=== PATIENT | female | born 1950 | race Caucasian/White ===

== ENCOUNTER 2023-06-17 08:00 | Outpatient (AMB) | payer MEDICARE, SELFPAY ==
--- NOTE | 2023-06-17 08:05 | A.OFFVIS_ITS ---
Intake Vital Signs 06/17/23 08:17 Height 5 ft 3 in Weight 186 lb 3 oz BMI 33.0 BP 110/80 Blood Pressure Location Lt brachial Position Sitting Pulse 68 Pulse Source Pulse Oximeter Pulse Oximetry (%) 97 Oxygen Delivery Method Room Air Intake Visit Reasons: E-DIGITAL ART DIRECTOR: Sleep Apnea /Headache-Confirmed Intake Note: NPV for headaches and sleep issues Anesthesiology Medical Doctor Required: No Allergies Bactrim Allergy (Severe, Uncoded 06/17/23 08:07) Rash HPI HPI Comments History of Present Illness Details 72 y/o female patient with anxiety and G ERD presents for new in-person visit for sleep consultation and migraine headache. Pt reports that she can't sleep well, having difficulty falling asleep and staying sleep. She is on mirtazapine 30 mg and it helps her to fall asleep. Pt feels she can't breath well when she sleep and also with any activities. Pt has not evaluated by flower arranger, yet. She wakes up frequently with gasping and having daytime tiredness and sleepiness. Pt also reports headache, feels buzzing on her frontal and occipital, it can last couple of hours to day. Resting in the dark room is the most helpful. Now she also headache almost once a week, more manageable. Pt takes propranolol 60 mg daily now. Pt reports that she had really bad headache before starting mirtazapine, it helps her sleep better and headache has improved. She tried magnesium, vitamin B2, Nurtec, Ajovy and physical therapy, but not really helpful to prevent headache. Sleep questionnaire: Have you ever been diagnosed with a sleep disorder? Insomnia. Have you ever had a sleep study in the past? No. Have you ever been treated for a sleep disorder? Yes, with mirtazapine. Do you take medications for a sleep disorder? Mirtazapine. Do you snore? Yes. Do you wake up gasping at night? Yes, sometimes. Do you have episodes of apneas? Don't know. If yes, are they witnessed? No. Do you have episodes of nocturnal chest pain or dyspnea? No. Do you have difficulty initiating sleep? Yes. Do you have difficulty maintaining sleep? Yes. Do you wake up tired? Yes. Do you have headaches upon awakening? Yes, maybe once a week, buzzing. Do you wake up with dry mouth or throat? Yes. Do you have GERD? Yes. Do you have nocturia? Yes. Do you have nocturnal leg cramps? Yes, sometimes. Do you have symptoms of restless legs? No. Do you act out your dreams? No. Sleep hygiene questionnaire: What is your usual sleep routine? Usual bedtime is at 9:30 pm; Usual wake up time is at 3 am. Do you take naps? No. Is your sleep environment cool, dark, and quiet? Yes. Do you exercise? No. Do you take caffeine or other stimulants? One cup of coffee in the morning sometimes. Do you use electronics in bed? No. What is your work schedule? N/A. Hypersomnolence questionnaire: Do you have daytime tiredness or fatigue? Yes. Do you easily fall asleep when inactive? No. Have you ever had episodes of sudden weakness? No. Have you ever had episodes of sudden weakness associated with strong emotions? No. PFSH Medical History (Updated 06/20/23 @ 08:31 by Kathy Shaikh CNP) Depression Anxiety HLD (hyperlipidemia) HTN (hypertension) Gallbladder calculus Surgical History (Updated 06/17/23 @ 08:15 by Sheryl White CMA) S/P spinal surgery Family History (Updated 06/17/23 @ 08:16 by Sheryl White CMA) Mother History of brain cancer Father AA (aortic aneurysm) Social History (Updated 06/17/23 @ 08:17 by Sheryl White CMA) Alcohol intake: never Patient Tobacco Use Status: Never used Tobacco Review of Systems Const All systems reviewed & are unremarkable except as noted in HPI and below ENT Reports Normal hearing present Neuro Reports Normal hearing present Physical Exam Vital Signs: Last Vital Signs Pulse 68 06/17/23 08:17 BP 110/80 06/17/23 08:17 Pulse Ox 97 06/17/23 08:17 Oxygen Delivery Method Room Air 06/17/23 08:17 BMI result Body Mass Index 33.0 Const General: cooperative Nutritional Appearance: obese Orientation/consciousness: patient oriented x3 Neck Neck: Yes full ROM and Yes supple Resp Effort & Inspection: audible wheezes Neuro General: patient oriented x3 and moves all extremities Cranial nerves: Yes Facial sensation intact/muscles of mastication intact, Yes Bilaterally intact EOM present, Yes Normal facial strength present, Yes Midline tongue present, Yes Symmetric palate elevation present, Yes Normal hearing present, Yes Ability to bilaterally rotate head present and Yes Ability to bilaterally elevate shoulders present Gait exam (Neuro): Antalgic gait present Motor exam (neuro): 5/5 motor strength present throughout, Pronator motor function not present and no tremor noted Psych Appearance: grossly normal Mental Status: mental status grossly normal Speech and movement: Normal speech and movement present Affect: normal affect Attitude: cooperative Assessment & Plan Assessment & Plan (1) Shortness of breath on exertion: Code(s): R06.02 - Shortness of breath (2) Daytime sleepiness: Code(s): R40.0 - Somnolence (3) Snoring: Code(s): R06.83 - Snoring (4) Insomnia: Code(s): G47.00 - Insomnia, unspecified (5) Headache: Code(s): R51.9 - Headache, unspecified Plan Pt is advised to undergo in lab sleep study to assess for sleep apnea. Will f/u with pt after study to discuss results and appropriate treatment options. Sleep hygiene education provided. Will consider refer patient to flower arranger after sleep study. Pt to call with any worsening concerns or questions. Orders: Orders RT PSG in-lab sleep study 06/17/23 E78.5 - Hyperlipidemia, unspecified, I10 - Essential (primary) hypertension, R06.02 - Shortness of breath, R06.83 - Snoring, R40.0 - Somnolence Coding Level of Care Code New Pt Level 4 (92425) Diagnoses Shortness of breath on exertion R06.02 Daytime sleepiness R40.0 Snoring R06.83 Insomnia G47.00 Headache R51.9
[2023-06-17 08:17] VITALS: BP 110/80; PULSE 68; O2SAT 97; BMI 33.0
== END 2023-06-17 08:50 | disposition home or self-care (01) ==
PROVIDERS: Visit Provider Nurse Practitioner Family
DX: R06.02 Shortness of breath (principal); R40.0 Somnolence; R06.83 Snoring; G47.00 Insomnia, unspecified; R51.9 Headache, unspecified
CPT/HCPCS: 99204

== ENCOUNTER → 2023-06-17 08:00 | Outpatient (BNVA) | payer MEDICARE, SELFPAY | PROVIDERS: Visit Provider Nurse Practitioner Family ==

== ENCOUNTER → 2023-07-05 20:30 | Outpatient (BNV) | payer MEDICARE, SELFPAY | PROVIDERS: Visit Provider Psychiatry & Neurology Neurology | DX: R06.83 Snoring (principal); R40.0 Somnolence; R09.02 Hypoxemia | CPT/HCPCS: 95810 ==

== ENCOUNTER → 2023-07-05 20:30 | Outpatient (REF) | payer MEDICARE, SELFPAY | LOC: HO.SL 20:30 | PROVIDERS: Visit Provider Nurse Practitioner Family | DX: R06.83 Snoring (principal); R40.0 Somnolence; R06.02 Shortness of breath | CPT/HCPCS: 95810 ==

== ENCOUNTER 2023-08-16 12:16 | Outpatient (REF) | payer MEDICARE, SELFPAY ==
[2023-08-16 12:40] LABS: ABG Refer to POC result
[2023-08-16 12:42] LABS: ABG Base Excess 4.7 mmol/L; ABG HCO3 27 mmol/L (22-26); ABG pCO2 36 mmHg (32-45); ABG pH 7.49 (7.35-7.45); ABG pO2 80 mmHg (83-108)
== END 2023-08-16 12:17 | disposition home or self-care (01) ==
LOC: HO.LAB 12:16
PROVIDERS: Visit Provider Nurse Practitioner Family
DX: R09.02 Hypoxemia (principal)
CPT/HCPCS: 82803

== ENCOUNTER 2023-10-13 09:34 | Outpatient (AMB) | payer MEDICARE, SELFPAY ==
--- NOTE | 2023-10-13 09:55 | MHC.OFFVIS ---
Intake Vital Signs 10/13/23 09:57 Height 5 ft 3 in Weight 184 lb 6.287 oz BMI 32.7 BP 126/84 Blood Pressure Location Rt brachial Position Sitting Pulse 70 Pulse Source Doppler Pulse Oximetry (%) 99 Oxygen Delivery Method Room Air Intake Visit Reasons: Hypoxemia Allergies Bactrim Allergy (Severe, Uncoded 06/17/23 08:07) Rash HPI Hypoxemia HPI Details 73-year-old lady, nonsmoker, with no prior history pulmonary concerns referred for evaluation of intermittent dyspnea on exertion, particularly with stairs and inclines, and nocturnal hypoxemia noted on sleep study did did not demonstrate underlying obstructive sleep apnea. Patient denies family history of lung disease. She was employed with no exposure to industrial dusts. She does complain of seasonal environmental allergies. She does have cats as pets. [facility] Medical History (Updated 10/13/23 @ 10:20 by Dank Kaiser MD) Depression Anxiety HLD (hyperlipidemia) HTN (hypertension) Gallbladder calculus Surgical History (Updated 06/17/23 @ 08:15 by Sheryl White CMA) S/P spinal surgery Family History (Updated 06/17/23 @ 08:16 by Sheryl White CMA) Mother History of brain cancer Father AA (aortic aneurysm) Social History Alcohol intake: never Patient Tobacco Use Status: Never used Tobacco Review of Systems Const Denies daytime sleepiness, Denies excessive sweating, Denies fatigue, Denies fever(s), Denies lethargy, Denies malaise, Denies night sweats, Denies snoring and Denies weight loss Eyes Denies blurry vision and Denies itchy eyes ENT Denies nasal congestion, Denies post nasal drip, Denies sinus pain, Denies sinus pressure and Denies other ( Thrush) Card Denies chest pain, Denies pedal edema, Denies dyspnea, Reports dyspnea on exertion, Reports orthopnea and Denies paroxysmal nocturnal dyspnea Resp Denies cough, Denies hemoptysis, Denies excessive phlegm production, Denies dyspnea, Reports dyspnea on exertion, Denies snoring and Denies wheezing GI Denies abdominal pain and Denies heartburn Musc Denies myalgias, Denies arthralgias and Denies joint swelling Skin/Breast Denies rash Neuro Denies memory loss and Denies seizure-like activity Psych Denies abnormal sleep pattern, Denies anxiety and Denies memory loss Endo Denies excessive sweating, Denies fatigue and Denies heat intolerance Chao/Lymph Denies easy bruising Aller/Immun Denies itchy eyes, Denies seasonal rhinorrhea and Denies wheezing Physical Exam Vital Signs: Last Vital Signs Pulse 70 10/13/23 09:57 BP 126/84 10/13/23 09:57 Pulse Ox 99 10/13/23 09:57 Oxygen Delivery Method Room Air 10/13/23 09:57 BMI result Body Mass Index 32.7 Const General: no acute distress and alert Nutritional Appearance: not obese Orientation/consciousness: Other orientation findings ( oriented) HEENT Head: Yes atraumatic Eyes General: appearance normal, both eyes and all related structures Sclerae: sclerae normal EOM: EOMs intact bilaterally Neck Neck: Yes supple Lymphatic: no lymphadenopathy noted Resp Effort & Inspection: normal respiratory effort and no use of accessory muscles Auscultation: clear to auscultation bilaterally Cardio Rate: regular rate Rhythm: regular rhythm Heart sounds: no gallops, no murmurs and no rubs Skin General skin exam: other ( warm) Extrem General: No clubbing, No cyanosis and Yes edema (Trace bilateral) Assessment & Plan Assessment & Plan (1) Dyspnea on exertion: Code(s): R06.09 - Other forms of dyspnea Plan: Unclear etiology, may have both cardiac and pulmonary components. Will obtain pulmonary function test and 2D echocardiogram for further evaluation. (2) Nocturnal hypoxemia: Code(s): G47.34 - Idiopathic sleep related nonobstructive alveolar hypoventilation Plan: Will obtain overnight oximetry for further evaluation. Orders: Orders PFT pulmonary function test Today R06.09 - Other forms of dyspnea CA echo transthoracic complete Today R06.09 - Other forms of dyspnea Overnight Pulse Oximetry Today G47.34 - Idiopathic sleep related nonobstructive alveolar hypoventilation Coding Level of Care Code New Pt Level 4 (27697) Diagnoses Dyspnea on exertion R06.09 Nocturnal hypoxemia G47.34
[2023-10-13 09:57] VITALS: BP 126/84; PULSE 70; O2SAT 99; BMI 32.7
== END 2023-10-13 10:19 | disposition home or self-care (01) ==
PROVIDERS: PCP Physician Assistant Medical; Referring Provider Nurse Practitioner Family; Visit Provider Internal Medicine Pulmonary Disease
DX: R06.09 Other forms of dyspnea (principal); G47.34 Idiopathic sleep related nonobstructive alveolar hypoventilation
CPT/HCPCS: 99204

== ENCOUNTER → 2023-10-13 09:34 | Outpatient (BNVA) | payer MEDICARE, SELFPAY | PROVIDERS: Referring Provider Nurse Practitioner Family; Visit Provider Internal Medicine Pulmonary Disease | DX: G47.34 Idiopathic sleep related nonobstructive alveolar hypoventilation (principal); R06.09 Other forms of dyspnea | CPT/HCPCS: 99202 ==

== ENCOUNTER 2023-10-20 08:57 | Outpatient (AMB) | payer MEDICARE, SELFPAY ==
--- NOTE | 2023-10-20 08:19 | A.OFFVIS_ITS ---
Intake Vital Signs 10/20/23 09:16 Height 5 ft 3 in Weight 185 lb BMI 32.8 BP 125/82 Blood Pressure Location Rt brachial Position Sitting Pulse 67 Pulse Source Pulse Oximeter Pulse Oximetry (%) 98 Oxygen Delivery Method Room Air Intake Visit Reasons: 4m follow up Sleep Apnea /Headache-LVM Intake Note: Patient presents for 4 month F/U. headaches dont go away Allergies Bactrim Allergy (Mild, Uncoded 10/20/23 09:23) Rash HPI HPI Comments History of Present Illness Details 73 y/o female patient presents for follo w up of sleep study. The PSG sleep study result was no evidence of sleep apnea. The AHI was less than 2 and O2 alcon was 79%. Oxygen was less than 88% for over 20 min, and supplemental oxygen was used during the sleep study. Pt reports she was refered to industrial green systems designer to assess hypoxemia and has appointment on 10/27/23. Pt reports started inhaler for wheezing and shortness of breath, but not really helpful. She can't walk more than 10 steps due to shortness of breath and need to rest. She has been wheezing for a long time. Pt states that she is a never smoker, no hx of asthma. Pt also has appointment with forms examiner. Pt reports she wakes up with pounding headache, it can last couple of hours to all day. She tried injection and nurtec but they did not help to prevent the headache. She uses mirtazapine for sleep. [facility] Medical History Depression Anxiety HLD (hyperlipidemia) HTN (hypertension) Gallbladder calculus Surgical History S/P spinal surgery Family History Mother History of brain cancer Father AA (aortic aneurysm) Social History Alcohol intake: never Patient Tobacco Use Status: Never used Tobacco Review of Systems Const All systems reviewed & are unremarkable except as noted in HPI and below ENT Reports Normal hearing present Neuro Reports Normal hearing present Physical Exam Vital Signs: Last Vital Signs Pulse 67 10/20/23 09:16 BP 125/82 10/20/23 09:16 Pulse Ox 98 10/20/23 09:16 Oxygen Delivery Method Room Air 10/20/23 09:16 BMI result Body Mass Index 32.8 Const General: no acute distress and alert Nutritional Appearance: not obese Orientation/consciousness: patient oriented x3 and Other orientation findings ( oriented) HEENT Head: Yes atraumatic Eyes General: appearance normal, both eyes and all related structures Sclerae: sclerae normal EOM: EOMs intact bilaterally Neck Neck: Yes supple Lymphatic: no lymphadenopathy noted Resp Effort & Inspection: audible wheezes Cardio Rate: regular rate Rhythm: regular rhythm Heart sounds: no gallops, no murmurs and no rubs Skin General skin exam: other ( warm) Neuro General: patient oriented x3 and moves all extremities Cranial nerves: Yes Facial sensation intact/muscles of mastication intact, Yes Bilaterally intact EOM present, Yes Normal facial strength present, Yes Midline tongue present, Yes Symmetric palate elevation present, Yes Normal hearing present, Yes Ability to bilaterally rotate head present and Yes Ability to bilaterally elevate shoulders present Gait exam (Neuro): Antalgic gait present Motor exam (neuro): 5/5 motor strength present throughout, Pronator motor function not present and no tremor noted Extrem General: No clubbing, No cyanosis and Yes edema (Trace bilateral) Psych Appearance: grossly normal Mental Status: mental status grossly normal Speech and movement: Normal speech and movement present Affect: normal affect Attitude: cooperative Assessment & Plan Assessment & Plan (1) Dyspnea on exertion: Code(s): R06.09 - Other forms of dyspnea (2) Nocturnal hypoxemia: Code(s): G47.34 - Idiopathic sleep related nonobstructive alveolar hypoventilation Plan Advised patient to continue to follow up with forms examiner and industrial green systems designer. Coding Level of Care Code Est Pt Level 3 (93814) Diagnoses Dyspnea on exertion R06.09 Nocturnal hypoxemia G47.34
[2023-10-20 09:16] VITALS: BP 125/82; PULSE 67; O2SAT 98; BMI 32.8
== END 2023-10-20 09:41 | disposition home or self-care (01) ==
PROVIDERS: Visit Provider Nurse Practitioner Family
DX: R06.09 Other forms of dyspnea (principal); G47.34 Idiopathic sleep related nonobstructive alveolar hypoventilation
CPT/HCPCS: 99213

== ENCOUNTER → 2023-10-20 08:57 | Outpatient (BNVA) | payer MEDICARE, SELFPAY | PROVIDERS: Visit Provider Nurse Practitioner Family | DX: R06.09 Other forms of dyspnea (principal); G47.34 Idiopathic sleep related nonobstructive alveolar hypoventilation | CPT/HCPCS: 99212 ==

== ENCOUNTER → 2023-10-31 09:34 | Outpatient (REF) | payer MEDICARE, SELFPAY ==
--- NOTE | 2023-10-31 09:37 | CA_ITS ---
Transthoracic Echocardiogram Patient (Last, First, Middle): Irina Erazo, Gender: Female Date of : 1950 Age: 73 Procedure Date: 10/31/2023 Procedure Type: Transthoracic Echocardiogram Location: OP Height: 157.48 cm Weight: 80.74 kg BSA: 1.82 m2 Heart Rate: bpm BP: 128 / 82 mmHg Forestry Technical Officer: Referring MD: Dank Kaiser MD Senior Project Manager Engineering: Ryan Aguilar MD Symptoms: R06.09 - Other forms of dyspnea Study Quality: Technically Difficult ECG Rhythm: Sinus Conclusions: - 1. Normal LV ejection fraction 55-60% with mild LVH with grade 1 diastolic dysfunction 2. Cardiac valves not well visualized with cardiac valvular Dopplers within normal limits 3. Normal RV systolic pressure Findings Left Ventricle Normal left ventricular size and systolic function. There is mildly increased left ventricular wall thickness. The visually estimated ejection fraction is between 55-60%. Regional wall motion abnormalities can not be excluded due to suboptimal endocardial definition. Spectral Doppler is indicative of an impaired relaxation filling pattern. E/E prime ratio is <8, consistent with normal filling pressures. Evidence suggests grade I (mild) diastolic dysfunction. Right Ventricle The right ventricle was not well visualized. Atria The left atrium is normal in size. There is lipomatous hypertrophy of the interatrial septum. Interatrial shunt cannot be excluded. The right atrium was not well visualized. Aortic Valve The aortic valve was not well visualized. There is no aortic valve stenosis. There is no aortic valve regurgitation. Mitral Valve There is mild anterior and posterior mitral leaflet thickening. There is trace mitral valve regurgitation. There is no mitral valve stenosis. Pulmonic Valve The pulmonic valve was not well visualized. Tricuspid Valve The tricuspid valve was not well visualized. There is trace tricuspid valve regurgitation. The right ventricular systolic pressure is normal. The right ventricular systolic pressure is 25 mmHg. Normal right atrial pressure. There is no evidence of pulmonary hypertension. Great Vessels The aorta was not well visualized. The pulmonary artery was not well visualized. Venous The inferior vena cava is normal in size and collapses greater than 50% with inspiration. Pericardium/Pleural The pericardium was not well visualized. Prior Study Comparison No prior study available for comparison. delay in reporting due to technical issues Measurements 2D Linear Measurements IVSd: 1.31 0.6-0.9/0.6-1.0 cm LVIDd: 3.87 3.9-5.3/4.2-5.9 cm LVIDd Index: 2.13 2.4-3.2/2.2-3.1 cm/m2 LVIDs: 2.58 2.0-3.6 cm LVPWd: 1.35 0.7-1.1 cm Ao Root: 3.00 2.1-3.5 cm LA Diam: 3.40 2.7-3.8/3.0-4.0 cm LAIDs Index: 1.87 1.5-2.3 cm/m2 LV Mass: 229.30 67-162/88-224 g LV Mass Index: 125.99 43-95/49-115 g/m2 LVOT Diam: 2.20 3.0+(-)1.3 cm 2D Systolic Function EF 4C: 61.80 >55% EF 2C: 56.80 >55% EF BiP: 59.50 >55% Mitral Valve MV Pk E: 0.46 MV PK A: 0.82 MV Decel Time: 297.00 E/A: 0.60 E'Lateral: 5.77 E'Medial: 4.24 E/E' Med: 10.80 E/E' Lat: 7.90 PHT: 87.00 MVA PHT: 2.53 Decel Wilkes: 1.54 Aortic Valve AoV Pk Ko: 1.61 AoV Mn Ko: 1.02 AoV VTI: 0.29 AoV Pk Grad: 10.00 Aov Mn Grad: 5.00 MONTSE Cont.VTI: 3.07 LVOT LVOT Pk Ko: 1.05 LVOT Mn Ko: 0.64 LVOT VTI: 0.23 LVOT Pk Grad: 4.00 LVOT Mn Grad: 2.00 LVOT Diam: 2.20 LVOT Area: 3.80 Diastolic Function MV Pk E: 0.46 MV Pk A: 0.82 E/A: 0.60 E'Medial: 4.24 E/E' Med: 10.80 E' Laterial: 5.77 E/E' Lat: 7.90 Right Ventricle TAPSE (mm): 18.00 TVS' Ko: 12.00 Tricuspid Valve TR Pk Ko: 2.33 TR Pk Grad: 22.00 RA Press: 3.00 RVSP: 25.00 Great Vessels Aorta Ao Root-2D: 3.00 2.0-3.7 cm Ao Asc: 3.20 2.1-3.4 cm Pulmonary Valve PV Pk Ko: 1.04 Peak PV Grad: 4.00 Updated in Other Vendor System with Status of Final Ryan Aguilar MD electronically signed on 11/03/2023 12:57:45 PM with status of Final
== END ==
LOC: HO.CARD 09:34
PROVIDERS: PCP Physician Assistant Medical; Visit Provider Internal Medicine Pulmonary Disease
DX: R06.09 Other forms of dyspnea (principal)
CPT/HCPCS: 93306

== ENCOUNTER → 2023-10-31 09:37 | Outpatient (BNV) | payer MEDICARE, SELFPAY | PROVIDERS: PCP Physician Assistant Medical; Visit Provider Internal Medicine Cardiovascular Disease | DX: I34.89 Other nonrheumatic mitral valve disorders (principal) | CPT/HCPCS: 93306 ==

== ENCOUNTER 2023-11-25 10:45 | Outpatient (REF) | payer MEDICARE, SELFPAY ==
[2023-11-25 08:34] VITALS: PULSE 65; RESP 14; O2SAT 98
--- NOTE | 2023-11-25 15:20 | PFT_ITS ---
Flows: FEV1: 73 % of predicted at 1.43 L FVC: 80 % of predicted at 2.02 L FEV1/FVC: 70 % Bronchodilator response: Absent Impression: Spirometry with no evidence of obstructive ventilatory defect, but suggestion of underlying restrictive ventilatory defect. MTDD
== END 2023-11-25 10:46 | disposition home or self-care (01) ==
LOC: HO.RESP 10:45
PROVIDERS: PCP Physician Assistant Medical; Visit Provider Internal Medicine Pulmonary Disease
DX: R06.09 Other forms of dyspnea (principal); G47.34 Idiopathic sleep related nonobstructive alveolar hypoventilation; Z91.09 Other allergy status, other than to drugs and biological substances
CPT/HCPCS: 94010; 94640; 94727; 94729; 99212

== ENCOUNTER 2023-11-25 11:43 | Outpatient (AMB) | payer MEDICARE, SELFPAY ==
[2023-11-25 11:45] VITALS: BP 138/82; PULSE 66; O2SAT 99; BMI 32.0
--- NOTE | 2023-11-25 11:45 | MHC.OFFVIS ---
Intake Vital Signs 11/25/23 11:45 Height 5 ft 3 in Weight 180 lb 12.465 oz BMI 32.0 BP 138/82 Blood Pressure Location Rt brachial Position Sitting Pulse 66 Pulse Source Doppler Pulse Oximetry (%) 99 Oxygen Delivery Method Room Air Intake Visit Reasons: Same day PFT Allergies Bactrim Allergy (Mild, Uncoded 10/20/23 09:23) Rash HPI Same day PFT HPI Details 73-year-old lady, nonsmoker, with no prior history pulmonary concerns referred for evaluation of intermittent dyspnea on exertion, particularly with stairs and inclines, and nocturnal hypoxemia noted on sleep study did did not demonstrate underlying obstructive sleep apnea. Patient denies family history of lung disease. She was employed with no exposure to industrial dusts. She does complain of seasonal environmental allergies. She does have cats as pets. After the last office visit patient had spirometry she was not able to tolerate full pulmonary function test demonstrates some bronchodilator response and suspicion for underlying restrictive ventilatory defect. She was not able to get BrezTri. She does derive symptomatic benefit from using DuoNebs during spirometry. [facility] Medical History Depression Anxiety HLD (hyperlipidemia) HTN (hypertension) Gallbladder calculus Surgical History S/P spinal surgery Family History Mother History of brain cancer Father AA (aortic aneurysm) Social History Alcohol intake: never Patient Tobacco Use Status: Never used Tobacco Review of Systems Const Denies daytime sleepiness, Denies excessive sweating, Reports fatigue, Denies fever(s), Denies lethargy, Denies malaise, Denies night sweats, Denies snoring and Denies weight loss Eyes Denies blurry vision and Denies itchy eyes ENT Denies nasal congestion, Denies post nasal drip, Denies sinus pain, Denies sinus pressure and Denies other ( Thrush) Card Denies chest pain, Denies pedal edema, Denies dyspnea, Reports dyspnea on exertion, Denies orthopnea and Denies paroxysmal nocturnal dyspnea Resp Denies cough, Denies hemoptysis, Denies excessive phlegm production, Denies dyspnea, Reports dyspnea on exertion, Denies snoring and Denies wheezing GI Denies abdominal pain and Denies heartburn Musc Denies myalgias, Denies arthralgias and Denies joint swelling Skin/Breast Denies rash Neuro Denies memory loss and Denies seizure-like activity Psych Denies abnormal sleep pattern, Denies anxiety and Denies memory loss Endo Denies excessive sweating, Reports fatigue and Denies heat intolerance Chao/Lymph Denies easy bruising Aller/Immun Denies itchy eyes, Denies seasonal rhinorrhea and Denies wheezing Physical Exam Vital Signs: Last Vital Signs Pulse 66 11/25/23 11:45 BP 138/82 11/25/23 11:45 Pulse Ox 99 11/25/23 11:45 Oxygen Delivery Method Room Air 11/25/23 11:45 BMI result Body Mass Index 32.0 Const General: no acute distress and alert Nutritional Appearance: not obese Orientation/consciousness: Other orientation findings ( oriented) HEENT Head: Yes atraumatic Eyes General: appearance normal, both eyes and all related structures Sclerae: sclerae normal EOM: EOMs intact bilaterally Neck Neck: Yes supple Lymphatic: no lymphadenopathy noted Resp Effort & Inspection: normal respiratory effort and no use of accessory muscles Auscultation: clear to auscultation bilaterally Cardio Rate: regular rate Rhythm: regular rhythm Heart sounds: no gallops, no murmurs and no rubs Skin General skin exam: other ( warm) Extrem General: No clubbing, No cyanosis and No edema Assessment & Plan Assessment & Plan (1) Dyspnea on exertion: Code(s): R06.09 - Other forms of dyspnea Plan: Results of spirometry reviewed, no fixed obstruction, some bronchodilator response, suggestive of underlying restrictive ventilatory defect. Patient does derive symptomatic benefit from duo nebs. Will start on Trelegy. Continue albuterol MDI. (2) Nocturnal hypoxemia: Code(s): G47.34 - Idiopathic sleep related nonobstructive alveolar hypoventilation Plan: Nocturnal oximetry study is pending. (3) Environmental allergies: Code(s): Z91.09 - Other allergy status, other than to drugs and biological substances Plan: Will obtain RAST panel, CBC, and IgE level for further evaluation. Orders: Orders Resp Allergy Profile Region I Today Z91.09 - Other allergy status, other than to drugs and biological substances Complete Blood Count Auto Diff Today Z91.09 - Other allergy status, other than to drugs and biological substances Medications: New Trelegy Ellipta 200-62.5-25 mcg ([id number]) 1 inh inhalation DAILY 30 days 1 ea 6RF NS Z91.09 - Other allergy status, other than to drugs and biological substances Coding Level of Care Code Est Pt Level 4 (70645) Diagnoses Dyspnea on exertion R06.09 Nocturnal hypoxemia G47.34 Environmental allergies Z91.09
== END 2023-11-25 12:02 | disposition home or self-care (01) ==
PROVIDERS: PCP Physician Assistant Medical; Visit Provider Internal Medicine Pulmonary Disease
DX: R06.09 Other forms of dyspnea (principal)
CPT/HCPCS: 94060; 94727; 94729; 99214

== ENCOUNTER 2023-12-15 09:51 | Outpatient (REF) | payer MEDICARE, SELFPAY ==
[2023-12-15 10:32] LABS: MANUAL DIFF FLAG NO
[2023-12-15 10:40] LABS: Basophils Absolute Auto 0.1 X10*3/uL (0.0-0.2); Basophils Percent Auto 0.7 % (0-2); Eosinophils Absolute Auto 0.2 X10*3/uL (0.0-0.4); Eosinophils Percent Auto 2.7 % (0-4); Hematocrit 42.4 % (37.0-47.0); Hemoglobin 14.5 g/dl (12.0-16.0); Imm Gran Abs Auto 0.03 X10*3/uL (0.00-0.03); Imm Gran Pct Auto 0.4 % (0.0-0.4); Lymphocytes Absolute Auto 2.8 X10*3/uL (1.2-4.9); Lymphocytes Percent Auto 35.2 % (20-40); Mean Corpuscular HGB Conc 34.2 g/dl (31.0-35.0); Mean Corpuscular Volume 90.8 fL (80.0-98.0); Mean Platelet Volume 9.4 fL (9.4-12.3); Monocytes Absolute Auto 0.5 X10*3/uL (0.1-1.2); Monocytes Percent Auto 6.6 % (2-11); Neutrophils Absolute Auto 4.4 x10*3/uL (2.0-8.3); Neutrophils Percent Auto 54.4 % (45-73); Platelet Count 258 X10*3/uL (160-400); Red Blood Count 4.67 X10*6/uL (4.20-5.50); Red Cell Distribution Width 12.2 % (11.0-16.0); White Blood Count 8.1 X10*3/uL (4.8-10.8)
== END 2023-12-15 09:52 | disposition home or self-care (01) ==
LOC: HO.LAB 09:51
PROVIDERS: PCP Physician Assistant Medical; Visit Provider Internal Medicine Pulmonary Disease
DX: J45.909 Unspecified asthma, uncomplicated (principal); G47.34 Idiopathic sleep related nonobstructive alveolar hypoventilation; Z91.09 Other allergy status, other than to drugs and biological substances
CPT/HCPCS: 36415; 82785; 85025; 86003; 99212

== ENCOUNTER 2023-12-15 09:51 | Outpatient (AMB) | payer MEDICARE, SELFPAY ==
[2023-12-15 09:52] VITALS: BP 138/82; PULSE 72; O2SAT 97; BMI 31.9
--- NOTE | 2023-12-15 09:52 | MHC.OFFVIS ---
Intake Vital Signs 12/15/23 09:52 Height 5 ft 3 in Weight 180 lb BMI 31.9 BP 138/82 Blood Pressure Location Rt brachial Position Sitting Pulse 72 Pulse Source Doppler Pulse Oximetry (%) 97 Oxygen Delivery Method Room Air Intake Visit Reasons: Dyspnea Allergies Bactrim Allergy (Mild, Uncoded 10/20/23 09:23) Rash HPI Dyspnea HPI Details 73-year-old lady, nonsmoker, with no prior history pulmonary concerns referred for evaluation of intermittent dyspnea on exertion, particularly with stairs and inclines, and nocturnal hypoxemia noted on sleep study did did not demonstrate underlying obstructive sleep apnea. Patient denies family history of lung disease. She was employed with no exposure to industrial dusts. She does complain of seasonal environmental allergies. She does have cats as pets. After the last office visit patient was started on Trelegy with significant improvement in her symptoms. She was not able to complete her immunologic testing yet. She denies any exacerbations. [facility] Medical History Depression Anxiety HLD (hyperlipidemia) HTN (hypertension) Gallbladder calculus Surgical History S/P spinal surgery Family History Mother History of brain cancer Father AA (aortic aneurysm) Social History Alcohol intake: never Patient Tobacco Use Status: Never used Tobacco Review of Systems Const Denies daytime sleepiness, Denies excessive sweating, Denies fatigue, Denies fever(s), Denies lethargy, Denies malaise, Denies night sweats, Denies snoring and Denies weight loss Eyes Denies blurry vision and Denies itchy eyes ENT Denies nasal congestion, Denies post nasal drip, Denies sinus pain, Denies sinus pressure and Denies other ( Thrush) Card Denies chest pain, Denies pedal edema, Denies dyspnea, Denies orthopnea and Denies paroxysmal nocturnal dyspnea Resp Denies cough, Denies hemoptysis, Denies excessive phlegm production, Denies dyspnea, Denies snoring and Denies wheezing GI Denies abdominal pain and Denies heartburn Musc Denies myalgias, Denies arthralgias and Denies joint swelling Skin/Breast Denies rash Neuro Denies memory loss and Denies seizure-like activity Psych Denies abnormal sleep pattern, Denies anxiety and Denies memory loss Endo Denies excessive sweating, Denies fatigue and Denies heat intolerance Chao/Lymph Denies easy bruising Aller/Immun Denies itchy eyes, Denies seasonal rhinorrhea and Denies wheezing Physical Exam Vital Signs: Last Vital Signs Pulse 72 12/15/23 09:52 BP 138/82 12/15/23 09:52 Pulse Ox 97 12/15/23 09:52 Oxygen Delivery Method Room Air 12/15/23 09:52 BMI result Body Mass Index 31.9 Const General: no acute distress and alert Nutritional Appearance: not obese Orientation/consciousness: Other orientation findings ( oriented) HEENT Head: Yes atraumatic Eyes General: appearance normal, both eyes and all related structures Sclerae: sclerae normal EOM: EOMs intact bilaterally Neck Neck: Yes supple Lymphatic: no lymphadenopathy noted Resp Effort & Inspection: normal respiratory effort and no use of accessory muscles Auscultation: clear to auscultation bilaterally Cardio Rate: regular rate Rhythm: regular rhythm Heart sounds: no gallops, no murmurs and no rubs Skin General skin exam: other ( warm) Extrem General: No clubbing, No cyanosis and No edema Assessment & Plan Assessment & Plan (1) Reactive airway disease: Code(s): J45.909 - Unspecified asthma, uncomplicated Plan: Significant improvement on Trelegy. Continue Trelegy and albuterol MDI. (2) Environmental allergies: Code(s): Z91.09 - Other allergy status, other than to drugs and biological substances Plan: Immunologic workup is pending. (3) Nocturnal hypoxemia: Code(s): G47.34 - Idiopathic sleep related nonobstructive alveolar hypoventilation Plan: Overnight oximetry is pending. Coding Level of Care Code Est Pt Level 4 (13045) Diagnoses Reactive airway disease J45.909 Environmental allergies Z91.09 Nocturnal hypoxemia G47.34
== END 2023-12-15 10:13 | disposition home or self-care (01) ==
PROVIDERS: PCP Internal Medicine; Visit Provider Internal Medicine Pulmonary Disease
DX: J45.909 Unspecified asthma, uncomplicated (principal); Z91.09 Other allergy status, other than to drugs and biological substances; G47.34 Idiopathic sleep related nonobstructive alveolar hypoventilation
CPT/HCPCS: 99214

== ENCOUNTER 2024-06-19 09:56 | Outpatient (AMB) | payer MEDICARE, SELFPAY ==
[2024-06-19 10:12] VITALS: BP 140/74; PULSE 89; O2SAT 100; BMI 30.5
--- NOTE | 2024-06-19 10:12 | A.OFFVIS_ITS ---
Vital Signs 06/19/24 10:12 Height 5 ft 3 in Weight 171 lb 15.369 oz BMI 30.5 BP 140/74 H Blood Pressure Location Rt brachial Position Sitting Pulse 89 Pulse Source Doppler Pulse Oximetry (%) 100 Oxygen Delivery Method Room Air Intake Visit Reasons: Dyspnea Allergies Bactrim Allergy (Mild, Uncoded 10/20/23 09:23) Rash HPI HPI Dyspnea: Details: 73-year-old lady, nonsmoker, followed for asthma and allergies. She has been using trilogy with good control of his symptoms, however it is very expensive for her when she hits [employer]. She denies recent exacerbations. Patient has not completed her RAST testing or overnight oximetry. [facility] Medical History Depression Anxiety HLD (hyperlipidemia) HTN (hypertension) Gallbladder calculus Surgical History S/P spinal surgery Family History Mother History of brain cancer Father AA (aortic aneurysm) Social History Alcohol intake: never Patient Tobacco Use Status: Never used Tobacco Review of Systems Const Denies daytime sleepiness, Denies excessive sweating, Denies fatigue, Denies fever(s), Denies lethargy, Denies malaise, Denies night sweats, Denies snoring and Denies weight loss Eyes Denies blurry vision and Denies itchy eyes ENT Denies nasal congestion, Denies post nasal drip, Denies sinus pain, Denies sinus pressure and Denies other ( Thrush) Card Denies chest pain, Denies pedal edema, Denies dyspnea, Denies orthopnea and Denies paroxysmal nocturnal dyspnea Resp Denies cough, Denies hemoptysis, Denies excessive phlegm production, Denies dyspnea, Denies snoring and Denies wheezing GI Denies abdominal pain and Denies heartburn Musc Denies myalgias, Denies arthralgias and Denies joint swelling Skin/Breast Denies rash Neuro Denies memory loss and Denies seizure-like activity Psych Denies abnormal sleep pattern, Denies anxiety and Denies memory loss Endo Denies excessive sweating, Denies fatigue and Denies heat intolerance Chao/Lymph Denies easy bruising Aller/Immun Denies itchy eyes, Denies seasonal rhinorrhea and Denies wheezing Physical Exam Vital Signs: Last Vital Signs Pulse 89 06/19/24 10:12 BP 140/74 H 06/19/24 10:12 Pulse Ox 100 06/19/24 10:12 Oxygen Delivery Method Room Air 06/19/24 10:12 BMI result Body Mass Index 30.5 Const General: no acute distress and alert Nutritional Appearance: not obese Orientation/consciousness: Other orientation findings ( oriented) HEENT Head: Yes atraumatic Eyes General: appearance normal, both eyes and all related structures Sclerae: sclerae normal EOM: EOMs intact bilaterally Neck Neck: Yes supple Lymphatic: no lymphadenopathy noted Resp Effort & Inspection: normal respiratory effort and no use of accessory muscles Auscultation: clear to auscultation bilaterally Cardio Rate: regular rate Rhythm: regular rhythm Heart sounds: no gallops, no murmurs and no rubs Skin General skin exam: other ( warm) Extrem General: No clubbing, No cyanosis and No edema Assessment & Plan Assessment & Plan (1) Reactive airway disease: Code(s): J45.909 - Unspecified asthma, uncomplicated Category: Medical Plan: Reasonable control on trilogy, however can not afford while in [facility], add AirDuo. (2) Environmental allergies: Code(s): Z91.09 - Other allergy status, other than to drugs and biological substances Category: Medical Plan: RAST and IgE level are pending for further workup. (3) Nocturnal hypoxemia: Code(s): G47.34 - Idiopathic sleep related nonobstructive alveolar hypoventilation Category: Medical Plan: Overnight oximetry ordered, but is not completed yet. Orders: Orders Resp Allergy Profile Region I Today Z91.09 - Other allergy status, other than to drugs and biological substances Medications: New fluticasone propion-salmeterol 113-14 mcg/actuation (AirDuo [employer]piClick) 1 inh inhalation BID 30 days 1 ea 3RF Z91.09 - Other allergy status, other than to drugs and biological substances Coding Level of Care Code Est Pt Level 4 (24309) Diagnoses Reactive airway disease J45.909 Environmental allergies Z91.09 Nocturnal hypoxemia G47.34
== END 2024-06-19 10:28 | disposition home or self-care (01) ==
PROVIDERS: PCP Internal Medicine; Visit Provider Internal Medicine Pulmonary Disease
DX: J45.909 Unspecified asthma, uncomplicated (principal); Z91.09 Other allergy status, other than to drugs and biological substances; G47.34 Idiopathic sleep related nonobstructive alveolar hypoventilation
CPT/HCPCS: 99214

== ENCOUNTER → 2024-06-19 09:56 | Outpatient (BNVA) | payer MEDICARE, SELFPAY | PROVIDERS: PCP Internal Medicine; Visit Provider Internal Medicine Pulmonary Disease | DX: J45.909 Unspecified asthma, uncomplicated (principal); G47.34 Idiopathic sleep related nonobstructive alveolar hypoventilation; Z91.09 Other allergy status, other than to drugs and biological substances | CPT/HCPCS: 99212 ==

== ENCOUNTER 2024-12-19 10:19 | Outpatient (AMB) | payer MEDICARE, SELFPAY ==
[2024-12-19 10:23] VITALS: BP 111/67; PULSE 85; O2SAT 99; BMI 29.9
--- NOTE | 2024-12-19 10:23 | MHC.OFFVIS ---
Vital Signs 12/19/24 10:23 Height 5 ft 3 in Weight 168 lb 10.458 oz BMI 29.9 BP 111/67 Blood Pressure Location Rt brachial Position Sitting Pulse 85 Pulse Source Doppler Pulse Oximetry (%) 99 Oxygen Delivery Method Room Air Intake Visit Reasons: Dyspnea Allergies Bactrim Allergy (Mild, Uncoded 10/20/23 09:23) Rash HPI HPI Dyspnea: Details: 74-year-old lady, nonsmoker, followed for asthma and allergies. She has been using Trelegy with reasonable, but not complete control of her symptoms, however it is very expensive for her when she hits [email or web address], at that time she is using AirDuo. She denies recent exacerbations. Patient has not completed her RAST testing or overnight oximetry. [facility] Medical History Depression Anxiety HLD (hyperlipidemia) HTN (hypertension) Gallbladder calculus Surgical History S/P spinal surgery Family History Mother History of brain cancer Father AA (aortic aneurysm) Social History Alcohol intake: never Patient Tobacco Use Status: Never used Tobacco Review of Systems Const Denies daytime sleepiness, Denies excessive sweating, Denies fatigue, Denies fever(s), Denies lethargy, Denies malaise, Denies night sweats, Denies snoring and Denies weight loss Eyes Denies blurry vision and Denies itchy eyes ENT Denies nasal congestion, Denies post nasal drip, Denies sinus pain, Denies sinus pressure and Denies other ( Thrush) Card Denies chest pain, Denies pedal edema, Denies dyspnea, Denies orthopnea and Denies paroxysmal nocturnal dyspnea Resp Denies cough, Denies hemoptysis, Denies excessive phlegm production, Denies dyspnea, Denies snoring and Denies wheezing GI Denies abdominal pain and Denies heartburn Musc Denies myalgias, Denies arthralgias and Denies joint swelling Skin/Breast Denies rash Neuro Denies memory loss and Denies seizure-like activity Psych Denies abnormal sleep pattern, Denies anxiety and Denies memory loss Endo Denies excessive sweating, Denies fatigue and Denies heat intolerance Chao/Lymph Denies easy bruising Aller/Immun Denies itchy eyes, Denies seasonal rhinorrhea and Denies wheezing Physical Exam Vital Signs: Last Vital Signs Pulse 85 12/19/24 10:23 BP 111/67 12/19/24 10:23 Pulse Ox 99 12/19/24 10:23 Oxygen Delivery Method Room Air 12/19/24 10:23 BMI result Body Mass Index 29.9 Const General: no acute distress and alert Nutritional Appearance: not obese Orientation/consciousness: Other orientation findings ( oriented) HEENT Head: Yes atraumatic Eyes General: appearance normal, both eyes and all related structures Sclerae: sclerae normal EOM: EOMs intact bilaterally Neck Neck: Yes supple Lymphatic: no lymphadenopathy noted Resp Effort & Inspection: normal respiratory effort and no use of accessory muscles Auscultation: clear to auscultation bilaterally Cardio Rate: regular rate Rhythm: regular rhythm Heart sounds: no gallops, no murmurs and no rubs Skin General skin exam: other ( warm) Extrem General: No clubbing, No cyanosis and No edema Assessment & Plan Assessment & Plan (1) Reactive airway disease: Code(s): J45.909 - Unspecified asthma, uncomplicated Category: Medical Plan: Improved, but suboptimal control on Trelegy, will consider immunologic therapy based on the laboratory evaluation. Continue Trelegy and albuterol MDI. (2) Hypoxemia: Code(s): R09.02 - Hypoxemia Category: Medical Plan: Overnight oximetry study is pending. (3) Environmental allergies: Code(s): Z91.09 - Other allergy status, other than to drugs and biological substances Category: Medical Plan: Likely underlying allergic component, immunologic workup is pending. Now also with allergic rhinitis, will start on nasal ipratropium. Medications: New ipratropium bromide administer into each nostril 2 sprays intranasal TID-QID PRN 15 mL 6RF nasal congestion Coding Level of Care Code Est Pt Level 4 (66899) Complex EM visit Add On G2211 Diagnoses Reactive airway disease J45.909 Hypoxemia R09.02 Environmental allergies Z91.09
--- OUTSIDE RECORDS SUMMARY | 2024-12-19 12:04 | XMS_ITS | Clinical Summary ---
Author Organization [facility] Address [address] [place] [address] Care Team Providers Care Panel Beater Name Role Phone Unavailable Primary Care Provider Unavailabl e Source Comments PLEASE NOTE, if this patient is a minor, it may be UNLAWFUL to discuss sensitive information that is contained in these records (such as FAMILY PLANNING, MENTAL HEALTH or SUBSTANCE ABUSE) with the minor patient's parent or other person without the patient's specific authorization.[facility] Immunizations Name Administration Dates Next Due Moderna COVID-19 Vaccine, re d cap blue label, 12+ Primary Series 11/20/2021,02/17/2021,01/20/2021 Social History Tobacco Use Types Packs/Day Years Used Date Smoking Tobacco: Never Assessed Social Connections Answer Date Recorded Connectedness 0 06/24/2024 Financial Resource Strain Answer Date R ecorded Financial Resource Strain 0 2021 Stress Answer Date Recorded Stress 0 11/20/2021 Physical Activity Answer Date Recorded Physical Activity 0 11/20/2021 Food Insecurity Answer Date Recorded Food 0 06/28/2024 Transportation Needs Answer Date Record ed Transportation 0 11/20/2021 Housing Stability Answer Date Recorded Housing 0 11/20/2021 Safety and Environment Answer Date Ke rded Safety 0 11/20/2021 Utilities Answer Date Recorded Utilities 0 11/20/2021 Employment Answer Date Recorded Stress 0 06/24/2024 Comments Unknown Sex and Gender Information Value Date Recorded Sex Assigned at Not on file Legal Sex Female 6:53 AM PDT Gender Identity Not on file Sexual Orientation Not on file Plan of Treatment Health Maintenance Due Date Last Done Comments Hepatitis C Screening 1950 Lipid Screening 1950 Tobacco Screening 1950 Hypertension Screening (#1) 1967 CT Colonography 1994 Colonoscopy 1994 Colorectal Cancer Screening 1994 FIT/gFOBT 1994 Fecal DNA 1994 Flexible Sigmoidoscopy 1994 Imm-Zoster, Recombinant (1 of 2) 1999 Imm-DTaP/Tdap/Td (1 - Tdap) 01/28/2001 01/27/2001 Bone Density Screening 2014 Falls Prevention 2014 Imm-Pneumococcal 65+ (2 of 2 - PPSV23) 08/04/2019 08/04/2018 [id number] ( season) 2024 11/20/2021, 02/17/2021, 01/20/2021 Imm-Influenza (#1) 2024 07/09/2021, 1 , 08/11/2019, Additional history exists Alcohol and Drug Screen 10/03/2024 Depression Annual Screen 10/03/2024 Insurance [employer] Member Subscriber Plan / Payer (Ef fective 2021-Present) Name:Irina Erazo Relation to Subscriber:Self Name:Irina Erazo Payer ID:[id number] Group ID:Not on file Type:Indemnity Address: [address] [place] [address]
--- OUTSIDE RECORDS SUMMARY | 2024-12-19 12:04 | XMS_ITS ---
Author Organization [facility] Address [address] [place] [address] Care Team Providers Care Medical Anthropology Director Name Role Phone DORIE MUÑOZ Unavailable [phone] AMBROCIO MARCIE Unavailable [phone] ALLERGIES Allergen (clinical drug ingredient) Drug/Non Drug Allergy documented on EMR Reaction Allergy Type Onset Date Status sulfamethoxazole / trimethoprim Bactrim Unknown Drug Allergy Active RESULTS Component Value Reference Range Notes TSH+T4F+T3Free Reviewed date:11/23/2024 08:13:13 AM Interpretation: Performing Lab:[facility], [address], [place], Phone - [phone], Director - Jose Notes/Report: TSH 0.444 0.450-4.500 uIU/mL Triiodothyronine (T3), Free 3.5 2.0-4.4 pg/mL T4,Free(Direct) 1.59 0.82-1.77 ng/dL REASON FOR VISIT pt is here for f/u on shaky and weak legs- pt states she stopped the buspirone because urgent care stated its a side affect of that med- pt is here today with nausea, cold body/chills, shaky legs andheadache every daysee task 11/20 MEDICATIONS Medication SIG (Take, Route, Frequency, Duration) Notes Start Date End Date Status Losartan Potassium-HCTZ 100-12.5 MG Take 1 tablet by mouth once daily for 90 Active predniSONE 10 MG 4 tab x 3 days 3 tab s x 3 days2 tabs x 3 days1 tab x 3 days Orally Once a day for 12 days 11/22/2024 Active busPIRone HCl 5 MG 1 tablet Orally Twic e a day for 30 days 10/25/2024 Not-Taking Atorvastatin Calcium 40 MG Take 1 tablet by mouth once daily for 90 Active Celecoxib 200 MG Take 1 capsule by mo uth once daily for 90 Active LORazepam 0.5 MG 1 tab Orally Once a day for 30 days 11/22/2024 Active Trelegy Ellipta 200-62.5-25 MCG/ACT 1 puff Inhalation Once a day Active Venlafaxine HCl ER 37.5 MG 1 capsule with food Orally Once a day for 90 days Active Omeprazole Magnesium 20 MG 1 tablet 1/2 to 1 hour before morning meal Orally Once a day for 90 days PRN Active Vitamin D 50 MCG (1999 UT) 1 tablet Orally Once a day Active Calcium 500 MG 1 tablet with meals Orally once daily Active SOCIAL HISTORY Tobacco Use: Social History Observation Description Date Details (start date - stop date) Never Smoker NA - NA Sex Assigned At : Social History Observation Description Sex Assigned At Unknown Tobacco Use/Smoking Question Answer Notes Are you a nonsmoker Section Notes: Tob: None ETOH: none Drug Use: None Retired. VITAL SIGNS Heart Rate 90 /min 11/22/2024 Blood pressure systolic 138 mm Hg 11/22/19 25 Blood pressure diastolic 78 mm Hg 025 Weight 169.8 lbs 11/22/2024 BMI 32.08 kg/m2 11/22/2024 Height 61 in 11/22/2024 Oximetry 96 % 11/22/2024 Encounters Encounter Location Date Provider Diagnosis [facility] [address] [place] [address] 11/22/2024 MARCIE ALBRECHT Shortness of breath R06.02 ; Acute upper respiratory infection, unspecified J06.9 ; Fibromyalgia M79.7 ; Anxiety F41.9 ; Headache, unspecified R51.9 and Dizzy R42 ASSESSMENTS Encounter Date Diagnosis Assessment Notes Treatment Notes Treatment Clinical Notes Section Notes 11/22/2024 Shortness of breath (ICD-10 - R06.02) Irina is a pleasant 74-year-old female with past medical history of GERD, essential hypertension, fibromyalgia, hyperlipidemia, anxiety, insomnia, overweight, migraines and exertional dyspnea who presents to the office today for headaches and intermittent dizziness along with nausea. #Upper respiratory infection: Viral swab negative. # L ear effusion. Abx did not help. Will do short course of prednisone. May require ENT/myringotomy #Nausea: Continued. Check CBC, CMP, Amylase/lipase, TSH #Anxiety: Continue venlafaxine HCl ER 37.5 mg capsules, continue lorazepam 0.5 mg as needed for anxiety. #Hyperlipidemia: Continue atorvastatin calcium 40 mg tablets. #Fibromyalgia: Patient does not admit to pain today #Insomnia: Patient does have lorazepam 0.5 mg tablets utilize as needed. #Intermittent dizziness: EKG in office today demonstrates sinus rhythm, low voltage with rightward P axis and rotation, possible pulmonary disease. Given patient's history of asthma this is reassuring. She does not have any chest pain All questions have been answered to patient's satisfaction. Patient verbalized understanding of diagnosis and treatments explained. Advised to call sooner prior to next visit it any questions/concerns arise. Case discussed with Liliane KITCHEN who reviewed the assessment and plan. Chart, medications, labs, vital signs reviewed. Dictation was accomplished with the use of [employer] Post voice recognition software, which is prone to medical misidentifications and grammatical errors. This are unintentional and the practitioner does try to identify and correct these, but some could still be present. Please do not hesitate to contact practitioner for clarification. 11/22/2024 Acute upper respiratory infection, unspecified (ICD-10 - J06.9) Irina is a pleasant 74-year-old female with past medical history of GERD, essential hypertension, fibromyalgia, hyperlipidemia, anxiety, insomnia, overweight, migraines and exertional dyspnea who presents to the office today for headaches and intermittent dizziness along with nausea. #Upper respiratory infection: Viral swab negative. # L ear effusion. Abx did not help. Will do short course of prednisone. May require ENT/myringotomy #Nausea: Continued. Check CBC, CMP, Amylase/lipase, TSH #Anxiety: Continue venlafaxine HCl ER 37.5 mg capsules, continue lorazepam 0.5 mg as needed for anxiety. #Hyperlipidemia: Continue atorvastatin calcium 40 mg tablets. #Fibromyalgia: Patient does not admit to pain today #Insomnia: Patient does have lorazepam 0.5 mg tablets utilize as needed. #Intermittent dizziness: EKG in office today demonstrates sinus rhythm, low voltage with rightward P axis and rotation, possible pulmonary disease. Given patient's history of asthma this is reassuring. She does not have any chest pain All questions have been answered to patient's satisfaction. Patient verbalized understanding of diagnosis and treatments explained. Advised to call sooner prior to next visit it any questions/concerns arise. Case discussed with Liliane KITCHEN who reviewed the assessment and plan. Chart, medications, labs, vital signs reviewed. Dictation was accomplished with the use of [employer] voice recognition software, which is prone to medical misidentifications and grammatical errors. This are unintentional and the practitioner does try to identify and correct these, but some could still be present. Please do not hesitate to contact practitioner for clarification. 11/22/2024 Fibromyalgia (ICD-10 - M79.7) Irina is a pleasant 74-year-old female with past medical history of GERD, essential hypertension, fibromyalgia, hyperlipidemia, anxiety, insomnia, overweight, migraines and exertional dyspnea who presents to the office today for headaches and intermittent dizziness along with nausea. #Upper respiratory infection: Viral swab negative. # L ear effusion. Abx did not help. Will do short course of prednisone. May require ENT/myringotomy #Nausea: Continued. Check CBC, CMP, Amylase/lipase, TSH #Anxiety: Continue venlafaxine HCl ER 37.5 mg capsules, continue lorazepam 0.5 mg as needed for anxiety. #Hyperlipidemia: Continue atorvastatin calcium 40 mg tablets. #Fibromyalgia: Patient does not admit to pain today #Insomnia: Patient does have lorazepam 0.5 mg tablets utilize as needed. #Intermittent dizziness: EKG in office today demonstrates sinus rhythm, low voltage with rightward P axis and rotation, possible pulmonary disease. Given patient's history of asthma this is reassuring. She does not have any chest pain All questions have been answered to patient's satisfaction. Patient verbalized understanding of diagnosis and treatments explained. Advised to call sooner prior to next visit it any questions/concerns arise. Case discussed with Liliane KITCHEN who reviewed the assessment and plan. Chart, medications, labs, vital signs reviewed. Dictation was accomplished with the use of [employer] voice recognition software, which is prone to medical misidentifications and grammatical errors. This are unintentional and the practitioner does try to identify and correct these, but some could still be present. Please do not hesitate to contact practitioner for clarification. 11/22/2024 Anxiety (ICD-10 - F41.9) Irina is a pleasant 74-year-old female with past medical history of GERD, essential hypertension, fibromyalgia, hyperlipidemia, anxiety, insomnia, overweight, migraines and exertional dyspnea who presents to the office today for headaches and intermittent dizziness along with nausea. #Upper respiratory infection: Viral swab negative. # L ear effusion. Abx did not help. Will do short course of prednisone. May require ENT/myringotomy #Nausea: Continued. Check CBC, CMP, Amylase/lipase, TSH #Anxiety: Continue venlafaxine HCl ER 37.5 mg capsules, continue lorazepam 0.5 mg as needed for anxiety. #Hyperlipidemia: Continue atorvastatin calcium 40 mg tablets. #Fibromyalgia: Patient does not admit to pain today #Insomnia: Patient does have lorazepam 0.5 mg tablets utilize as needed. #Intermittent dizziness: EKG in office today demonstrates sinus rhythm, low voltage with rightward P axis and rotation, possible pulmonary disease. Given patient's history of asthma this is reassuring. She does not have any chest pain All questions have been answered to patient's satisfaction. Patient verbalized understanding of diagnosis and treatments explained. Advised to call sooner prior to next visit it any questions/concerns arise. Case discussed with Liliane KITCHEN who reviewed the assessment and plan. Chart, medications, labs, vital signs reviewed. Dictation was accomplished with the use of [employer] voice recognition software, which is prone to medical misidentifications and grammatical errors. This are unintentional and the practitioner does try to identify and correct these, but some could still be present. Please do not hesitate to contact practitioner for clarification. 11/22/2024 Headache, unspecified (ICD-10 - R51.9) Irina is a pleasant 74-year-old female with past medical history of GERD, essential hypertension, fibromyalgia, hyperlipidemia, anxiety, insomnia, overweight, migraines and exertional dyspnea who presents to the office today for headaches and intermittent dizziness along with nausea. #Upper respiratory infection: Viral swab negative. # L ear effusion. Abx did not help. Will do short course of prednisone. May require ENT/myringotomy #Nausea: Continued. Check CBC, CMP, Amylase/lipase, TSH #Anxiety: Continue venlafaxine HCl ER 37.5 mg capsules, continue lorazepam 0.5 mg as needed for anxiety. #Hyperlipidemia: Continue atorvastatin calcium 40 mg tablets. #Fibromyalgia: Patient does not admit to pain today #Insomnia: Patient does have lorazepam 0.5 mg tablets utilize as needed. #Intermittent dizziness: EKG in office today demonstrates sinus rhythm, low voltage with rightward P axis and rotation, possible pulmonary disease. Given patient's history of asthma this is reassuring. She does not have any chest pain All questions have been answered to patient's satisfaction. Patient verbalized understanding of diagnosis and treatments explained. Advised to call sooner prior to next visit it any questions/concerns arise. Case discussed with Liliane KITCHEN who reviewed the assessment and plan. Chart, medications, labs, vital signs reviewed. Dictation was accomplished with the use of [employer] voice recognition software, which is prone to medical misidentifications and grammatical errors. This are unintentional and the practitioner does try to identify and correct these, but some could still be present. Please do not hesitate to contact practitioner for clarification. 11/22/2024 Dizzy (ICD-10 - R42) Irina is a pleasant 74-year-old female with past medical history of GERD, essential hypertension, fibromyalgia, hyperlipidemia, anxiety, insomnia, overweight, migraines and exertional dyspnea who presents to the office today for headaches and intermittent dizziness along with nausea. #Upper respiratory infection: Viral swab negative. # L ear effusion. Abx did not help. Will do short course of prednisone. May require ENT/myringotomy #Nausea: Continued. Check CBC, CMP, Amylase/lipase, TSH #Anxiety: Continue venlafaxine HCl ER 37.5 mg capsules, continue lorazepam 0.5 mg as needed for anxiety. #Hyperlipidemia: Continue atorvastatin calcium 40 mg tablets. #Fibromyalgia: Patient does not admit to pain today #Insomnia: Patient does have lorazepam 0.5 mg tablets utilize as needed. #Intermittent dizziness: EKG in office today demonstrates sinus rhythm, low voltage with rightward P axis and rotation, possible pulmonary disease. Given patient's history of asthma this is reassuring. She does not have any chest pain All questions have been answered to patient's satisfaction. Patient verbalized understanding of diagnosis and treatments explained. Advised to call sooner prior to next visit it any questions/concerns arise. Case discussed with Liliane KITCHEN who reviewed the assessment and plan. Chart, medications, labs, vital signs reviewed. Dictation was accomplished with the use of [employer] voice recognition software, which is prone to medical misidentifications and grammatical errors. This are unintentional and the practitioner does try to identify and correct these, but some could still be present. Please do not hesitate to contact practitioner for clarification. PLAN OF TREATMENT Medication Medication Name Sig Start Date Stop Date Notes predniSONE 10 MG 4 tab x 3 days 3 tab s x 3 days2 tabs x 3 days1 tab x 3 days Orally Once a day for 12 days 11/22/2024 LORazepam 0.5 MG 1 tab Orally Once a day for 30 days 11/22/2024 Venlafaxine HCl ER 37.5 MG 1 capsule wit h food Orally Once a day for 90 days Omeprazole Magnesium 20 MG 1 tablet 1/2 to 1 hour before morning meal Orally Once a day for 90 days PRN Pending Test Test Name Order Date MRI : Brain without Contrast 11/22/2024 ANTITHYROGLOBULIN AB 11/22/2024 LIPID PANEL, STANDARD 11/22/2024 COMPREHENSIVE METABOLIC PANEL 11/22/2024 CBC (INCLUDES DIFF/PLT) 11/22/2024 LIPASE 11/22/2024 AMYLASE 11/22/2024 VITAMIN B12 11/22/2024 Next Appt Details Provider Name:MARCIE ALBRECHT, 12/25/2024 09:45:00 AM, [address], [place], [address], Provider Name:MARCIE ALBRECHT, 02/12/2025 08:45:00 AM, [address], [place], [address], Progress Notes * IRINA BOONEDOB:1950 (74 yo F)Acc No.[id number]:11/22/2024 Progress Notes Patient:??IRINA BOONE Provider:??MARCIE ALBRECHT PA-C :1950?Age:74 Y?Sex:Fe male Date:11/22/2024 Address:[address] [place] [address], [facility] [phone] Subjective: * Chief Complaints: * ?1. Pt is here for f/u on shaky and weak legs- pt states she stopped the buspirone because urgent care stated its a side affect of that med- pt is here today with nausea, cold body/chills, shaky legs and headache every daysee task 11/20. * HPI: ?Constitutional:? Irina is a pleasant 74-year-old female with a past medical history of GERD, essential hypertension, fibromyalgia, hyperlipidemia, anxiety, insomnia, overweight, migraines, exertional dyspnea who presents to the office today for headaches, intermittent dizziness, and nausea. The patient was last week after being started on buspirone 5 mg tablets, she states that she began experiencing uncomfortable symptoms after trialing this medication and therefore has discontinued. She also stopped Venlafaxine, and reports that she has been crying more. She denies SI/HI. Reports tired of feeling in pain all the time. She has had persistentupper respiratory symptoms: Patient states that she has been experiencing upper respiratory symptoms, she has been around multiple sick contacts, experiencing headaches, sinus pressure and right-sided ear pain. Temperature noted to be in office 98.7. ?Lastly, she states she is terrfied she has a brain tumor. Her mother from a brain tumor. Patient has been having consistent headaches every day, and was requiring migraine medications, which has since improved. Over the past 8 weeks, the pain has been worsening. She also exhibits L sided ear pain. She was given Azithromycin last visit, with no improvement,. * ROS:?Constitutional: Patient denies any excessive fatigue with exercise, no weight loss, no fever and no night sweats ???Eyes: No eye discharge, no itching, no redness. ???Ear nose throat: + Right-sided ear pain, + headaches, + sinus pressure, no sore throat, postnasal drip, runny nose, Sneezing ???Cardiovascular: No chest pain, no shortness of breath, no dyspnea on exertion, no PND, no orthopnea, no irregular pulse ???Respiratory: No chronic cough, no hemoptysis, no sputum, no wheezing ???GI, no diarrhea, no constipation no blood in the stools, no pain associated with eating, no indigestion ???Genitourinary: No painful urination no hesitancy no blood in the urine ???Musculoskeletal, no limitations to walking and running, no joint deformity, no joint stiffness, no chronic back pain, no noise with joint movement ???Integumentary, no new skin rash. No new changes in skin moles ???Neurological: No history of seizures, memory loss, No language dysfunction, No inability to concentrate, no localized weakness, no sensation loss, no confusion, + headaches ???Psychiatric: No depression, no suicidal thoughts, + anxiety ???Endocrine: No polyuria no polyphagia or polydipsia, no heat intolerance no cold intolerance ???Hematological: No easy bruising or Lymph node swelling. * Medical History:??GERD witho ut esophagitis, Essential (primary) hypertension, Fibromyalgia, Hyperlipidemia, mild, Anxiety, Insomnia due to medical condition, Overweight, Migraines, Exertional dyspnea. * Surgical History:??cervical surgery , Status post cholecystectomy September 2022 at [place] . * Hospitalization/Major Diagno stic Procedure:??Denies Past Hospitalization. * Family History:??Father: dec eased.??Mother: .??2 brother(s) , 4 sister(s) . 2 son(s) . .?? mom cancer brain dad jasmin. * Social History:?Tobacco Use:??Tobacco Use/Smoking??Are you a??nonsmoker.?Tob: None ???ETOH: none ???Drug Use: None ???Retired. * Medications:??Taking Vitamin D 50 MCG (1999 UT) Tablet 1 tablet Orally Once a day , Taking Calcium 500 MG Tablet 1 tablet with meals Orally once daily , Taking Trelegy Ellipta 200-62.5-25 MCG/ACT Aerosol Powder Breath Activated 1 puff Inhalation Once a day , Taking Omeprazole Magnesium 20 MG Tablet Delayed Release 1 tablet 30 minutes before morning meal Orally NEEDED , Notes to Pharmacist: PRN, Taking Atorvastatin Calcium 40 MG Tablet Take 1 tablet by mouth once daily , Taking Celecoxib 200 MG Capsule Take 1 capsule by mouth once daily , Taking Losartan Potassium-HCTZ 100- 12.5 MG Tablet Take 1 tablet by mouth once daily , Taking Venlafaxine HCl ER 37.5 MG Capsule Extended Release 24 Hour TAKE 1 CAPSULE BY MOUTH ONCE DAILY WITH FOOD , Taking LORazepam 0.5 MG Tablet 1 tab Orally Once a day As needed anxiety, Not- Taking busPIRone HCl 5 MG Tablet 1 tablet Orally Twice a day , Discontinued Azithromycin 250 MG Tablet 2 tabs on day 1, then 1 tab daily Orally daily , Discontinued Gabapentin 100 MG Capsule 1 capsule at bedtime Orally Once a day , Medication List reviewed and reconciled with the patient * Allergies:??Bactrim. Objective: * Vitals:??HR:90/min, BP:138/7 8mm Hg, Wt:169.8lbs, BMI:32.08Index, Ht: 61 in, Oxygen sat %:96%. * Examination: ?General Examination: ?GENERAL APPEARANCE:??in no acute distress, well developed, well nourished.??HEAD:??normocephalic, atraumatic.??EYES:??pupils equal, round, reactive to light and accommodation.??EARS:??fluid in bilateral tympanic membranes, R>L.??ORAL CAVITY:??mucosa moist.??THROAT:??clear.??NECK/THYROID:??neck supple, full range of motion, no cervical lymphadenopathy.??SKIN:??no suspicious lesions, warm and dry.??HEART:??no murmurs, regular rate and rhythm, S1, S2 normal.??LUNGS:??coarse to auscultation bilaterally.??ABDOMEN:??normal, bowel sounds present, soft, mixed areas of tympany and dullness. Mild epigastric tenderness.??EXTREMITIES:??no clubbing, cyanosis, or edema.??NEUROLOGIC:??nonfocal, motor strength normal upper and lower extremities, sensory exam intact.? Assessment: * Assessment: 1.??Shortness of breath - R0 6.02 (Primary)??2.??Acute upper respiratory infection, unspecified - J06.9 (Primary)??3.??Fibromyalgia - M79.7??4.??Anxiety - F41.9??5.??Headache, unspecified - R51.9??6.??Dizzy - R42?? Irina is a pleasant 74-yea r-old female with past medical history of GERD, essential hypertension, fibromyalgia, hyperlipidemia, anxiety, insomnia, overweight, migraines and exertional dyspnea who presents to the office today for headaches and intermittent dizziness along with nausea. #Upper respiratory infection: Viral swab negative. # L ear effusion. Abx did not help. Will do short course of prednisone. May require ENT/myringotomy #Nausea: Continued. Check CBC, CMP, Amylase/lipase, TSH #Anxiety: Continue venlafaxine HCl ER 37.5 mg capsules, continue lorazepam 0.5 mg as needed for anxiety. #Hyperlipidemia: Continue atorvastatin calcium 40 mg tablets. #Fibromyalgia: Patient does not admit to pain today #Insomnia: Patient does have lorazepam 0.5 mg tablets utilize as needed. #Intermittent dizziness: EKG in office today demonstrates sinus rhythm, low voltage with rightward P axis and rotation, possible pulmonary disease. Given patient's history of asthma this is reassuring. She does not have any chest pain All questions have been answered to patient's satisfaction. Patient verbalized understanding of diagnosis and treatments explained. Advised to call sooner prior to next visit it any questions/concerns arise. Case discussed with Liliane KITCHEN who reviewed the assessment and plan. Chart, medications, labs, vital signs reviewed. Dictation was accomplished with the use of Tiny [employer] voice recognition software, which is prone to medical misidentifications and grammatical errors. This are unintentional and the practitioner does try to identify and correct these, but some could still be present. Please do not hesitate to contact practitioner for clarification. Plan: * Treatment: 2.??Others?LAB: ANTITHYROGLOBULIN AB ?LAB: LIPID PANEL, STANDARD ?LAB: COMPREHENSIVE METABOLIC PANEL ?LAB: CBC (INCLUDES DIFF/PLT) ?LAB: LIPASE ?LAB: AMYLASE ?LAB: VITAMIN B12 ?LAB: TSH+T4F+T3Free ?LAB: ANTITHYROGLOBULIN AB ?LAB: LIPID PANEL, STANDARD ?LAB: COMPREHENSIVE METABOLIC PANEL ?LAB: CBC (INCLUDES DIFF/PLT) ?LAB: LIPASE ?LAB: AMYLASE ?LAB: VITAMIN B12 ?LAB: TSH+T4F+T3Free ?LAB: ANTITHYROGLOBULIN AB ?LAB: LIPID PANEL, STANDARD ?LAB: COMPREHENSIVE METABOLIC PANEL ?LAB: CBC (INCLUDES DIFF/PLT) ?LAB: LIPASE ?LAB: AMYLASE ?LAB: VITAMIN B12 ?LAB: TSH+T4F+T3Free ?LAB: ANTITHYROGLOBULIN AB ?LAB: LIPID PANEL, STANDARD ?LAB: COMPREHENSIVE METABOLIC PANEL ?LAB: CBC (INCLUDES DIFF/PLT) ?LAB: LIPASE ?LAB: AMYLASE ?LAB: VITAMIN B12 ?LAB: TSH+T4F+T3Free ?Imaging: MRI : Brain without Contrast ?Imaging: MRI : Brain without Contrast * Procedure Codes:??0241U NFCT DS VIR RESP RNA 4 TRGT, Modifiers: QW * Images: Billing Information: * Visit Code:?? 43688 Office Visit, Est Pt., Level 4. Modifiers: 25, SA * Procedure Codes:?? 0241U NFCT DS VIR RESP RNA 4 TRGT. Modifiers: QW Care Plan Details* * Sign off status: Completed true * Provider:??MARCIE ALBRECHT PA-C Date:?? History and Physical Notes * HPI (History of Present Illness) Category Sub-Category Detail Notes Category Not es Constitutional Irina is a pleasant 74-year-old female with a past medical history of GERD, essential hypertension, fibromyalgia, hyperlipidemia, anxiety, insomnia, overweight, migraines, exertional dyspnea who presents to the office today for headaches, intermittent dizziness, and nausea. The patient was last week after being started on buspirone 5 mg tablets, she states that she began experiencing uncomfortable symptoms after trialing this medication and therefore has discontinued. She also stopped Venlafaxine, and reports that she has been crying more. She denies SI/HI. Reports tired of feeling in pain all the time. She has had persistentupper respiratory symptoms: Patient states that she has been experiencing upper respiratory symptoms, she has been around multiple sick contacts, experiencing headaches, sinus pressure and right-sided ear pain. Temperature noted to be in office 98.7. Lastly, she states she is terrfied she has a brain tumor. Her mother from a brain tumor. Patient has been having consistent headaches every day, and was requiring migraine medications, which has since improved. Over the past 8 weeks, the pain has been worsening. She also exhibits L sided ear pain. She was given Azithromycin last visit, with no improvement, Examination Category Sub-Category Detail Notes Category Not es General Examination GENERAL APPEARANCE: in no ac junior distress, well developed, well nourished HEAD: normocephalic, atrau matic EYES: pupils equal, round, reactive to light and accommodation EARS: fluid in bilateral t ympanic membranes, R>L THROAT: clear NECK/THYROID: neck supple, full ra nge of motion, no cervical lymphadenopathy HEART: no murmurs, regular rate and rhythm, S1, S2 normal LUNGS: coarse to auscultati on bilaterally ABDOMEN: normal, bowel sounds present, soft, mixed areas of tympany and dullness. Mild epigastric tenderness NEUROLOGIC: nonfocal, motor stre ngth normal upper and lower extremities, sensory exam intact SKIN: no suspicious lesion s, warm and dry EXTREMITIES: no clubbing, cyanosi s, or edema ORAL CAVITY: mucosa moist
--- OUTSIDE RECORDS SUMMARY | 2024-12-19 12:05 | XMS_ITS | Encounter Summary ---
Author Organization [facility] Address [address] [place] [address] Care Team Providers Care Interior Design Teacher Name Role Phone Nicci Stafford MD Primary Care Provider [phone] Encounter Details Date Type Department Care Team (Late st Contact Info) Description 07/25/2024 9:13 AM EDT Hospital Encounter TH HISTORIC ENCOUNTERS EASTERN CONVERSION ONLY Marita Good MD [address] [place] [phone] Social History Tobacco Use Types Packs/Day Years [...] days20 out of 30 days of headaches. 04/11 , 24 Hhrs and after botox 8 DAYS per month in average. 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
--- OUTSIDE RECORDS SUMMARY | 2024-12-19 12:05 | XMS_ITS ---
Author Organization [facility] Address [address] [facility] [place] [address] Care Team Providers Care Door Paneler Name Role Phone DORIE MUÑOZ [phone] REASON FOR VISIT covid swab Encounters Encounter Location Date Provider Diagnosis [address] [address] 11/22/2024 DORIE MUÑOZ PLAN OF TREATMENT Next Appt Details Provider Name:MARCIE ALBRECHT, 12/25/2024 09:45:00 AM, [address], [place], [address], Provider Name:MARCIE ALBRECHT, 02/12/2025 08:45:00 AM, [address], [place], [address], Progress Notes * SKYLA BOONEDOB:1950 (74 yo F)Acc No.[id number]:11/22/2024 Patient:??SKYLA BOONE :1950?Age:74 Y?Sex:Fe male Address:[place] [address] * true * Date:??
--- OUTSIDE RECORDS SUMMARY | 2024-12-19 12:05 | XMS_ITS ---
Author Name [facility] Organization Unknown History of Medication Use Medication Directions Dispensed Refills Start Date End Date Stat us sucralfate (CARAFATE) 1 g tablet TAKE 1 TABLET BY MOUTH TWICE DAILY ON AN EMPTY STOMACH active galcanezumab-gnlm (Emgality) 120 MG/ML injection Inject 2 mL (240 mg total) under the skin every 30 (thirty) days. 01/05/2024 active losartan (COZAAR) tablet 25 mg Take 1 tablet (25 mg total) by mouth daily. 03/28/2020 active Ubrogepant (Ubrelvy) 50 MG TABS Take 50 mg by mouth 2 (two) times a day as needed (headache). 01/05/2024 active Problems Problem Status Onset Date Problem Type Date of Resolution Source Chronic migraine with aura without status migrainosus, not intractable active EncounterDiagnosisAct CTT HNEMG
--- OUTSIDE RECORDS SUMMARY | 2024-12-19 12:05 | XMS_ITS | Encounter Summary ---
Author Organization [facility] Address [address] [place] [address] Care Team Providers Care Greenskeeper Head Name Role Phone Nicci Stafford MD Primary Care Provider [phone] Encounter Details Date Type Department Care Team (Late st Contact Info) Description 12/06/2024 10:00 AM EST Office Visit [facility] [address] [place] [address] Henrietta Pickard, JERMAN [address] [place] [address] [place] [address] Chronic migraine without aura without status migrainosus, not intractable (Primary Dx) Social History Tobacco Use Types Packs/Day Years [...] Sign Reading Time Taken Comments Blood Pressure 130/80 12/06/2024 9:58 AM EST Pulse 105 12/06/2024 9:58 AM EST Temperature 35.9 ??C (96.7 ??F) 12/06/2024 9:58 AM ES T Respiratory Rate - - Oxygen Saturation 98% 12/06/2024 9:58 AM EST Inhaled Oxygen Concentration - - Weight - - Height - - Body Mass Index - - documented in this encounter Progress Notes * JERMAN Jarvis - 12/06/2024 10:00 AM EST HPI: Irina Erazo is a 73 y.o. year old female referred to our center by Nicci Stafford MD for evaluation for headaches Interval history Patient returns for follow-up visit for headache/migraine. She had Botox on 10/24. Approx 2 weeks later she developed URI and PCP treated with abx and oral prednisone . PCP ordered MRI which was normal per patient. Had increased in headaches with URI but otherwise feels Botox has been effective in reducing headaches frequency. 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 Last visit history: Headaches are getting a little better but I still have bad days 1-2 times per week. Insurance denied [facility] Exam: Vitals: 12/06/24 0958 BP: 130/80 Pulse: 105 Temp: 35.9 ??C (96.7 ??F) SpO2: 98% MS: AOx3 CN: perrla,V1-3 intact to LT, face symmetric, bilateral SCM/trapezius 5/5, tongue/uvula/palate midline Motor: 5/5 in all extremities Sensation: Intact to light touch, temperature, and vibration in all extremities Reflexes: 2+ in bilateral biceps and patellae, toes downgoing bilaterally Cerebellar: FNF intact bilaterally, FFM intact bilaterally, CANDY intact bilaterally, difficulty tandem gait normal, positive romberg Imaging: MRI brain : No concerning finding mild angiopathic changes Try [facility] Has Botox appt OCCUPATIONAL HEALTH TECHNICIAN for cognitive eval Get MRI from [facility] A/P: Irina Erazo is a 74 y.o. year old female with migraine treated with Botox for prophylaxis.She has seen a greater than 50% benefit in headache frequency with migraine treatment. - continue Botox injection for headaches -[facility] sample was effective for acute migraine Patient was instructed to keep a headache calendar Counseled on avoidance of migraine triggers, particularly sleep deprivation, missed meals, dehydration, certain foods and avoiding excessive caffeine/NSAIDs. Follow up in 4 months or sooner PRN The patient and I discussed the clinical picture during today's appointment. Additional time was spent prior to the actual appointment reviewing records, lab values and imaging results and preparingdocumentation for today's visit. There was also time spent following the in person visit documenting, arranging for further diagnostic testing and follow-up appointments. The entire time spent in this process was greater than 30 minutes. The majority of the actual [id number] visit was spent counseling the patient with respect to the current neurological picture. Henrietta Pickard PA-C documented in this encounter Plan of Treatment Upcoming Encounters Date Type Department Care Team (Late st Contact Info) Description 02/06/2025 9:00 AM EDT Procedure visit [facility] [address] [place] [address] Marita Good MD [address] [place] [address] documented as of this encounter Visit Diagnoses Diagnosis Chronic migraine without aura without status migrainosus, not intractable- Primary documented in this encounter Discontinued Medications Medication Sig Discontinue Reason Start Date End Da te fluticasone-umeclidinium -vilanterol (Trelegy Ellipta) 200-62.5-25 mcg inhaler 1 puff daily. Therapy completed 12/19/2023 12/08/2024 LORazepam (ATIVAN) 2 mg tablet Take 1 tablet (2 mg total) by mouth every 6 (six) hours if needed for anxiety. Max Daily Amount: 8 mg Therapy completed 12/08/2024 losartan (COZAAR) 25 mg tablet Take 1 tablet (25 mg total) by mouth 1 (one) time each day. Therapy completed 03/28/2020 12/08/2024 documented as of this encounter Care Teams Greenskeeper Head Relationship Specialty Start Date End Date Nicci Stafford MD [address] [place] [address] PCP - General Internal Medicine 10/24/24 documented as of this encounter
--- OUTSIDE RECORDS SUMMARY | 2024-12-19 12:05 | XMS_ITS | Clinical Summary ---
Author Organization [facility] Address [address] [place] [address] Care Team Providers Care Motor Hotel Manager Name Role Phone Nicci Stafford MD Primary Care Provider [phone] Allergies Active Allergy Reactions Criticality Noted Date Comments Sulfamethoxazole-Trimethoprim Other (See Comments) 02/10/2023 Medications Medication Sig Dispensed Refills Start Date End Date Status albuterol 108 (90 Base) MCG/ACT inhaler 1 puff as needed 0 Active atorvastatin (LIPITOR) tablet 20 mg Take 1 tablet (20 mg total) by mouth daily. 0 Active celecoxib (CeleBREX) 200 MG capsule TAKE 1 CAPSULE 0 Active losartan (COZAAR) tablet 25 mg Take 1 tablet (25 mg total) by mouth daily. 0 03/28/2020 Active losartan-hydrochlorot hiazide (HYZAAR) 100-12.5 MG per tablet 1 tablet 0 Active mirtazapine (REMERON) 30 MG tablet 1 tablet at bedtime 0 12/21/2022 Active sucralfate (CARAFATE) 1 g tablet TAKE 1 TABLET BY MOUTH TWICE DAILY ON AN EMPTY STOMACH 0 Active Trelegy Ellipta 200-62.5-25 MCG/ACT inhaler 1 puff daily. 0 12/19/2023 Active Ubrogepant (Ubrelvy) 50 MG TABS Take 50 mg by mouth 2 (two) times a day as needed (headache). 10 tablet 5 06/11/2024 Active Family History Relation Name Status Comments Father Mother Social History Tobacco Use Types Packs/Day Years Used Date Smoking Tobacco: Never Smokeless Tobacco: Never Tobacco Cessation:Counseling Given: Not Answered Alcohol Use Standard Drinks/Week Comments Never 0 (1 standard drink = 0.6 oz pur e alcohol) Sex and Gender Information Value Date Recorded Sex Assigned at Female 12/21/2022 3:34 PM EDT Gender Identity Not on file Sexual Orientation Not on file Job Start Date Occupation Industry Not on file Not on file Not on file Last Filed Vital Signs Vital Sign Reading Time Taken Comments Blood Pressure 148/86 06/11/2024 2:47 PM EDT Pulse 107 06/11/2024 2:47 PM EDT Temperature 36.1 ??C (96.9 ??F) 06/11/2024 2:47 PM ED T Respiratory Rate 16 03/22/2023 11:04 AM EDT Oxygen Saturation 97% 06/11/2024 2:47 PM EDT Inhaled Oxygen Concentration - - Weight 78.1 kg (172 lb 3.2 oz) 06/11/2024 2:47 P M EDT Height 157.5 cm (5' 2 ) 06/11/2024 2:47 PM EDT Body Mass Index 31.5 06/11/2024 2:47 PM EDT Plan of Treatment Health Maintenance Due Date Last Done Comments Hepatitis C Screening 1950 Depression Screening 1961 BMI Counseling 1967 Preventative Health Evaluation 1967 Colon Cancer Screening (Colonoscopy) 1994 Shingrix-Zoster Vaccine (1 o f 2) 1999 DTap / Tdap / Td (1 - Tdap) 01/28/2001 01/27/2001 Fall Risk Assessment 2014 Osteoporosis Screening (DEXA Scan) 2014 Pneumococcal Vaccine (1 of 1 - PCV) 2014 COVID-19 Vaccine (4 - 2023-2 5 season) 2024 11/20/2021, 02/17/2021, 01/20/2021 Influenza Vaccine (#1) 2024 RSV Adult > 60+ Yrs or (1 - 1-dose 75+ series) 2024 Hepatitis B Vaccines Aged Out No long er eligible based on patient's age to complete this topic RSV Ped < 20 months Aged Out No longe r eligible based on patient's age to complete this topic Care Teams Motor Hotel Manager Relationship Specialty Start Date End Date Nicci Stafford MD [address] [place] [address] PCP - General Internal Medicine 12/21/22
--- OUTSIDE RECORDS SUMMARY | 2024-12-19 12:05 | XMS_ITS ---
Author Organization [facility] Address [address] [facility] [place] [place] [address] Care Team Providers Care Cash Teller Name Role Phone DORIE MUÑOZ Unavailable [phone] MARCIE ALBRECHT [phone] REASON FOR VISIT med concerns Encounters Encounter Location Date Provider Diagnosis [address] [address] 11/20/2024 MARCIE ALBRECHT PLAN OF TREATMENT Next Appt Details Provider Name:MARCIE ALBRECHT, 12/25/2024 09:45:00 AM, [address], [place], [address], Provider Name:MARCIE ALBRECHT, 02/12/2025 08:45:00 AM, [address], [place], [address], Progress Notes * SKYLA BOONEDOB:1950 (74 yo F)Acc No.[id number]:11/20/2024 Patient:??SKYLA BOONE :1950?Age:74 Y?Sex:Fe male Address:[place] [address] * true * Date:??
--- OUTSIDE RECORDS SUMMARY | 2024-12-19 12:05 | XMS_ITS | Clinical Summary ---
Author Organization [facility] Address [address] [place] [address] Phone Care Team Providers Care Guard Sergeant Name Role Phone Andi Stafford MD Primary Care Provider [phone] Allergies Active Allergy Reactions Criticality Noted Date Comments Baclofen 09/10/2024 Sulfamethoxazole-Trimethop rim 02/10/2023 Other Reaction(s): Other (See Comments) Medications atorvastatin (LIPITOR) 20 mg tablet Take 1 tablet (20 mg total) by mouth 1 (one) time each day. Active celecoxib (CeleBREX) 200 mg capsule TAKE 1 CAPSULE Acti ve losartan-hydroC HLOROthiazide (HYZAAR) 100-12.5 mg per tablet 1 tablet Active sucralfate (CARAFATE) 1 gram tablet TAKE 1 TABLET BY MOUTH TWICE DAILY ON AN EMPTY STOMACH Active ascorbic acid (VITAMIN C) 250 MG chewable tablet Chew 1 tablet (250 mg total). Active rimegepant (NURTEC) 75 mg dispersible tabletIndicatio ns:Chronic migraine without aura without status migrainosus, not intractable 1 po qd PRN migraine 10 tablet 5 4 Active cholecalciferol (VITAMIN D-3) 50 mcg (2,000 unit) tablet 1 tablet (2,000 Units total) 1 (one) time each day at the same time. Active calcium carbonate (OS-ARSLAN) 1,250 mg (500 mg elemental calcium) tablet 1 (one) time each day at the same time. Active gabapentin (NEURONTIN) 100 mg capsule 1 (one) time each day at the same time. 4 Active omeprazole OTC (PriLOSEC OTC) 20 mg EC tablet 1 tablet 30 minutes before morning meal Orally NEEDED for 90 days Active venlafaxine XR (EFFEXOR-XR) 37.5 mg 24 hr capsule TAKE 1 CAPSULE BY MOUTH ONCE DAILY WITH FOOD for 90 Active ipratropium-alb uteroL (DUONEB) 0.5-2.5 mg/3 mL nebulizer solution 3 mL as needed Inhalation NEEDED for 30 days 3 Active losartan (COZAAR) 25 mg tablet Take 1 tablet (25 mg total) by mouth 1 (one) time each day. 0 12/09/19 25 Discontin ued(Thera py completed ) fluticasone-ume clidinium-vilan terol (Trelegy Ellipta) 200-62.5-25 mcg inhaler 1 puff daily. 4 12/09/19 25 Discontin ued(Thera py completed ) LORazepam (ATIVAN) 2 mg tablet Take 1 tablet (2 mg total) by mouth every 6 (six) hours if needed for anxiety. Max Daily Amount: 8 mg 12/09/19 25 Discontin ued(Thera py completed ) Active Problems Problem Noted Date Diagnosed Date 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 thy 10/10/2024 Assessment & Plan (10/10/2024 10:54 AM EST): Mely describes a couple of months of significant right sided low back pain and radiation down the right leg in an L5 distribution. She takes Celebrex and has been going to physical therapy. She has had some improvement. She is neurologically intact. Her MRI of the lumbar spine from [facility] obtained on August 24, 2024 reveals multilevel degenerative changes, evidence of kyphoplasty at L1, and most significantly stenosis on the right greater than left side at L4-5 with likely compression of the descending right L5 nerve root in the lateral recess. At this point, she is improving with physical therapy and would not consider surgery and I would agree with her. We talked about other reasonable conservative modalities including acupuncture, chiropractic treatment, and a steroid injection. We agreed on leaving surgery for the last resort. She will follow-up with us in the future on an as-needed basis. 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 Esophageal reflux 10/09/2024 Encounters Date Type Department Care Team Description 12/06/2024 10:00 AM EST Office Visit [facility] [address] [facility] [address] [place] [phone] Hnerietta Pickard PA Chronic migraine without aura without status migrainosus, not intractable (Primary Dx) 10/24/2024 9:30 AM EST Procedure visit [facility] [address] [facility] [address] [place] [address] Marita Good MD Cognitive impairment (Primary Dx); Chronic migraine without aura without status migrainosus, not intractable 10/10/2024 10:30 AM EST Consult [facility] [place] [facility] [place] [address] [facility] [address] [place] [phone] Dante Allison PA 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thy (Primary Dx); Lumbar foraminal stenosis 09/28/2024 9:45 AM EST Evaluation [facility] [address] [place] [phone] 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 Phan, 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 ATTENDANT Cognitive communication disorder (Primary Dx); Cognitive impairment 09/28/2024 Plan of Care Documentation [facility] [address] [place] [phone] from Last 3 Months Immunizations Name Administration Dates Next Due Influenza Quadravalent, 0.5m l (Fluzone High-dose) 65yo and older 07/09/2021,07/07/2020 Influenza trivalent, 0.5mL ( Fluzone High-dose) 65yo and older 09/13/2024,08/11/2019,08/04/2018,2016,07/29/2015 Moderna SARS-CoV-2 COVID-19, mRNA, LNP-S, preservative free 11/20/2021,02/17/2021,01/20/2021 Pneumococcal conjugate 13 va lent (Prevnar 13, PCV13) 2mo and older 08/04/2018 Td, Unspecified 01/27/2001 Zoster Live 09/02/2022 Surgical History Surgery Date Site/Laterality Comments GALLBLADDER SURGERY PROCEDURE:GALLBLADDER SURGERY Medical History Medical History Date Comments Depression DX:Depression Anxiety DX:Anxiety Migraine DX:Migraine Sciatic nerve disease Family History Relation Name Status Comments Father [...] on file Sexual Orientation Not on file Obstetrics History Last Filed Vital Signs Vital Sign Reading Time Taken Comments Blood Pressure 130/80 12/06/2024 9:58 AM EST Pulse 105 12/06/2024 9:58 AM EST Temperature 35.9 ??C (96.7 ??F) 12/06/2024 9:58 AM ES T Respiratory Rate - - Oxygen Saturation 98% 12/06/2024 9:58 AM EST Inhaled Oxygen Concentration - - Weight 76.2 kg (168 lb) 10/10/2024 10:13 AM EST Height 160 cm (5' 3 ) 10/10/2024 10:13 AM EST Body Mass Index 29.76 10/10/2024 10:13 AM EST Plan of Treatment Upcoming Encounters Date Type Department Care Team (Late st Contact Info) Description 02/06/2025 9:00 AM EDT Procedure visit [facility] [address] [facility] [address] [place] [address] Marita Good MD [address] [facility] [address] [place] [address] Health Maintenance Due Date Last Done Comments DTaP,Tdap,and Td Vaccines (2 - Td or Tdap) 01/27/2011 01/27/2001 Pneumococcal Vaccine: 50+ Years (2 of 2 - PPSV23) 08/04/2019 08/04/2018 Cholesterol Screening (Lipid Panel) 09/01/2022 Colorectal Cancer Screening: Colonoscopy 09/01/2022 Depression Screening 09/01/2022 Falls Risk Assessment 09/01/2022 Hepatitis C Screening 09/01/2022 Medicare Annual Wellness Visit 09/01/2022 Social Influencers of Health Screening 09/01/2022 Zoster Vaccines (2 of 3) 10/28/2022 09/02/2022 COVID-19 Vaccine ( season) 2024 11/20/2021, 02/17/2021, 01/20/2021 RSV Immunization Patients 60+ Years Old (1 - 1-dose 75+ series) 2024 Hypertension/CHF/CAD Annual BMP Blood Test 09/28/2024 Osteoporosis Screening (Bone Density Screening) 11/23/2031 11/23/2021, 07/30/2019 Breast Cancer Screening Discontinued 11/26/19 23, 11/23/2021, 11/20/2020, Additional history exists Influenza Vaccine Completed 09/13/2024, , 07/07/2020, Additional history exists HIB Vaccines Aged Out No longer eligi ble based on patient's age to complete this topic HPV Vaccines Aged Out No longer eligi ble based on patient's age to complete this topic Hepatitis A Vaccines Aged Out No long er eligible based on patient's age to complete this topic Hepatitis B Vaccines Aged Out No long er eligible based on patient's age to complete this topic IPV Vaccines Aged Out No longer eligi ble based on patient's age to complete this topic MMR Vaccines Aged Out No longer eligi ble based on patient's age to complete this topic Meningococcal ACWY Vaccine Aged Out N o longer eligible based on patient's age to complete this topic Meningococcal B Vacine Aged Out No lo nger eligible based on patient's age to complete this topic RSV Immunization Patients Under 20 months Aged Out No longer eligible based on patient's age to complete this topic Varicella Vaccines Aged Out No longer eligible based on patient's age to complete this topic Procedures Procedure Name Priority Date/Time Associated Diagnosis Comments [facility] SCREENING DIGITAL Routine 11/26/2022 8:02 AM EST Encounter for screening mammogram for malignant neoplasm of breast [facility] DEXA AXIAL SKELETON Routine 11/23/2021 9:28 AM EST Encounter for screening for osteoporosis from Last 3 Months or Most Recently Relevant to Health Maintenance Results * [facility] SCREENING DIGITAL (11/26/2022 8:02 AM EST) Anatomical Region Laterality Modality Mammography 11/25/2022 2:17 PM EST Narrative 11/26/2022 8:02 AM EST [facility] Diagnostic Imaging Department [address] [place], [place] [id number] Patient: ??IRINA ERAZO ?/Age/Sex: 1950 - 72 - F Unit#: ??[id number] ? Location/Status: ??SPDIMAM/REG CLI ? Mnemonic/Ordering Site: [facility] Ordering Physician: ??ANDI STAFFORD MD Taina Screening Digital - 11/25/221517 HISTORY: The patient is a 72-year-old female presenting for routine screening mammography. ??The patient has a family history of breast cancer involving a sister at age 68, as well as a niece, age not specified. FINDINGS: ??CC and MLO views of both breasts were obtained using full field digital mammography in the HereOrThereographe 2000-D unit. Computer aided detection with the iCAD Second Look 7.2-H was employed. In addition, breast tomosynthesis in MLO projection was performed. The breasts are again seen to be composed of a combination of fatty and fibroglandular elements (scattered areas of fibroglandular density, category B density, as calculated by MoveInSynca software), as also demonstrated on prior studies most recently 11/23/2021 and most remotely 06/26/2016. ??A few scattered benign calcifications are again seen in the right breast. ??There is no suspicious cluster of microcalcifications, mass, or area of architectural distortion. There is no skin thickening or nipple retraction. IMPRESSION: No mammographic evidence of malignancy. A negative mammogram in the presence of a clinically suspicious palpable abnormality does not preclude the possibility of malignancy or alter the indications for biopsy. BIRADS Code Class 2: ??Benign Finding PQRI CPT II 3342F Code 47210, 07748 PQRI 225 CPT II 7025F Dictating Physician: ??RUPALI HARMON MD Electronically Signed by: ??RUPALI HARMON MD Dic Date/Time: ??11/26/22 0758 Sign date/Time: ??11/26/22 0802 Procedure Note Rupali Harmon MD - 11/04/2023 [facility] Diagnostic Imaging Department [address] [place] [address] Patient: IRINA ERAZO /Age/Sex: 1950 - 72 - F Unit#: [id number] Location/Status: [facility]/REG CLI Mnemonic[facility]Ordering Site[facility] Ordering Physician: ANDI STAFFORD MD Taina Screening Digital - 11/25/22 - 1518 HISTORY: The patient is a 72-year-old female presenting for routinescreening mammography. The patient has a family history of breast cancer involvinga sister at age 68, as well as a niece, age not specified. FINDINGS: CC and MLO views of both breasts were obtained using fullfield digital mammography in the HereOrThereographe 2000-D unit. Computer aideddetection with the iCAD Second Look 7.2-H was employed. In addition, breasttomosynthesis in MLO projection was performed. The breasts are again seen to be composed of a combination of fatty and fibroglandular elements (scattered areas of fibroglandular density,category B density, as calculated by Shunra Softwarepara software), as also demonstratedon prior studies most recently 11/23/2021 and most remotely 06/26/2016. Afew scattered benign calcifications are again seen in the right breast. Thereis no suspicious cluster of microcalcifications, mass, or area ofarchitectural distortion. There is no skin thickening or nipple retraction. IMPRESSION: No mammographic evidence of malignancy. A negative mammogram in the presence of a clinically suspicious palpable abnormality does not preclude the possibility of malignancy or alter the indications for biopsy. BIRADS Code Class 2: Benign Finding PQRI CPT II 3342F Code 18381, 51538 PQRI 225 CPT II 7025F Dictating Physician: RUPALI HARMON MD Electronically Signed by: RUPALI HARMON MD Dic Date/Time: 11/26/22 0758 Sign date/Time: 11/26/22 0802 Andi Stafford MD IMG BI PROCEDURES Final Result * [facility] DEXA AXIAL SKELETON (11/23/2021 9:28 AM EST) Anatomical Region Laterality Modality Mammography 11/23/2021 8:58 AM EST Narrative 11/23/2021 9:28 AM EST [facility] Diagnostic Imaging Department [address] [place] [address] Patient: ??OBED ERAZOIMPIA Rhonda ?/Age/Sex: 1950 - 71 - F Unit#: ??[id number] ? Location/Status: ??SPDIMAM/REG CLI ? Mnemonic/Ordering Site: ??[facility] Ordering Physician: ??ACE DUENAS MD Taina Dexa Axial Skeleton - 11/23/21924 HISTORY: ??The patient is a 71-year-old postmenopausal female with clinical concern for metabolic bone disease. FINDINGS: ??Dual energy x-ray absorptiometry of the lumbar spine and femurs is performed. The mean bone mineral density at L2-4 is 1.037 gm/cm2 which is 86% of that of young normals and 99% of that of age matched controls. This yields a T- score of -1.4 and a Z-score of -0.1 which is diagnostic of osteopenia. The mean bone mineral density of the femurs bilaterally is 0.934 gm/cm2 which is 93% of that of young normals and 111% of that of age matched controls. ??This yields a T-score of -0.6 and a Z-score of 0.7 and there is therefore no evidence of osteoporosis or osteopenia here. ??However, the T-score of the right femoral neck is -1.6 and that of the left femoral neck is -1.5 which is diagnostic of osteopenia. IMPRESSION: 1. Osteopenia. ??There has been an increase of 4.9% in bone mineral density in the lumbar spine since the prior examination of 07/30/2019. ??There has been an increase of 1.6% in bone mineral density in the right femur and an increase of 0.2% in bone mineral density in the left femur. 2. FRAX analysis yields a 10-year probability of major osteoporotic fracture of 31.4% and a 10-year probability of hip fracture of 6.9%. Code 97144 Dictating Physician: ??RUPALI HARMON MD Electronically Signed by: ??RUPALI HARMON MD Dic Date/Time: ??11/23/21926 Sign date/Time: ??11/23/21927 Procedure Note Rupali Harmon MD - 09/22/2022 [facility] Diagnostic Imaging Department [address] [place] [address] Patient: MELYIRINA /Age/Sex: 1950 - 71 - F Unit#: [id number] Location/Status: [facility] Mnemonic/Ordering Site: [facility] Ordering Physician: ACE DUENAS MD [facility] Dexa Axial Skeleton - 11/23/21924 HISTORY: The patient is a 71-year-old postmenopausal female withclinical concern for metabolic bone disease. FINDINGS: Dual energy x-ray absorptiometry of the lumbar spine and femursis performed. The mean bone mineral density at L2-4 is 1.037 gm/cm2 which is86% of that of young normals and 99% of that of age matched controls. This yieldsa T- score of -1.4 and a Z-score of -0.1 which is diagnostic of osteopenia. The mean bone mineral density of the femurs bilaterally is 0.934 gm/gq5xdmpv is 93% of that of young normals and 111% of that of age matched controls.This yields a T-score of -0.6 and a Z-score of 0.7 and there is therefore noevidence of osteoporosis or osteopenia here. However, the T-score of the rightfemoral neck is -1.6 and that of the left femoral neck is -1.5 which is diagnosticof osteopenia. IMPRESSION: 1. Osteopenia. There has been an increase of 4.9% in bone mineral densityin the lumbar spine since the prior examination of 07/30/2019. There hasbeen an increase of 1.6% in bone mineral density in the right femur and anincrease of 0.2% in bone mineral density in the left femur. 2. FRAX analysis yields a 10-year probability of major osteoporoticfracture of 31.4% and a 10-year probability of hip fracture of 6.9%. Code 27269 Dictating Physician: RUPALI HARMON MD Electronically Signed by: RUPALI HARMON MD Dic Date/Time: 11/23/21926 Sign date/Time: 11/23/21927 Ace Duenas MD IMG BI PROCEDURES Final Result from Last 3 Months or Most Recently Relevant to Health Maintenance Insurance [employer] - [place] MEDICARE ADVANTAGE Care Teams Guard Sergeant Relationship Specialty Start Date End Date Andi Stafford MD [address] [place] [id number] PCP - General Internal Medicine 10/24/24
== END 2024-12-19 10:50 | disposition home or self-care (01) ==
LOC: HO.HPS 10:20
PROVIDERS: PCP Internal Medicine; Visit Provider Internal Medicine Pulmonary Disease
DX: J45.909 Unspecified asthma, uncomplicated (principal); R09.02 Hypoxemia; Z91.09 Other allergy status, other than to drugs and biological substances
CPT/HCPCS: 99214; G2211

== ENCOUNTER → 2024-12-19 10:19 | Outpatient (BNVA) | payer MEDICARE, SELFPAY | PROVIDERS: PCP Internal Medicine; Visit Provider Internal Medicine Pulmonary Disease | DX: J45.909 Unspecified asthma, uncomplicated (principal); R09.02 Hypoxemia; Z91.09 Other allergy status, other than to drugs and biological substances | CPT/HCPCS: 99212 ==

== ENCOUNTER 2025-02-12 14:51 | Outpatient (REF) | payer MEDICARE, SELFPAY ==
--- OUTSIDE RECORDS SUMMARY | 2025-02-12 15:55 | XMS_ITS | Clinical Summary ---
Author Organization [facility] Address [address] [place] [address] Care Team Providers Care Wash Rack Operator Name Role Phone Unavailable Primary Care Provider Unavailabl e Source Comments PLEASE NOTE, if this patient is a minor, it may be UNLAWFUL to discuss sensitive information that is contained in these records (such as FAMILY PLANNING, MENTAL HEALTH or SUBSTANCE ABUSE) with the minor patient's parent or other person without the patient's specific authorization.[facility] Immunizations Immunization Administration Dates Next Due Moderna COVID-19 Vaccine, [...] (2 of 2 - PPSV23) 08/04/2019 08/04/2018 [id number]-[id number]-23 ( season) 2024 11/20/2021, 02/17/2021, 01/20/2021 Imm-Influenza (#1) 2024 07/09/2021, 1 , 08/11/2019, Additional history exists Alcohol and Drug Screen 10/03/2024 Depression Annual Screen 10/03/2024 Insurance [employer] Member Subscriber Plan / Payer (Ef fective 2021-Present) Name:Irina Erazo Relation to Subscriber:Self Name:Irina Erazo Payer ID:[id number] Group ID:Not on file Type:Indemnity Address: [address] [place] [address]
--- OUTSIDE RECORDS SUMMARY | 2025-02-12 15:55 | XMS_ITS | Clinical Summary ---
Author Organization [address] [facility] Address [address] [place] [address] Phone Care Team Providers Care Pathology Secretary/Transcriptionist Name Role Phone Andi Stafford MD Primary Care Provider [phone] Allergies Active Allergy Reactions Criticality Noted Date Comments Baclofen 09/10/2024 Sulfamethoxazole-Trimethop rim 02/10/2023 Other Reaction(s): Other (See Comments) Medications atorvastatin (LIPITOR) 20 mg tablet Take 1 tablet (20 mg total) by mouth 1 (one) time each day. Active celecoxib (CeleBREX) 200 mg capsule TAKE 1 CAPSULE Acti ve losartan-hydroCH LOROthiazide (HYZAAR) 100-12.5 mg per tablet 1 tablet Active sucralfate (CARAFATE) 1 gram tablet TAKE 1 TABLET BY MOUTH TWICE DAILY ON AN EMPTY STOMACH Active ascorbic acid (VITAMIN C) 250 MG chewable tablet Chew 1 tablet (250 mg total). Active rimegepant (NURTEC) 75 mg dispersible tabletIndication s:Chronic migraine without aura without status migrainosus, not [...] ONCE DAILY WITH FOOD for 90 Active ipratropium-albu teroL (DUONEB) 0.5-2.5 mg/3 mL nebulizer solution 3 mL as needed Inhalation NEEDED for 30 days 3 Active Hospital, Clinic, or Other Facility Administered Medication Ordered Dose Route Frequency Start Date End Date Status onabotulinumtoxinA (BOTOX) 200 unit injection 200 UnitsIndications:Chronic migraine without aura without status migrainosus, not intractable 200 Units IM Once 02/06/2025 02/06/2025 Ended Active Problems Problem Noted Date Diagnosed Date 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 thy 10/10/2024 Assessment & Plan (10/10/2024 10:54 AM EST): Castro describes a couple of months of significant [...] Encounters Date Type Department Care Team Description 02/06/2025 9:00 AM EDT Procedure visit [address] [place] [address] Marita Good MD Chronic migraine without aura without status migrainosus, not intractable (Primary Dx) 12/06/2024 10:00 AM EST Office Visit [facility] [address] [place] [address] Henrietta Pickard PA Chronic migraine without aura without status migrainosus, not intractable (Primary Dx) from Last 3 Months Immunizations Name Administration [...] Care Team (Late st Contact Info) Description 05/01/2025 8:40 AM EDT Procedure visit [facility] [address] [place] [address] Marita Good MD [address] [place] [address] Health Maintenance Due Date Last [...] season) 2024 11/20/2021, 02/17/2021, 01/20/2021 RSV Immunization Adult Patients (1 - 1-dose 75+ series) 2024 Hypertension/CHF/CAD [...] age to complete this topic Meningococcal B Vaccine Aged Out No l onger eligible based on patient's age to complete this topic RSV Immunization Patients Under 20 months Aged Out No longer eligible based on patient's age to complete this topic Varicella Vaccines Aged Out No longer eligible based on patient's age to complete this topic Procedures Procedure Name Priority Date/Time Associated Diagnosis Comments [facility] SCREENING DIGITAL Routine 11/26/2022 8:02 AM EST Encounter for screening mammogram for malignant neoplasm of breast [facility] DEXA AXIAL SKELETON Routine 11/23/2021 9:28 AM EST Encounter for screening for osteoporosis from Last 3 Months or Most Recently Relevant to Health Maintenance Results * [facility] SCREENING DIGITAL (11/26/2022 8:02 AM EST) Anatomical Region Laterality Modality Mammography 11/25/2022 2:17 PM EST Narrative 11/26/2022 8:[address] [facility] Diagnostic Imaging Department [address] [place] [address] [id number] Patient: ??IRINA ERAZO ?/Age/Sex: 1950 - 72 - F Unit#: ??[id number] ? Location/Status: ??SPDIMAM/REG CLI ? Mnemonic/Ordering Site: ??DIGSC/SPF Ordering Physician: ??ANDI STAFFORD MD [facility] Screening Digital - 11/25/22 - 8 HISTORY: The patient is a 72-year-old female presenting for routine screening mammography. ??The patient has a family history of breast cancer involving a sister at age 68, as well as a niece, age not specified. FINDINGS: ??CC and MLO views of both breasts were obtained using full field digital mammography in the O-filmographe 2000-D unit. Computer aided detection with the [employer] Second Look 7.2-H was employed. In addition, breast tomosynthesis in MLO projection was performed. The breasts are again seen to be composed of a combination of fatty and fibroglandular elements (scattered areas of fibroglandular density, category B density, as calculated by FastConnectpara software), as also demonstrated on prior studies [...] ??Benign Finding PQRI CPT II 3342F Code 33453, 64668 PQRI 225 CPT II 7025F Dictating Physician: ??RUPALI HARMON MD Electronically Signed by: ??RUPALI HARMON MD Dic Date/Time: ??11/26/22 0758 Sign date/Time: ??11/26/22 0802 Procedure Note Rupali Harmon MD - 11/04/2023 [facility] Diagnostic Imaging Department [address] [place] [id number] Patient: IRINA ERAZO Rhonda /Age/Sex: 1950 - 72 - F Unit#: [id number] Location/Status: SPDIMA/REG CLI Mnemonic/Ordering Site: [facility] Ordering Physician: ANDI STAFFORD MD [facility] Screening Digital - 11/25/22 - 4977 HISTORY: The patient is a 72-year-old female presenting for routinescreening mammography. The patient has a family history of breast cancer involvinga sister at age 68, as well as a niece, age not specified. FINDINGS: CC and MLO views of both breasts were obtained using fullfield digital mammography in the O-filmographe 2000-D unit. Computer aideddetection with the i[employer] Second Look 7.2-H was employed. In addition, breasttomosynthesis in MLO projection was performed. The breasts are again seen to be composed of a combination of fatty and fibroglandular elements (scattered areas of fibroglandular density,category B density, as calculated by FastConnectpara software), as also demonstratedon prior studies most [...] Benign Finding PQRI CPT II 3342F Code 08429, 97465 PQRI 225 CPT II 7025F Dictating Physician: RUPALI HARMON MD Electronically Signed by: RUPALI HARMON MD Dic Date/Time: 11/26/22 0758 Sign date/Time: 11/26/22 0802 Andi Stafford MD IMG BI PROCEDURES Final Result * [facility] DEXA AXIAL SKELETON (11/23/2021 9:28 AM EST) Anatomical Region Laterality Modality Mammography 11/23/2021 8:58 AM EST Narrative 11/23/2021 9:[address] [facility] Diagnostic Imaging Department [address] [place], [place] [id number] Patient: ??IRINA ERAZO ?/Age/Sex: 1950 - 71 - F Unit#: ??[id number] ? Location/Status: ??SPDIMAM/REG CLI ? Mnemonic/Ordering Site: [...] probability of hip fracture of 6.9%. Code 56067 Dictating Physician: ??RUPALI HARMON MD Electronically Signed by: ??RUPALI HARMON MD Dic Date/Time: ??11/23/21926 Sign date/Time: ??11/23/21927 Procedure Note Rupali Harmon MD - 09/22/2022 [facility] Diagnostic Imaging Department [address] [place] [address] Patient: IRINA ERAZO./Age/Sex: 1950 - 71 - F Unit#: [id number] Location/Status: SPDIMAM/REG CLI [facility] Ordering Physician: ACE DUENAS MD [facility] Dexa Axial Skeleton - 11/23/21924 HISTORY: The [...] density of the femurs bilaterally is 0.934 gm/kr0ukpei is 93% of that of young normals [...] probability of hip fracture of 6.9%. Code 27236 Dictating Physician: RUPALI HARMON MD Electronically Signed by: RUPALI HARMON MD [facility] Date/Time: 11/23/21926 Sign date/Time: 11/23/21927 Ace Duenas MD IMG BI PROCEDURES Final Result from Last 3 Months or Most Recently Relevant to Health Maintenance Insurance [employer] - [place] MEDICARE ADVANTAGE Care Teams Pathology Secretary/Transcriptionist Relationship Specialty Start Date End Date Andi Stafford MD [address] [place] [phone] PCP - General Internal Medicine 10/24/24
--- OUTSIDE RECORDS SUMMARY | 2025-02-12 15:55 | XMS_ITS ---
Author Organization [facility] Address [address] [place] [address] Care Team Providers Care Parking Enforcement Manager Name Role Phone DORIE WRIGHT Unavailable [phone] REASON FOR VISIT covid swab Encounters Encounter Location Date Provider Diagnosis [address] [address] 11/22/2024 DORIE WRIGHT PLAN OF TREATMENT Next Appt Details Provider Name:MARCIE ALBRECHT, 03/12/2025 08:45:00 AM, [address], [place], [address], Progress Notes * SKYLA BOONEDOB:1950 (74 yo F)Acc No.[id number]:11/22/2024 Patient:??SKYLA BOONE :1950?Age:74 Y?Sex:Fe male Address:[place] [address] * true * Date:??
--- OUTSIDE RECORDS SUMMARY | 2025-02-12 15:55 | XMS_ITS ---
Author Organization [facility] Address [address] [place] [address] Care Team Providers Care Rouge Sifter Name Role Phone DORIE WRIGHT Unavailable [phone] AMBROCIO MARCIE Unavailable [phone] ALLERGIES Allergen (clinical drug ingredient) Drug/Non Drug Allergy documented on EMR Reaction Allergy Type Onset Date Status sulfamethoxazole / trimethoprim Bactrim Unknown Drug Allergy Active REASON FOR VISIT pt is here for f/u-no labs or imaging done.... pt states the medication she gave for depression is causing her to be drowsy wondering if you could decrease a little MEDICATIONS Medication SIG (Take, Route, Frequency, Duration) Notes Start Date End Date Status Albuterol Sulfate (2.5 MG/3ML) 0.083% 3 mL as needed Inhalation every 6 hrs for 30 days 12/25/2024 Active Losartan Potassium-HCTZ 100-12.5 MG Take 1 tablet by mouth once daily for 90 Active Atorvastatin Calcium 40 MG Take 1 tablet by mouth once daily for 90 Active Omeprazole Magnesium 20 MG 1 tablet 1/2 to 1 hour before morning meal Orally Once a day for 90 days PRN Active Venlafaxine HCl ER 37.5 MG 1 capsule wit h food Orally Once a day for 90 days Active Calcium 500 MG 1 tablet with meals Orally once daily Active Vitamin D 50 MCG (1999) 1 tablet Oral ly Once a day Active Trelegy Ellipta 200-62.5-25 MCG/ACT 1 puff Inhalation Once a day Active LORazepam 0.5 MG 1 tab Orally Once a day for 30 days 12/25/2024 Active Celecoxib 200 MG Take 1 capsule by anyi ross once daily for 90 Active SOCIAL HISTORY Tobacco Use: Social History Observation Description Date Details (start date - stop date) Never Smoker NA - NA Sex Assigned At : Social History Observation Description Sex Assigned At Unknown Tobacco Use/Smoking Question Answer Notes Are you a nonsmoker Section Notes: Tob: None ETOH: none Drug Use: None Retired. VITAL SIGNS Blood pressure systolic 136 mm Hg 12/26/19 25 Blood pressure diastolic 80 mm Hg 025 Heart Rate 93 /min 12/25/2024 Height 61 in 12/25/2024 Weight 165.0 lbs 12/25/2024 BMI 31.17 kg/m2 12/25/2024 Oximetry 96 % 12/25/2024 Encounters Encounter Location Date Provider Diagnosis [facility] [address] [place] [address] 12/25/2024 MARCIE ALBRECHT Primary hypertension I10 ; Insomnia due to medical condition G47.01 ; Asthma J45.909 and Fibromyalgia M79.7 ASSESSMENTS Encounter Date Diagnosis Assessment Notes Treatment Notes Treatment Clinical Notes Section Notes 12/25/2024 Primary hypertension (ICD-10 - I10) #Chronic Exertional Dyspnea : Sees senior education specialist and was prescribed Trelegy Ellipta for her dyspnea. She reports some relief of her congestion symptoms from the nasal solution prescribed by the senior education specialist. Continued use of Trelegy Ellipta should be monitored for effectiveness, and further follow-up with pulmonology is recommended if symptoms persist or worsen. #Migraines :Persistent migraines, described as tension-type headaches with a band-like pressure around her head extending to the back. The Botox injections have provided significant relief, suggesting the benefit of continued treatment. No new triggers reported, but ongoing monitoring of headache frequency and intensity is noted. Has tried oral CRGP and injetable #Insomnia :Taking lorazepam daily for sleep, which has been effective. Refills have been made. #Anxiety:Improved mood with reduced symptoms of anxiety and depression, likely due to venlafaxine therapy. She does not report significant anxiety-related symptoms at this time, but continued monitoring is recommended, particularly in light of her ongoing insomnia and medication use. #Fibromyalgia No specific fibromyalgia symptoms have been reported during this visit. The patient's symptoms of fatigue, which may overlap with fibromyalgia, are likely related to venlafaxine. Further evaluation may be needed if fibromyalgia symptoms emerge or persist. # Chronic serous OM: Ongoing issue. Tried Flonase, and prednisone w/o relief. Continued fluid behind the TM. Refer to ENT. May need myringotomy tubes Case discussed with collaborating physician Merlin Stafford who reviewed the assessment and plan. Chart, medications, labs, vital signs reviewed. Dictation was accomplished with the use of Spime voice recognition software, prone to medical misidentifications and grammatical errors. This is unintentional and the practitioner does try to identify and correct these, but some could still be present. Please do not hesitate to contact practitioner for clarification. All questions answered to patients satisfaction. Patient verbalized understanding of diagnosis and treatments explained. To call sooner prior to next visit it any questions/concerns arise. 12/25/2024 Insomnia due to medical condition (ICD-10 - G47.01) #Chronic Exertional Dyspnea : Sees senior education specialist and was prescribed Trelegy Ellipta for her dyspnea. She reports some relief of her congestion symptoms from the nasal solution prescribed by the senior education specialist. Continued use of Trelegy Ellipta should be monitored for effectiveness, and further follow-up with pulmonology is recommended if symptoms persist or worsen. #Migraines :Persistent migraines, described as tension-type headaches with a band-like pressure around her head extending to the back. The Botox injections have provided significant relief, suggesting the benefit of continued treatment. No new triggers reported, but ongoing monitoring of headache frequency and intensity is noted. Has tried oral CRGP and injetable #Insomnia :Taking lorazepam daily for sleep, which has been effective. Refills have been made. #Anxiety:Improved mood with reduced symptoms of anxiety and depression, likely due to venlafaxine therapy. She does not report significant anxiety-related symptoms at this time, but continued monitoring is recommended, particularly in light of her ongoing insomnia and medication use. #Fibromyalgia No specific fibromyalgia symptoms have been reported during this visit. The patient's symptoms of fatigue, which may overlap with fibromyalgia, are likely related to venlafaxine. Further evaluation may be needed if fibromyalgia symptoms emerge or persist. # Chronic serous OM: Ongoing issue. Tried Flonase, and prednisone w/o relief. Continued fluid behind the TM. Refer to ENT. May need myringotomy tubes Case discussed with collaborating physician Merlin Stafford who reviewed the assessment and plan. Chart, medications, labs, vital signs reviewed. Dictation was accomplished with the use of Spime voice recognition software, prone to medical misidentifications and grammatical errors. This is unintentional and the practitioner does try to identify and correct these, but some could still be present. Please do not hesitate to contact practitioner for clarification. All questions answered to patients satisfaction. Patient verbalized understanding of diagnosis and treatments explained. To call sooner prior to next visit it any questions/concerns arise. 12/25/2024 Asthma (ICD-10 - J45.909) #Chronic Exertional Dyspnea : Sees senior education specialist and was prescribed Trelegy Ellipta for her dyspnea. She reports some relief of her congestion symptoms from the nasal solution prescribed by the senior education specialist. Continued use of Trelegy Ellipta should be monitored for effectiveness, and further follow-up with pulmonology is recommended if symptoms persist or worsen. #Migraines :Persistent migraines, described as tension-type headaches with a band-like pressure around her head extending to the back. The Botox injections have provided significant relief, suggesting the benefit of continued treatment. No new triggers reported, but ongoing monitoring of headache frequency and intensity is noted. Has tried oral CRGP and injetable #Insomnia :Taking lorazepam daily for sleep, which has been effective. Refills have been made. #Anxiety:Improved mood with reduced symptoms of anxiety and depression, likely due to venlafaxine therapy. She does not report significant anxiety-related symptoms at this time, but continued monitoring is recommended, particularly in light of her ongoing insomnia and medication use. #Fibromyalgia No specific fibromyalgia symptoms have been reported during this visit. The patient's symptoms of fatigue, which may overlap with fibromyalgia, are likely related to venlafaxine. Further evaluation may be needed if fibromyalgia symptoms emerge or persist. # Chronic serous OM: Ongoing issue. Tried Flonase, and prednisone w/o relief. Continued fluid behind the TM. Refer to ENT. May need myringotomy tubes Case discussed with collaborating physician Merlin Stafford who reviewed the assessment and plan. Chart, medications, labs, vital signs reviewed. Dictation was accomplished with the use of Spime voice recognition software, prone to medical misidentifications and grammatical errors. This is unintentional and the practitioner does try to identify and correct these, but some could still be present. Please do not hesitate to contact practitioner for clarification. All questions answered to patients satisfaction. Patient verbalized understanding of diagnosis and treatments explained. To call sooner prior to next visit it any questions/concerns arise. 12/25/2024 Fibromyalgia (ICD-10 - M79.7) #Chronic Exertional Dyspnea : Sees senior education specialist and was prescribed Trelegy Ellipta for her dyspnea. She reports some relief of her congestion symptoms from the nasal solution prescribed by the senior education specialist. Continued use of Trelegy Ellipta should be monitored for effectiveness, and further follow-up with pulmonology is recommended if symptoms persist or worsen. #Migraines :Persistent migraines, described as tension-type headaches with a band-like pressure around her head extending to the back. The Botox injections have provided significant relief, suggesting the benefit of continued treatment. No new triggers reported, but ongoing monitoring of headache frequency and intensity is noted. Has tried oral CRGP and injetable #Insomnia :Taking lorazepam daily for sleep, which has been effective. Refills have been made. #Anxiety:Improved mood with reduced symptoms of anxiety and depression, likely due to venlafaxine therapy. She does not report significant anxiety-related symptoms at this time, but continued monitoring is recommended, particularly in light of her ongoing insomnia and medication use. #Fibromyalgia No specific fibromyalgia symptoms have been reported during this visit. The patient's symptoms of fatigue, which may overlap with fibromyalgia, are likely related to venlafaxine. Further evaluation may be needed if fibromyalgia symptoms emerge or persist. # Chronic serous OM: Ongoing issue. Tried Flonase, and prednisone w/o relief. Continued fluid behind the TM. Refer to ENT. May need myringotomy tubes Case discussed with collaborating physician Merlin Stafford who reviewed the assessment and plan. Chart, medications, labs, vital signs reviewed. Dictation was accomplished with the use of Spime voice recognition software, prone to medical misidentifications and grammatical errors. This is unintentional and the practitioner does try to identify and correct these, but some could still be present. Please do not hesitate to contact practitioner for clarification. All questions answered to patients satisfaction. Patient verbalized understanding of diagnosis and treatments explained. To call sooner prior to next visit it any questions/concerns arise. PLAN OF TREATMENT Medication Medication Name Sig Start Date Stop Date Notes Albuterol Sulfate (2.5 MG/3ML) 0.083% 3 mL as needed Inhalation every 6 hrs for 30 days 12/25/2024 LORazepam 0.5 MG 1 tab Orally Once a day for 30 days 12/25/2024 Next Appt Details Provider Name:MARCIE ALBRECHT, 03/12/2025 08:45:00 AM, [address], [place], [address], Progress Notes * IRINA BOONEDOB:1950 (74 yo F)Acc No.[id number]:12/25/2024 Progress Notes Patient:??IRINA BOONE Provider:??MARCIE ALBRECHT PA-C :1950?Age:74 Y?Sex:Fe male Date:12/25/2024 Address:[address] [place], [place] [id number] Subjective: * Chief Complaints: * ?1. Pt is here for f/u- no labs or imaging done.... pt states the medication she gave for depression is causing her to be drowsy wondering if you could decrease a little. * HPI: ?Constitutional:? Irina is a 74 year old female with PMH of GERD, essential (primary) hypertension, fibromyalgia, anxiety, insomnia, migraines, overweight, hyperlipidemia, and exertional dyspnea presents for a follow up visit. The patient received Botox injections on February 06, which have been significantly helping alleviate her persistent migraines. She describes the headaches as tension-type, starting as a band around her head and extending to the back. The patient has also been taking venlafaxine, which has caused fatigue and feelings of tiredness, especially after taking it in the morning. However, she notes that her mood has improved overall, with fewer symptoms of anxiety and depression. For sleep, she takes lorazepam daily and is in need of a refill. Additionally, the patient recently visited a senior education specialist and was prescribed a nasal solution, which has slightly helped with her congestion symptoms. She reports persistent upper respiratory symptoms, including headaches, sinus pressure, and right-sided ear pain. She denies exposure to sick contacts recently. * ROS:?Constitutional: +Fatigue Patient denies any excessive fatigue with exercise, [...] , Status post cholecystectomy September 2022 at [facility] . * Hospitalization/Major Diagno stic Procedure:??Denies Past Hospitalization. * Family History:??Father: dec eased.??Mother: .??2 brother(s) , 4 sister(s) . 2 son(s) . .?? mom cancer brain dad anuersym. * Social History:?Tobacco Use:??Tobacco Use/Smoking??Are you a??nonsmoker.?Tob: None ???ETOH: none ???Drug Use: None ???Retired. * Medications:??Taking Vitamin D 50 MCG (2000 UT) Tablet 1 tablet Orally Once a day , Taking Calcium 500 MG Tablet 1 tablet with meals Orally once daily , Taking Trelegy Ellipta 200-62.5-25 MCG/ACT Aerosol Powder Breath Activated 1 puff Inhalation Once a day , Taking Omeprazole Magnesium 20 MG Tablet Delayed Release 1 tablet 1/2 to 1 hour before morning meal Orally Once a day , Notes to Pharmacist: PRN, Taking Venlafaxine HCl ER 37.5 MG Capsule Extended Release 24 Hour 1 capsule with food Orally Once a day , Taking LORazepam 0.5 MG Tablet 1 tab Orally Once a day As needed anxiety, Taking Atorvastatin Calcium 40 MG Tablet Take 1 tablet by mouth once daily , Taking Losartan Potassium-HCTZ 100-12.5 MG Tablet Take 1 tablet by mouth once daily , Taking Celecoxib 200 MG Capsule Take 1 capsule by mouth once daily , Discontinued predniSONE 10 MG Tablet 4 tab x 3 days 3 tabs x 3 days2 tabs x 3 days1 tab x 3 days Orally Once a day , Discontinued busPIRone HCl 5 MG Tablet 1 tablet Orally Twice a day , Medication List reviewed and reconciled with the patient * Allergies:??Bactrim. Objective: * Vitals:??HR:93/min, BP:136/8 0mm Hg, Wt:165.0lbs, BMI:31.17Index, Ht: 61 in, Oxygen sat %:96%. * [...] extremities, sensory exam intact.? Assessment: * Assessment: 1.??Primary hypertension - I 10 (Primary)??2.??Insomnia due to medical condition - G47.01??3.??Asthma - J45.909??4.??Fibromyalgia - M79.7?? #Chronic Exertional Dyspnea : Sees senior education specialist and was prescribed Trelegy Ellipta for her dyspnea. She reports some relief of her congestion symptoms from the nasal solution prescribed by the senior education specialist. Continued use of Trelegy Ellipta should be monitored for effectiveness, and further follow-up with pulmonology is recommended if symptoms persist or worsen. #Migraines :Persistent migraines, described as tension-type headaches with a band-like pressure around her head extending to the back. The Botox injections have provided significant relief, suggesting the benefit of continued treatment. No new triggers reported, but ongoing monitoring of headache frequency and intensity is noted. Has tried oral CRGP and injetable #Insomnia :Taking lorazepam daily for sleep, which has been effective. Refills have been made. #Anxiety:Improved mood with reduced symptoms of anxiety and depression, likely due to venlafaxine therapy. She does not report significant anxiety-related symptoms at this time, but continued monitoring is recommended, particularly in light of her ongoing insomnia and medication use. #Fibromyalgia No specific fibromyalgia symptoms have been reported during this visit. The patient's symptoms of fatigue, which may overlap with fibromyalgia, are likely related to venlafaxine. Further evaluation may be needed if fibromyalgia symptoms emerge or persist. # Chronic serous OM: Ongoing issue. Tried Flonase, and prednisone w/o relief. Continued fluid behind the TM. Refer to ENT. May need myringotomy tubes Case discussed with collaborating physician Merlin Stafford who reviewed the assessment and plan. Chart, medications, labs, vital signs reviewed. Dictation was accomplished with the use of Spime voice recognition software, prone to medical misidentifications and grammatical errors. This is unintentional and the practitioner does try to identify and correct these, but some could still be present. Please do not hesitate to contact practitioner for clarification. All questions answered to patients satisfaction. Patient verbalized understanding of diagnosis and treatments explained. To call sooner prior to next visit it any questions/concerns arise. Plan: * Treatment: * Images: Billing Information: * Visit Code:?? 65756 Office Visit, Est Pt., Level 4. Modifiers: 25, SA * Procedure Codes:?? Care Plan Details* * Sign off status: Completed true * Provider:??MARCIE ALBRECHT PA-C Date:?? History and Physical Notes * HPI (History of Present Illness) Category Sub-Category Detail Notes Category Not es Constitutional Irina is a 74 year old female with PMH of GERD, essential (primary) hypertension, fibromyalgia, anxiety, insomnia, migraines, overweight, hyperlipidemia, and exertional dyspnea presents for a follow up visit. The patient received Botox injections on February 06, which have been significantly helping alleviate her persistent migraines. She describes the headaches as tension-type, starting as a band around her head and extending to the back. The patient has also been taking venlafaxine, which has caused fatigue and feelings of tiredness, especially after taking it in the morning. However, she notes that her mood has improved overall, with fewer symptoms of anxiety and depression. For sleep, she takes lorazepam daily and is in need of a refill. Additionally, the patient recently visited a senior education specialist and was prescribed a nasal solution, which has slightly helped with her congestion symptoms. She reports persistent upper respiratory symptoms, including headaches, sinus pressure, and right-sided ear pain. She denies exposure to sick contacts recently. Examination Category Sub-Category Detail Notes Category Not es General Examination GENERAL APPEARANCE: in no ac douglas distress, well developed, well nourished HEAD: normocephalic, [...]
--- OUTSIDE RECORDS SUMMARY | 2025-02-12 15:55 | XMS_ITS | Clinical Summary ---
Author Organization [facility] Address [address] [place] [address] Care Team Providers Care Budget Director Name Role Phone Nicci Stafford MD Primary Care Provider Allergies Active Allergy Reactions Criticality Noted Date [...] age to complete this topic Care Teams Budget Director Relationship Specialty Start Date End Date Nicci Stafford MD [address] [place] [address] PCP - General Internal Medicine 12/21/22
--- OUTSIDE RECORDS SUMMARY | 2025-02-12 15:55 | XMS_ITS | Continuity of Care Document ---
Author Organization [facility] Address [address] [place] [address] Phone Care Team Providers Care Cloth Dyer Name Role Phone Jose A KITCHEN FACS [...] 15 Mins Dec Duplex Scan-extrem Veins; Comp 23 Office/Oupt E&M New Pt 30 Mins 23 Advance Directives Directive Yes / No Effective Date File Name No Information Encounters Encounter Description Practice Location Reason(s) For Visit Diagnoses Date Provider Providers Copied on Encounter Office/Outpt E&M Established 10 Mins [facility], [address], [place], [id number], [place] tel:[phone] [facility] Chronic venous htn w oth comp of bilateral low extrm 3 Jose A KITCHEN FACS RVT ROD Amaral. [address], [address] [place] [address] [place], [address], [place]. tel:[phone] Referring Provider: Glory Huff, [address], [place], [address]. tel:[phone] [facility] [place], [address] [place] [address] [address], [place], [id number], [place] tel:[phone] [facility] [place] En[place] for f/u exam aft trtmt for cond oth than malig neoplmPain in left leg 3 Jose A KITCHEN FACS RVT ROD Amaral. [address] [place] [address], [place] [address], [place], [address], [place]. tel:[phone] Referring Provider: Glory Huff, [address], [place], [address]. tel:[phone] [facility] [place], [address] [place] [address] [address], [place], [id number], [place] tel:[phone] [facility] [place] Pain in left leg 3 Jose A KITCHEN FACS RVT ROD Amaral. [address] [place] [address], [place], [address], [place]. tel:[phone] Referring Provider: Glory Huff, [address], [place], [address]. tel:[phone] [facility], [address] [place] [address] [address], [place], [id number], [place] tel:[phone] [facility] [place] Chronic venous hypertension w inflammation of l low extrem 3 Jose A KITCHEN FACS RVT ROD Amaral. [facility], [address], [place], [address], [place]. tel:[phone] Referring Provider: Glory Huff, [address] , [place], [address]. tel:[phone] [facility], [address] [place] [address] [address] [place], [id number], [place] tel:[phone] [facility] [place] En[place] for f/u exam aft trtmt for cond oth than malig neoplmVenous insufficiency (chronic) (peripheral) 3 Jose A Amaral. [address], [place] [address], [place], [address], [place]. tel:[phone] Referring Provider: Glory Huff, [address], [place], [address]. tel:[phone] [facility] [place], [address] [place] [address] [address]Mary [place], [id number], [place] tel:[phone] [facility] [place] Venous insufficiency (chronic) (peripheral) 3 Jose A Amaral. [address], [place] [address], [place], [address], [place]. tel:[phone] Referring Provider: Glory Huff, [address], [place], [address]. tel:[phone] Offic/outpt E&m Estab 5 Min Trial - Telemedicine [facility] [place], [address] [place] [address] [address]Mary [place], [id number], [place] tel:[phone] [facility] [place] Venous insufficiency (chronic) (peripheral) 3 Jose A Amaral. [address], [place] [address], [place], [address], [place]. tel:[phone] Referring Provider: Glory Huff, [address] [place] [address], [place], [address]. tel:[phone] Office/Outpt E&M Established 15 Mins [facility] [place], [address] [place] [address] [address] [place], [id number], [place] tel:[phone] [facility] [place] Venous insufficiency (chronic) (peripheral) 3 Jose A Amaral. [address] [place] [address], [place] [address], [place], [address], [place]. tel:[phone] Referring Provider: Glory Huff, [address], [place], [address]. tel:[phone] [facility], [address] [place] [address] [address], [place], [id number], [place] tel:[phone] [facility] [place] Venous insufficiency (chronic) (peripheral) 3 Jose A Amaral. [address] [place] [address], [place] [address], [place], [address], [place]. tel:[phone] Referring Provider: Glory Huff, [address], [place], [address]. tel:[phone] [facility], [address] [place] [address] [address], [place], [id number], [place] tel:[phone] [facility] [place] Venous insufficiency (chronic) (peripheral) 3 Jose A Amaral. [address] [place] [address], [place] [address], [place], [address], [place]. tel:[phone] Referring Provider: Glory Huff, [address], [place], [address]. tel:[phone] Office/Oupt E&M New Pt 30 Mins [facility], [address] [place] [address] [address], [place], [id number], [place] tel:[phone] [facility] [place] Cramp and spasmVenous insufficiency (chronic) (peripheral)Es sential (primary) hypertensionPe ripheral vascular disease, unspecified 3 Jose A KITCHEN FACS, RVT, RPVI Akiko Amaral. [address], [address], [place], [address], [place]. tel:[phone] Referring Provider: Glory Huff, [address], [place], [address]. tel:[phone] Family History Family Member Type Diagnosis Age At Onset No Information Payers Payer name Insurance type Covered republican ID Murtaza conklin(s) [facility] Medicare Advantage [id number] Social History Type Description Quantity Date Captured [...] Information Instructions Date Instruction Additional Infor mation Diet education Related to Body mass index (BMI) 27.0-27.9, adult Giving Encouragement to exercise Related to Body mass index (BMI) 27.0-27.9, adult Lifestyle education Related to B jessie mass index (BMI) 27.0-27.9, adult Patient education booklet given Related to Venous insufficiency (chronic) (peripheral) Assessments Type Assessment Date assessment Chronic venous htn w oth comp of bilateral low extrm Patient Care Teams Name Effective Dates (start - stop) Status Members No Information
--- OUTSIDE RECORDS SUMMARY | 2025-02-12 15:55 | XMS_ITS ---
Author Organization [facility] Address [address] [place] [address] Care Team Providers Care Massotherapist Name Role Phone DORIE WRIGHT Unavailable [phone] AMBROCIOMARCIE Russell Unavailable [phone] ALLERGIES Allergen (clinical drug ingredient) Drug/Non Drug Allergy documented on EMR Reaction Allergy Type Onset Date Status sulfamethoxazole / trimethoprim Bactrim Unknown Drug Allergy Active RESULTS Component Value Reference Range Notes TSH+T4F+T3Free Reviewed date:11/23/2024 08:13:13 AM Interpretation: Performing Lab:[facility], [address], [place], Phone - [phone], Director - Jose Notes/Report: TSH 0.444 0.450-4.500 [...] None Retired. VITAL SIGNS Blood pressure systolic 138 mm Hg 11/22/19 25 Blood pressure diastolic 78 mm Hg 025 Heart Rate 90 /min 11/22/2024 Height 61 in 11/22/2024 Weight 169.8 lbs 11/22/2024 BMI 32.08 kg/m2 11/22/2024 Oximetry 96 % 11/22/2024 Encounters Encounter Location Date Provider Diagnosis [facility] [address] [place] [address] 11/22/2024 MARCIE ALBRECHT Shortness of breath R06.02 [...] Dictation was accomplished with the use of [employer] voice recognition software, which is prone to [...] Dictation was accomplished with the use of [employer] voice recognition software, which is prone to [...] Dictation was accomplished with the use of [employer] voice recognition software, which is prone to [...] Dictation was accomplished with the use of [employer] voice recognition software, which is prone to [...] Dictation was accomplished with the use of [employer] voice recognition software, which is prone to [...] Dictation was accomplished with the use of [employer] voice recognition software, which is prone to [...] 11/22/2024 Next Appt Details Provider Name:MARCIE ALBRECHT, 03/12/2025 08:45:00 AM, [address], [place], [address], Progress Notes * IRINA BOONEDOB:1950 (74 yo F)Acc No.[id number]:11/22/2024 Progress Notes Patient:??IRINA BOONE Provider:??MARCIE ALBRECHT PA-C :1950?Age:74 Y?Sex:Fe male Date:11/22/2024 Address[facility] [id number] Subjective: * Chief Complaints: * ?1. Pt [...] , Status post cholecystectomy September 2022 at [facility] . * Hospitalization/Major Diagno stic Procedure:??Denies Past [...] Dictation was accomplished with the use of [employer] voice recognition software, which is prone to [...] * Images: Billing Information: * Visit Code:?? 66135 Office Visit, Est Pt., Level 4. Modifiers: 25, SA * Procedure Codes:?? 0241U NFCT DS VIR RESP RNA 4 TRGT. Modifiers: QW Care Plan Details* * Sign off status: Completed true * Provider:??MARCIE ABLRECHT PA-C Date:?? History and Physical Notes * [...]
--- OUTSIDE RECORDS SUMMARY | 2025-02-12 15:55 | XMS_ITS | Patient Health Record ---
Author Organization [facility] Address [address] [place] [address] Care Team Providers Care Community Outreach Worker Name Role Phone DORIE WRIGHT Unavailable [phone] AMBROCIOMARCIE Russell Unavailable [phone] NBA MULLER Unavailable [phone] ALLERGIES Allergen (clinical drug ingredient) Drug/Non Drug Allergy documented on EMR Reaction Allergy Type Onset Date Status sulfamethoxazole / trimethoprim Bactrim Unknown Drug Allergy Active RESULTS Component Value Reference Range Notes EKG Reviewed date:10/31/2024 09:45:06 PM Interpretation: Performing Lab: Notes/Report: ECGDiastolicBP 0 ECGDiastolicBP 82 ECGHr 95 ECGHr 94 ECGPRInterval 148 ECGPRInterval 146 ECGPWaveAxis 55 ECGPWaveAxis 52 ECGQRSDuration 92 ECGQRSDuration 92 ECGQrsWaveAxis 10 ECGQrsWaveAxis 12 ECGQTcInterval 417 ECGQTcInterval 415 ECGQTInterval 356 ECGQTInterval 356 ECGSystolicBP 0 ECGSystolicBP 130 ECGTWaveAxis 52 ECGTWaveAxis 54 RR_DiastolicBP 0 RR_DiastolicBP 0 RR_MaxRRInterval 0 RR_MaxRRInterval 0 RR_MeanHR 0 RR_MeanHR 0 RR_MeanRRInterval 0 RR_MeanRRInterval 0 RR_MinRRInterval 0 RR_MinRRInterval 0 RR_NumBeats 0 RR_NumBeats 0 RR_NumNormalBeats 0 RR_NumNormalBeats 0 RR_SystolicBP 0 RR_SystolicBP 0 EKG Reviewed date:10/31/2024 09:45:06 PM Interpretation: Performing Lab: Notes/Report: ECGDiastolicBP 0 ECGDiastolicBP 82 ECGHr 95 ECGHr 94 ECGPRInterval 148 ECGPRInterval 146 ECGPWaveAxis 55 ECGPWaveAxis 52 ECGQRSDuration 92 ECGQRSDuration 92 ECGQrsWaveAxis 10 ECGQrsWaveAxis 12 ECGQTcInterval 417 ECGQTcInterval 415 ECGQTInterval 356 ECGQTInterval 356 ECGSystolicBP 0 ECGSystolicBP 130 ECGTWaveAxis 52 ECGTWaveAxis 54 RR_DiastolicBP 0 RR_DiastolicBP 0 RR_MaxRRInterval 0 RR_MaxRRInterval 0 RR_MeanHR 0 RR_MeanHR 0 RR_MeanRRInterval 0 RR_MeanRRInterval 0 RR_MinRRInterval 0 RR_MinRRInterval 0 RR_NumBeats 0 RR_NumBeats 0 RR_NumNormalBeats 0 RR_NumNormalBeats 0 RR_SystolicBP 0 RR_SystolicBP 0 URINALYSIS Reviewed date:05/31/2024 08:41:20 AM Interpretation: Performing Lab: Notes/Report: Note Original Ordering Provider: MARCIE ALBRECHT PA-C (EMERY) [employer], [place] [address] Business Planning Director - Natasha Rangel MD GLUCOSE, (UA) NEGATIVE NEGATIVE mg/dL BILIRUBIN, URINE NEGATIVE NEGATIVE KETONE, URINE NEGATIVE NEGATIVE mg/dL SPECIFIC GRAVITY, URINE 1.020 1.003-1.030 BLOOD, URINE NEGATIVE NEGATIVE PH, URINE 6.0 5.0-8.0 PROTEIN, URINE NEGATIVE <= TRACE mg/dl UROBILINOGEN, URINE 1.0 0.2-1.0 E.U./dL NITRITE, URINE NEGATIVE NEGATIVE LEUKOCYTE ESTERASE, URINE SMALL NEGATIVE Note Original Ordering Provider: MARCIE ALBRECHT PA-C (EMERY) [employer], [place] [address] Business Planning Director - Natasha Rangel MD GLYCOHEMOGLOBIN PROFILE Reviewed date:05/31/2024 08:41:20 AM Interpretation: Performing Lab: Notes/Report: GLYCATED HEMOGLOBIN A1C 6.3 <6.5 % ESTIMATED AVERAGE GLUCOSE [address]OLIC PANE L Reviewed date:05/31/2024 08:40:56 AM Interpretation: Performing Lab: Notes/Report: Note Original Orderi ng Provider: MARCIE DALEY) MICAH GLUCOSE 110 70-100 mg/dL Reference range applicable to fasting specimens only BUN 18 5-25 mg/dL CREAT 0.96 0.5-1.1 mg/dL GLOMERULAR FILTRATION RATE 62 >60 This eGFR result was calculated using the CKD-EPI 2020 Creatinine Equation SODIUM 142 135-145 mEq/L POTASSIUM 4.0 3.5-5.5 mmol/L CHLORIDE 106 96-110 mmol/L CO2 28 21-32 mmol/L ANION GAP 8 3-11 CALCIUM 9.4 8.5-10.5 mg/dL TOTAL PROTEIN 7.1 6.0-8.0 G/dL ALBUMIN 4.0 3.2-5.0 G/dL BILI,TOTAL 0.5 0.0-1.4 mg/dL SGOT 21 10-42 U/L SGPT 30 10-60 U/L ALK PHOS 100 42-121 U/L CBC WITH AUTO DIFF Reviewed date:05/31/2024 08:41:20 AM Interpretation: Performing Lab: Notes/Report: WBC 10.1 4.8-10.8 x10-3/uL RBC 4.4 3.8-4.8 x10-6/uL HEMOGLOBIN 13.3 11.5-16.0 g/dL HEMATOCRIT 41.1 35-47 % MCV 92.6 79-98 fL MCH 30.0 27-32 pg MCHC 32.4 32-37 g/dL RDW 12.3 11-15 % PLT COUNT 337 130-400 x10-3/uL MEAN PLATELET VOLUME 9.9 7-11 fL NRBC % AUTO 0.0 <1 % NEUT % 64.5 LYMPH % 26.2 MONO % 6.7 EOS % 1.7 BASO % 0.6 IMMATURE GRANULOCYTES % 0.3 NRBC # AUTO 0.00 <0.1 x10-3/uL ABSOLUTE NEUT 6.51 1.5-7.0 x10-3/uL LYMPH # 2.65 1-5.0 x10-3/uL MONO # 0.68 0.2-1.0 x10-3/uL EOS # 0.17 0-0.5 x10-3/uL BASO # 0.06 0-0.2 x10-3/uL IMMATURE GRANULOCYTES # 0.03 0-0.03 x10-3/uL LIPID PROFILE Reviewed date:05/31/2024 08:41:20 AM Interpretation: Performing Lab: Notes/Report: CHOLESTEROL 197 0-200 mg/dL TRIGLYCERIDES 211 0-150 mg/dL VITAMIN D, 25-HYDROXY Reviewed date:05/31/2024 08:41:20 AM Interpretation: Performing Lab: Notes/Report: VITAMIN D, 25-HYDROXY 36 30-80 ng/mL VITAMIN B12 Reviewed date:05/31/2024 08:41:20 AM Interpretation: Performing Lab: Notes/Report: VITAMIN B12 359 250-900 pg/mL FREE T4 Reviewed date:05/31/2024 08:41:20 AM Interpretation: Performing Lab: Notes/Report: FREE T4 0.99 0.70-1.80 ng/dL TSH Reviewed date:05/31/2024 08:41:20 AM Interpretation: Performing Lab: Notes/Report: TSH 0.51 0.40-4.00 uIU/ml CARDIO CRP- HIGH SENSITIVE Reviewed date:05/31/2024 08:41:20 AM Interpretation: Performing Lab: Notes/Report: CARDIO CRP- HIGH SENSITIVE 0.6 Cardio CRP Relative Risk Categories Low <1.0 mg/L Average 1.0 - 3.0 mg/L High >3.0 mg/L Levels >10.0 should be ignored and repeated when the patient is stable and infection or inflammation is ruled out. HRT (estrogens) consistently increase cardio CRP levels. Risk estimates for women on HRT may need to be calibrated downward. FREE T3 Reviewed date:05/31/2024 08:41:20 AM Interpretation: Performing Lab: Notes/Report: FREE T3 298 230-420 pg/dl MR Abdomen W WO Reviewed date:02/13/2024 01:25:04 PM Interpretation: Performing Lab: Notes/Report: Original Ordering Provider: [facility] CR Spine Lumbar 2 or 3 Views Reviewed date:05/30/2024 09:31:30 AM Interpretation: Performing Lab: Notes/Report: Original Ordering Provider: [facility] Amylase-[id number] Reviewed date:11/23/2024 08:13:13 AM Interpretation: Performing Lab:[facility], [address] [place] [address], Phone - [phone], Director - Jose Notes/Report: Amylase 57 31-110 U/L Lipase-[id number] Reviewed date:11/23/2024 08:13:13 AM Interpretation: Performing Lab:[facility], [address] [place] [address], Phone - [phone], Director - Jose Notes/Report: Lipase 24 14-85 U/L Vitamin [id number] Reviewed date:11/23/2024 08:13:13 AM Interpretation: Performing Lab:[facility], [address] [place] [address], Phone - [phone], Director - Jose Notes/Report: Vitamin B12 381 038-1411 pg/mL Lucero Jacquelyn CMP14 Default A hand-written panel/profile was received from your office. In accordance with the [facility] Ambiguous Test Code Policy dated April 2003, we have completed your order by using the closest currently or formerly recognized AMA panel. We have assigned Comprehensive Metabolic Panel (14), Test Code #877929 to this request. If this is not the testing you wished to receive on this specimen, please contact the [facility] Client Inquiry/Technical Services Department to clarify the test order. We appreciate your business. CBC With Differential/Platel et-[id number] Reviewed date:11/23/2024 08:13:13 AM Interpretation: Performing Lab:[facility], [address] [place] [address], Phone - [phone], Director - Jose Notes/Report: WBC 10.3 3.4-10.8 x10E3/uL RBC 4.60 3.77-5.28 x10E6/uL Hemoglobin 13.6 11.1-15.9 g/dL Hematocrit 41.9 34.0-46.6 % MCV 91 79-97 fL MCH 29.6 26.6-33.0 pg MCHC 32.5 31.5-35.7 g/dL RDW 12.5 11.7-15.4 % Platelets 333 150-450 x10E3/uL Neutrophils 68 Not Estab. % Lymphs 22 Not Estab. % Monocytes 7 Not Estab. % Eos 2 Not Estab. % Basos 1 Not Estab. % Immature Cells Neutrophils (Absolute) 7.0 1.4-7.0 x10E3/uL Lymphs (Absolute) 2.3 0.7-3.1 x10E3/uL Monocytes(Absolute) 0.7 0.1-0.9 x10E3/uL Eos (Absolute) 0.2 0.0-0.4 x10E3/uL Baso (Absolute) 0.1 0.0-0.2 x10E3/uL Immature Granulocytes 0 Not Estab. % Immature Grans (Abs) 0.0 0.0-0.1 x10E3/uL NRBC Hematology Comments: Thyroglobulin Antibody-[id number] 5 Reviewed date:11/23/2024 08:13:13 AM Interpretation: Performing Lab:[facility], [address] [place] [address], Phone - [phone], Director - Chuyy Notes/Report: Thyroglobulin Antibody <1.0 0.0-0.9 IU/mL Thyroglobulin Antibody measured by [employer] . It should be noted that the presence of thyroglobulin antibodies may not be pathogenic nor diagnostic, especially at very low levels. The assay dispatcher chief oil has found that four percent of individuals without evidence of thyroid disease or autoimmunity will have positive TgAb levels up to 4 IU/mL. Lipid Panel-[id number] Reviewed date:11/23/2024 08:13:13 AM Interpretation: Performing Lab:[facility] [address] [place] [address], Phone - [phone], Director - Chuyy Notes/Report: Cholesterol, Total 186 100-199 mg/dL Triglycerides 168 0-149 mg/dL HDL Cholesterol 45 >39 mg/dL VLDL Cholesterol Lenny 30 5-40 mg/dL LDL Chol Calc ([facility]) 111 0-99 mg/dL LDL Calc Comment: Comp. Metabolic Panel (14)-3 [id number] Reviewed date:11/23/2024 08:11:04 AM Interpretation: Performing Lab:[facility], [address] [place] [address], [facility], Phone - [phone], Director - Chuyy Notes/Report: Glucose 100 70-99 mg/dL BUN 17 8-27 mg/dL Creatinine 1.05 0.57-1.00 mg/dL eGFR 55 >59 mL/min/1.73 BUN/Creatinine Ratio 16 12-28 Sodium 140 134-144 mmol/L Potassium 4.0 3.5-5.2 mmol/L Chloride 100 96-106 mmol/L Carbon Dioxide, Total 27 20-29 mmol/L Calcium 9.6 8.7-10.3 mg/dL Protein, Total 7.4 6.0-8.5 g/dL Albumin 4.7 3.8-4.8 g/dL Globulin, Total 2.7 1.5-4.5 g/dL Bilirubin, Total 0.6 0.0-1.2 mg/dL Alkaline Phosphatase 98 44-121 IU/L AST (SGOT) 19 0-40 IU/L ALT (SGPT) 14 0-32 IU/L Lucreo Valladares LP Default Reviewed date:11/23/2024 08:13:13 AM Interpretation: Performing Lab:[facility], [address] [place] [address], [facility], Phone - [phone], Director - Jose Notes/Report: Lucero Valladares LP Default A hand-written panel/profile was received from your office. In accordance with the [facility] Amb[facility] Policy dated April 2003, we have completed your order by using the closest currently or formerly recognized AMA panel. We have assigned Lipid Panel, Test Code #[id number] to this request. If this is not the testing you wished to receive on this specimen, please contact the [facility] Client Inquiry/Technical Services Department to clarify the test order. We appreciate your business. TSH+T4F+T3Free Reviewed date:11/23/2024 08:13:13 AM Interpretation: Performing Lab:[facility], [address] [facility], [facility], Phone - [phone], Director - Jose Notes/Report: TSH 0.444 0.450-4.500 uIU/mL Triiodothyronine (T3), Free 3.5 2.0-4.4 pg/mL T4,Free(Direct) 1.59 0.82-1.77 ng/dL REASON FOR REFERRAL Reason [facility] Diagnosis 1 Spinal arthritis (M4 7.819) Referral Organization [facility] Referring Provider First Name MARCIE Referring Provider Last Name AMBROCIO Referring Provider Speciality Internal M edicine Referred Provider Specialty Physical The rapist General Notes IRVING ISRAEL 0 05/30/2024 09:35:27 AM >info sent to both office and to patient- pt can call and book- pt has number Referral Priority Routine Diagnosis 1 Back pain, unspecifi ed back location, unspecified back pain laterality, unspecified chronicity (M54.9) Diagnosis 2 Lumbar foraminal [place] nosis (M48.061) Referral Organization [facility] Referring Provider First Name [place] Referring Provider Last Name WRIGHT Referring Provider Speciality Internal M edicine Referred Provider Specialty Neurosurgery General Notes Karen Marks 2023 11:45:13 AM >faxed to sealy [phone] p [phone] with mri Clinical Notes Navjot Talbert 02:47:25 PM > The patient was seen on on 10/10/24 Referral Priority Routine Reason Evaluate & Treat Diagnosis 1 Serous otitis media, unspecified chronicity, unspecified laterality (H65.90) Referral Organization [facility] Referring Provider First Name DORIE Referring Provider Last Name WRIGHT Referring Provider Speciality Internal M edicine Referred Provider Specialty Ear, nose an d throat surgeon General Notes Anjali Singleton 12/02 02:26:26 PM >Filled out form for ENT and faxed over with recent notes., p.[phone], f.[phone] Clinical Notes NitishNavjot pierre 03:33:27 PM > The patient was seen on 01/08/25 Referral Priority Routine MEDICATIONS Medication SIG (Take, Route, Frequency, Duration) Notes Start Date End Date Status Calcium 500 MG 1 tablet with meals Orally once daily Active Vitamin D 50 MCG (1999) 1 tablet Oral ly Once a day Active Albuterol Sulfate (2.5 MG/3ML) 0.083% 3 mL as needed Inhalation every 6 hrs for 30 days 12/25/2024 Active Losartan Potassium-HCTZ 100-12.5 MG Take 1 tablet by mouth once daily for 90 Active Atorvastatin Calcium 40 MG Take 1 tablet by mouth once daily for 90 Active Celecoxib 200 MG Take 1 capsule by ut once daily for 90 Active Omeprazole Magnesium 20 MG 1 tablet 1/2 to 1 hour before morning meal Orally Once a day for 90 days PRN Active Trelegy Ellipta 200-62.5-25 MCG/ACT 1 puff Inhalation Once a day Active LORazepam 0.5 MG 1 tab Orally Once a day for 30 days 12/25/2024 Active Venlafaxine HCl ER 37.5 MG 1 capsule wit h food Orally Once a day for 90 days Active IMMUNIZATIONS Vaccine Route Administration Date Status Comme nts influenza IM Intramuscular 07/07/2022 Administered Influenza, high dose seasonal IM Intramuscular 07/07/2023 Administered SHINGRIX IM Intramuscular 09/02/2022 Administered SHINGRIX IM Intramuscular 05/16/2023 Administered SOCIAL HISTORY Tobacco Use: Social History Observation Description Date Details (start date - stop date) Never Smoker NA - NA Sex Assigned At : Social History Observation Description Sex Assigned At Unknown Tobacco Use/Smoking Question Answer Notes Are you a nonsmoker Section Notes: Tob: None ETOH: none Drug Use: None Retired. Tob: None ETOH: none Drug Use: None Retired. Tob: None ETOH: none Drug Use: None Retired. Tob: None ETOH: none Drug Use: None Retired. Tob: None ETOH: none Drug Use: None Retired. Tob: None ETOH: none Drug Use: None Retired. Tob: None ETOH: none Drug Use: None Retired. Tob: None ETOH: none Drug Use: None Retired. 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) Active confirmed Reactive airwa y disease (652849589680) Problem Calculus of gallbladder without cholecystitis without obstruction (K80.20) Active confirmed 36255787 Problem Fibromyalgia (M79.7) Active confirmed 398832702 Problem Snoring (R06.83) Active confirmed Snori ng (92350509) Problem Epigastric pain (R10.13) Active confirmed 41195369 Problem Elevated C-reactive protein (CRP) (R79.82) Active confirmed 652616213400060 Problem Encounter for general adult medical examination without abnormal findings (Z00.00) Active confirmed 030122119 Problem Encounter for screening for diabetes mellitus (Z13.1) Active confirmed 618687574 Problem Encounter for screening for cardiovascular disorders (Z13.6) Active confirmed Screening for cardiovascular system disease (900987011) Problem Prediabetes (R73.03) Active confirmed 778082268 Problem Neuropathy (G62.9) Active confirmed Neuropathy (809459670) Problem Hyperlipidemia, unspecified hyperlipidemia type (E78.5) Active confirmed 36394013 Problem Migraine without status migrainosus, not intractable, unspecified migraine type (G43.909) Active confirmed Migraine (09289983) Problem Anxiety (F41.9) Active confirmed Anxiet y (80047420) Problem Hypothyroidism, unspecified type (E03.9) Active confirmed 47729956 Problem Vitamin D deficiency (E55.9) Active confirmed Vitamin D deficiency (53043944) Problem Obesity (BMI 30-39.9) (E66.9) Active confirmed Obesity (169458350) Problem Headache, unspecified (R51.9) Active confirmed Headache (98974854) Problem Persistent headaches (R51.9) Active confirmed 13232005 Problem Memory change (R41.3) Active confirmed 606985724 Problem Anemia due to vitamin B12 deficiency, unspecified B12 deficiency type (D51.9) Active confirmed 09708929 Problem Primary hypertension (I10) Active confirmed 78801754 Problem Moderate episode 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) Active confirmed 211927506 Problem Claudication of both lower extremities (I73.9) Active confirmed Peripheral vascular disease (757130094) Problem Hepatic lesion (K76.9) Active confirmed 686122241 Problem Claudication (I73.9) Active confirmed Claudication (14155331) Problem Abnormal CT of the abdomen (R93.5) Active confirmed CT of abdomen abnormal (01947616368459095 ) Problem Asthma (J45.909) Active confirmed Asthm a (739664747) Problem Lipid screening (Z13.220) Active confirmed 555751122 Problem Lumbar back pain (M54.50) Active confirmed 439625317 Problem Globus sensation (R09.A2) Active confirmed 094100972 Problem 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) Active confirmed 932588997 Problem Cervical arthritis (M47.812) Active confirmed 965081672 Problem Lumbar foraminal stenosis (M48.061) Active confirmed 842541831 Problem Serous otitis media, unspecified chronicity, unspecified laterality (H65.90) Active confirmed Non-suppurative otitis media (191740998) VITAL SIGNS Heart Rate 93 /min 12/25/2024 Blood pressure diastolic 80 mm Hg 12/25/2024 Oximetry 96 % 12/25/2024 Height 61 in 12/25/2024 Blood pressure systolic 136 mm Hg 12/25/2024 Weight 165.0 lbs 12/25/2024 BMI 31.17 kg/m2 12/25/2024 Encounters Encounter Location Date Provider Diagnosis [facility] [address] [place] [address] 05/29/2024 MARCIE ALBRECHT Migraine without status migrainosus, not intractable, unspecified migraine type G43.909 ; Asthma J45.909 ; Anxiety F41.9 ; Insomnia due to medical condition G47.01 and Sciatic nerve pain, unspecified laterality M54.[address] [address] 08/23/2024 MARCIE ALBRECHT Lumbar back pain M54.50 ; Medicare annual wellness visit, subsequent Z00.00 ; Depression screen Z13.31 ; Encounter for screening for other disorder Z13.89 ; Obesity (BMI 30-39.9) E66.9 and Advanced care planning/counseling discussion Z71.[address] [address] 10/25/2024 MARCIE ALBRECHT Obesity (BMI 30-39.9 ) E66.9 ; Primary hypertension I10 ; Prediabetes R73.03 ; Anxiety F41.9 and Insomnia due to medical condition G47.[address] [address] 10/31/2024 NBA MULLER Acute upper respiratory infection, unspecified J06.9 ; Fibromyalgia M79.7 ; Primary hypertension I10 ; Anxiety F41.9 ; Headache, unspecified R51.9 and Dizzy R42 [address] [address] 11/22/2024 MARCIE ALBRECHT Shortness of breath R06.02 ; Acute upper respiratory infection, unspecified J06.9 ; Fibromyalgia M79.7 ; Anxiety F41.9 ; Headache, unspecified R51.9 and Dizzy R42 [place] [address] [place] [address] 12/25/2024 MARCIE ALBRECHT Primary hypertension I10 ; Insomnia due to medical condition G47.01 ; Asthma J45.909 and Fibromyalgia M79.7 [address] [place] [address] 06/13/2024 DORIE WRIGHT [facility] [address] [place] [place] [address] 08/23/2024 DORIE WRIGHT [address] [place] [address] 10/30/[address] [place] [address] 10/31/2024 NBA RENZO [address] [place] [address] 11/20/2024 MARCIE ALBRECHT [address] [place] [address] 11/22/2024 DORIE WRIGHT ASSESSMENTS Encounter Date Diagnosis Assessment Notes Treatment Notes Treatment Clinical Notes Section Notes 05/29/2024 Migraine without status migrainosus, not intractable, unspecified migraine type (ICD-10 - G43.909) # Sciatica: Will order lumbar x-rays. COnsider PT/MRI # Asthma: Changed from Breztri to Trelegy with adequate relief. Had PFT. Has nebulizer- using BID. Had ALbuterol HFA. Sees Dr. Kaiser # Anxiety.Continue Effexor for now. Will talk about dc'ing Remeron due to increased hunger affect. Using ativan prn # Constipation. MIralax daily with relief # Migraines. working with neurology reports headaches now assocatied with right ear pain. On Propranolol 20 mg po neal. Following up next week. Confirmed JENNIFER. Got Botox with improvement # JENNIFER. Referred to pulm. # CKD III. Monitor. Avoid NSAIDS # Insomnia. Taking CBD gummies, with improvement. Case discussed with collaborating physician Merlin Stafford who reviewed the assessment and plan. Chart, medications, labs, vital signs reviewed. Dictation was accomplished with the use of [employer] voice recognition software, prone to medical misidentifications and grammatical errors. This is unintentional and the practitioner does try to identify and correct these, but some could still be present. Please do not hesitate to contact practitioner for clarification. All quetsions answered to patients satisfaction. Patient verbalized understanding of diagnosis and treatments explained. To call sooner prior to next visit it any questions/concerns arise. 05/29/2024 Asthma (ICD-10 - J45.909) # Sciatica: Will order lumbar x-rays. COnsider PT/MRI # Asthma: Changed from Breztri to Trelegy with adequate relief. Had PFT. Has nebulizer- using BID. Had ALbuterol HFA. Sees Dr. Kaiser # Anxiety.Continue Effexor for now. Will talk about dc'ing Remeron due to increased hunger affect. Using ativan prn # Constipation. MIralax daily with relief # Migraines. working with neurology reports headaches now assocatied with right ear pain. On Propranolol 20 mg po neal. Following up next week. Confirmed JENNIFER. Got Botox with improvement # JENNIFER. Referred to pulm. # CKD III. Monitor. Avoid NSAIDS # Insomnia. Taking CBD gummies, with improvement. Case discussed with collaborating physician Merlin Stafford who reviewed the assessment and plan. Chart, medications, labs, vital signs reviewed. Dictation was accomplished with the use of [employer] voice recognition software, prone to medical misidentifications and grammatical errors. This is unintentional and the practitioner does try to identify and correct these, but some could still be present. Please do not hesitate to contact practitioner for clarification. All quetsions answered to patients satisfaction. Patient verbalized understanding of diagnosis and treatments explained. To call sooner prior to next visit it any questions/concerns arise. 08/23/2024 Medicare annual wellness visit, subsequent (ICD-10 - Z00.00) Irina is a 74 year old female with a past medical history of anxiety, GERD, essential hypertension, fibromyalgia, insomnia, migraines, and asthma presenting to the clinic for medicare wellness visit. # R sided sciatica/ lower back pain: Has had lumbar x-rays, with DDD. Has completed 4 weeks of PT with worsening sx. MRI of lumbar spine w.o contrast will be ordered. Will add gabapentin 100 mg po bedtime for pain relief. Informed patient christoph Gabapentin increases feeling of tiredness and is recommended to take at night. # Asthma: Changed from Breztri to Trelegy with adequate relief. Had PFT. Has nebulizer- using BID. Had ALbuterol HFA. Sees Dr. Kaiser. Well controlled. Continues to see Dr. Kaiser. # Anxiety. Continue Effexor for now. Using ativan prn. Requesting refill. Mass PAT reviewed. Educated on not mixing gabapentin and Ativan. # Constipation. Miralax prn with relief. Stable. # Migraines. Seeing neurology, getting Botox. Notes improvement of headaches with botox. Stable. # JENNIFER. CPAP. Stable. # CKD III. Monitor. Avoid NSAIDS. # Insomnia. Taking CBD gummies, with improvement. Has had difficulty sleeping due to right lower back pain. Discussed trialing Gabapentin 100 mg, to be taken at bedtime, which can potentially hellp the pain as well as increase tiredness. # Hypertension. Is compliant with medications. Blood pressure readings today were 162/100 and 160/100 respectively. Advised to monitor blood pressure readings at home as she mentions she tends to have hypertension when visiting provider offices. # GERD. Stable. Currently takes Omeprazole Magnesium 20 mg. # Fibromyalgia: Stable. Currently not taking celexocib 200 mg capsules. # Vaccines. Due for flu shot # Screenings: UTD Patient seen and examined. Comprehensive discussion was done on the following. 1. Nutrition: It is important to follow a healthy diet based on lots of vegetables and legumes and good fat. Avoid processed food and processed carbohydrates. Learn to prepare your own meals. Learn to read labels and avoid high fructose corn syrup, processed chemicals added to increase shelf life and preprepared meals. Avoid fast foods. Learn to eat slowly and plan meals for a week. Try to count calories and be mindful off daily calorie intake. Get into the habit of keeping an eye on your weight by using an appropriate scale. Learn to log exercise and discussed fitness Apps like [employer] which can help keep log off calories taken versus calories burned. Local food should be preferred. Discussed Dirty Dozen Versus Clean Fifteen. Discussed healthy supplements like fish oil, Tumeric, Curcumin, Melatonin, Resveratrol, Probiotics, Vitamin-D, Alpha-Lipoic acid, Vitamin-D and coconut oil. 2. It is important to exercise regularly. Is a good habit to walk at least 30-45 minutes a day. Gentle weightlifting with standard precautions to protect the back. Finding activity like cycling or hiking and get into the habit of engaging in it. Stretching before and after the exercises important. It is also important to contact me if there are any problems like shortness of breath, chest pain, back pain and joint or muscle pain associated with the exercise. 3. Discussed age appropriate screening guidelines. Colonoscopy needs to start at age 50 with stool for occult blood as appropriate. There is a new test that can test for genetic abnormalities in the stool sample. This would not replace a colonoscopy but could be used as a screening tool for patients who do not want a colonoscopy. We discussed the importance of early detection of colon cancer. 4. Discussed current guidelines with respect to breast examination, mammogram and pap smear for early detection of breast and cervical cancer. Patient advised to follow up with these appointments. 5. Discussed safe driving and no use of smart phone while driving 6. Age-appropriate immunizations were discussed. A tetanus booster is needed every 10 years. Flu vaccine is recommended every year just before the start of the flu season. Shingles vaccine is recommended after age 50 but not all insurances cover it.Pneumonia vaccine is given after age 65 unless there are certain comorbidities for which it is started earlier. 7. Diagnostic labs were discussed. These could include CBC CMP and lipids with fasting blood glucose and insulin levels. Vitamin D and hemoglobin A1c testing might be appropriate. Will follow up in 2 months for reassessment of hypertension and right low back pain. Will call patient about the results of MRI of lumbar spine. Case discussed with collaborating physician Merlin Stafford who reviewed the assessment and plan. Chart, medications, labs, vital signs reviewed. Dictation was accomplished with the use of [employer] voice recognition software, prone to medical misidentifications and grammatical errors. This is unintentional and the practitioner does try to identify and correct these, but some could still be present. Please do not hesitate to contact practitioner for clarification. All quetsions answered to patients satisfaction. Patient verbalized understanding of diagnosis and treatments explained. To call sooner prior to next visit it any questions/concerns arise. 08/23/2024 Lumbar back pain (ICD-10 - M54.50) Irina is a 74 year old female with a past medical history of anxiety, GERD, essential hypertension, fibromyalgia, insomnia, migraines, and asthma presenting to the clinic for medicare wellness visit. # R sided sciatica/ lower back pain: Has had lumbar x-rays, with DDD. Has completed 4 weeks of PT with worsening sx. MRI of lumbar spine w.o contrast will be ordered. Will add gabapentin 100 mg po bedtime for pain relief. Informed patient christoph Gabapentin increases feeling of tiredness and is recommended to take at night. # Asthma: Changed from Breztri to Trelegy with adequate relief. Had PFT. Has nebulizer- using BID. Had ALbuterol HFA. Sees Dr. Kaiser. Well controlled. Continues to see Dr. Kaiser. # Anxiety. Continue Effexor for now. Using ativan prn. Requesting refill. Mass PAT reviewed. Educated on not mixing gabapentin and Ativan. # Constipation. Miralax prn with relief. Stable. # Migraines. Seeing neurology, getting Botox. Notes improvement of headaches with botox. Stable. # JENNIFER. CPAP. Stable. # CKD III. Monitor. Avoid NSAIDS. # Insomnia. Taking CBD gummies, with improvement. Has had difficulty sleeping due to right lower back pain. Discussed trialing Gabapentin 100 mg, to be taken at bedtime, which can potentially hellp the pain as well as increase tiredness. # Hypertension. Is compliant with medications. Blood pressure readings today were 162/100 and 160/100 respectively. Advised to monitor blood pressure readings at home as she mentions she tends to have hypertension when visiting provider offices. # GERD. Stable. Currently takes Omeprazole Magnesium 20 mg. # Fibromyalgia: Stable. Currently not taking celexocib 200 mg capsules. # Vaccines. Due for flu shot # Screenings: UTD Patient seen and examined. Comprehensive discussion was done on the following. 1. Nutrition: It is important to follow a healthy diet based on lots of vegetables and legumes and good fat. Avoid processed food and processed carbohydrates. Learn to prepare your own meals. Learn to read labels and avoid high fructose corn syrup, processed chemicals added to increase shelf life and preprepared meals. Avoid fast foods. Learn to eat slowly and plan meals for a week. Try to count calories and be mindful off daily calorie intake. Get into the habit of keeping an eye on your weight by using an appropriate scale. Learn to log exercise and discussed fitness Apps like [employer] which can help keep log off calories taken versus calories burned. Local food should be preferred. Discussed Dirty Dozen Versus Clean Fifteen. Discussed healthy supplements like fish oil, Tumeric, Curcumin, Melatonin, Resveratrol, Probiotics, Vitamin-D, Alpha-Lipoic acid, Vitamin-D and coconut oil. 2. It is important to exercise regularly. Is a good habit to walk at least 30-45 minutes a day. Gentle weightlifting with standard precautions to protect the back. Finding activity like cycling or hiking and get into the habit of engaging in it. Stretching before and after the exercises important. It is also important to contact me if there are any problems like shortness of breath, chest pain, back pain and joint or muscle pain associated with the exercise. 3. Discussed age appropriate screening guidelines. Colonoscopy needs to start at age 50 with stool for occult blood as appropriate. There is a new test that can test for genetic abnormalities in the stool sample. This would not replace a colonoscopy but could be used as a screening tool for patients who do not want a colonoscopy. We discussed the importance of early detection of colon cancer. 4. Discussed current guidelines with respect to breast examination, mammogram and pap smear for early detection of breast and cervical cancer. Patient advised to follow up with these appointments. 5. Discussed safe driving and no use of smart phone while driving 6. Age-appropriate immunizations were discussed. A tetanus booster is needed every 10 years. Flu vaccine is recommended every year just before the start of the flu season. Shingles vaccine is recommended after age 50 but not all insurances cover it.Pneumonia vaccine is given after age 65 unless there are certain comorbidities for which it is started earlier. 7. Diagnostic labs were discussed. These could include CBC CMP and lipids with fasting blood glucose and insulin levels. Vitamin D and hemoglobin A1c testing might be appropriate. Will follow up in 2 months for reassessment of hypertension and right low back pain. Will call patient about the results of MRI of lumbar spine. Case discussed with collaborating physician Merlin Stafford who reviewed the assessment and plan. Chart, medications, labs, vital signs reviewed. Dictation was accomplished with the use of [employer] voice recognition software, prone to medical misidentifications and grammatical errors. This is unintentional and the practitioner does try to identify and correct these, but some could still be present. Please do not hesitate to contact practitioner for clarification. All quetsions answered to patients satisfaction. Patient verbalized understanding of diagnosis and treatments explained. To call sooner prior to next visit it any questions/concerns arise. 10/25/2024 Obesity (BMI 30-39.9) (ICD-10 - E66.9) Irina is a 74 year old female with a past medical history of anxiety, GERD, essential hypertension, fibromyalgia, insomnia, migraines, and asthma # Asthma: Well controlled. Changed from Breztri to Trelegy with adequate relief. Had PFT. Has nebulizer- using once a week. Sees Dr. Kaiser regularly, next appointment in December. # Anxiety. Reports increase in anxiety and trouble sleeping. Will add buspirone 5 mg po BID PRN. Advised to try buspirone first before taking an Ativan. Continue Effexor QD and Ativan PRN. Refill sent to pharmacy. Mass PAT reviewed. # Constipation. Miralax prn with relief. Stable. # Migraines. Stable. Notes improvement of headaches with botox, last injection was yesterday with next injection scheduled for January. Seeing neurology every 3 months. # JENNIFER. CPAP. Stable. # CKD III. Monitor. Avoid NSAIDS. # Insomnia. Taking CBD gummies, with improvement. Has had difficulty sleeping due to right lower back pain. Discussed trialing Gabapentin 100 mg, to be taken at bedtime, which can potentially hellp the pain as well as increase tiredness. # Hypertension. Is compliant with medications. Blood pressure readings today were 144/82. Advised to monitor blood pressure readings at home as she mentions she tends to have hypertension when visiting provider offices. # GERD. Stable. Currently takes Omeprazole Magnesium 20 mg. # Fibromyalgia: Stable. Continue celexocib 200 mg capsules. Will follow up in 3 months for reassessment of hypertension and right low back pain. Will call patient about the results of MRI of lumbar spine. Case discussed with collaborating physician Luke Stafford who reviewed the assessment and plan. Chart, medications, labs, vital signs reviewed. Dictation was accomplished with the use of [employer] voice recognition software, prone to medical misidentifications and grammatical errors. This is unintentional and the practitioner does try to identify and correct these, but some could still be present. Please do not hesitate to contact practitioner for clarification. All quetsions answered to patients satisfaction. Patient verbalized understanding of diagnosis and treatments explained. To call sooner prior to next visit it any questions/concerns arise. 10/25/2024 Primary hypertension (ICD-10 - I10) Irina is a 74 year old female with a past medical history of anxiety, GERD, essential hypertension, fibromyalgia, insomnia, migraines, and asthma # Asthma: Well controlled. Changed from Breztri to Trelegy with adequate relief. Had PFT. Has nebulizer- using once a week. Sees Dr. Kaiser regularly, next appointment in December. # Anxiety. Reports increase in anxiety and trouble sleeping. Will add buspirone 5 mg po BID PRN. Advised to try buspirone first before taking an Ativan. Continue Effexor QD and Ativan PRN. Refill sent to pharmacy. Mass PAT reviewed. # Constipation. Miralax prn with relief. Stable. # Migraines. Stable. Notes improvement of headaches with botox, last injection was yesterday with next injection scheduled for January. Seeing neurology every 3 months. # JENNIFER. CPAP. Stable. # CKD III. Monitor. Avoid NSAIDS. # Insomnia. Taking CBD gummies, with improvement. Has had difficulty sleeping due to right lower back pain. Discussed trialing Gabapentin 100 mg, to be taken at bedtime, which can potentially hellp the pain as well as increase tiredness. # Hypertension. Is compliant with medications. Blood pressure readings today were 144/82. Advised to monitor blood pressure readings at home as she mentions she tends to have hypertension when visiting provider offices. # GERD. Stable. Currently takes Omeprazole Magnesium 20 mg. # Fibromyalgia: Stable. Continue celexocib 200 mg capsules. Will follow up in 3 months for reassessment of hypertension and right low back pain. Will call patient about the results of MRI of lumbar spine. Case discussed with collaborating physician Luke Stafford who reviewed the assessment and plan. Chart, medications, labs, vital signs reviewed. Dictation was accomplished with the use of [employer] voice recognition software, prone to medical misidentifications and grammatical errors. This is unintentional and the practitioner does try to identify and correct these, but some could still be present. Please do not hesitate to contact practitioner for clarification. All quetsions answered to patients satisfaction. Patient verbalized understanding of diagnosis and treatments explained. To call sooner prior to next visit it any questions/concerns arise. 10/31/2024 Acute upper respiratory infection, unspecified (ICD-10 - J06.9) Ashley is a pleasant 74-year-old female with past medical history of GERD, essential hypertension, fibromyalgia, hyperlipidemia, anxiety, insomnia, overweight, migraines and exertional dyspnea who presents to the office today for headaches and intermittent dizziness along with nausea. #Upper respiratory infection: Viral swab pending, task created #Nausea: Nausea may or may not be related to buspirone initiation. Patient discontinue this medication at this time. #Anxiety: Continue venlafaxine HCl ER 37.5 mg [...] it any questions/concerns arise. Case discussed with Radha KITCHEN who reviewed the assessment and plan. Chart, medications, labs, vital signs reviewed. Dictation was accomplished with the use of [employer] voice recognition software, which is prone to medical misidentifications and grammatical errors. This are unintentional and the practitioner does try to identify and correct these, but some could still be present. Please do not hesitate to contact practitioner for clarification. 10/31/2024 Fibromyalgia (ICD-10 - M79.7) Ashley is a pleasant 74-year-old female with past medical history of GERD, essential hypertension, fibromyalgia, hyperlipidemia, anxiety, insomnia, overweight, migraines and exertional dyspnea who presents to the office today for headaches and intermittent dizziness along with nausea. #Upper respiratory infection: Viral swab pending, task created #Nausea: Nausea may or may not be related to buspirone initiation. Patient discontinue this medication at this time. #Anxiety: Continue venlafaxine HCl ER 37.5 mg [...] it any questions/concerns arise. Case discussed with Radha KITCHEN who reviewed the assessment and plan. Chart, medications, labs, vital signs reviewed. Dictation was accomplished with the use of [employer] voice recognition software, which is prone to [...] Dictation was accomplished with the use of [employer] voice recognition software, which is prone to [...] Dictation was accomplished with the use of [employer] voice recognition software, which is prone to medical misidentifications and grammatical errors. This are unintentional and the practitioner does try to identify and correct these, but some could still be present. Please do not hesitate to contact practitioner for clarification. 11/22/2024 Shortness of breath (ICD-10 - R06.02) [...] Dictation was accomplished with the use of [employer] voice recognition software, which is prone to medical misidentifications and grammatical errors. This are unintentional and the practitioner does try to identify and correct these, but some could still be present. Please do not hesitate to contact practitioner for clarification. 12/25/2024 Insomnia due to medical condition (ICD-10 - G47.01) #Chronic Exertional Dyspnea : Sees stores [facility] and was prescribed Trelegy Ellipta for her dyspnea. She reports some relief of her congestion symptoms from the nasal solution prescribed by the stores despatch hand. Continued use of Trelegy Ellipta should be [...] Dictation was accomplished with the use of [employer] voice recognition software, prone to medical misidentifications [...] next visit it any questions/concerns arise. 12/25/2024 Primary hypertension (ICD-10 - I10) #Chronic Exertional Dyspnea : Sees [facility] and was prescribed Trelegy Ellipta for her dyspnea. She reports some relief of her congestion symptoms from the nasal solution prescribed by the stores despatch hand. Continued use of Trelegy Ellipta should be [...] Dictation was accomplished with the use of [employer] voice recognition software, prone to medical misidentifications [...] - J45.909) #Chronic Exertional Dyspnea : Sees stores [facility] and was prescribed Trelegy Ellipta for her dyspnea. She reports some relief of her congestion symptoms from the nasal solution prescribed by the stores despatch hand. Continued use of Trelegy Ellipta should be [...] Dictation was accomplished with the use of [employer] voice recognition software, prone to medical misidentifications and grammatical errors. This is unintentional and the practitioner does try to identify and correct these, but some could still be present. Please do not hesitate to contact practitioner for clarification. All questions answered to patients satisfaction. Patient verbalized understanding of diagnosis and treatments explained. To call sooner prior to next visit it any questions/concerns arise. 10/31/2024 Primary hypertension (ICD-10 - I10) Ashley is a pleasant 74-year-old female with past medical history of GERD, essential hypertension, fibromyalgia, hyperlipidemia, anxiety, insomnia, overweight, migraines and exertional dyspnea who presents to the office today for headaches and intermittent dizziness along with nausea. #Upper respiratory infection: Viral swab pending, task created #Nausea: Nausea may or may not be related to buspirone initiation. Patient discontinue this medication at this time. #Anxiety: Continue venlafaxine HCl ER 37.5 mg [...] it any questions/concerns arise. Case discussed with Radha KITCHEN who reviewed the assessment and plan. Chart, medications, labs, vital signs reviewed. Dictation was accomplished with the use of [employer] voice recognition software, which is prone to medical misidentifications and grammatical errors. This are unintentional and the practitioner does try to identify and correct these, but some could still be present. Please do not hesitate to contact practitioner for clarification. 10/25/2024 Prediabetes (ICD-10 - R73.03) Irina is a 74 year old female with a past medical history of anxiety, GERD, essential hypertension, fibromyalgia, insomnia, migraines, and asthma # Asthma: Well controlled. Changed from Breztri to Trelegy with adequate relief. Had PFT. Has nebulizer- using once a week. Sees Dr. Kaiser regularly, next appointment in December. # Anxiety. Reports increase in anxiety and trouble sleeping. Will add buspirone 5 mg po BID PRN. Advised to try buspirone first before taking an Ativan. Continue Effexor QD and Ativan PRN. Refill sent to pharmacy. Mass PAT reviewed. # Constipation. Miralax prn with relief. Stable. # Migraines. Stable. Notes improvement of headaches with botox, last injection was yesterday with next injection scheduled for January. Seeing neurology every 3 months. # JENNIFER. CPAP. Stable. # CKD III. Monitor. Avoid NSAIDS. # Insomnia. Taking CBD gummies, with improvement. Has had difficulty sleeping due to right lower back pain. Discussed trialing Gabapentin 100 mg, to be taken at bedtime, which can potentially hellp the pain as well as increase tiredness. # Hypertension. Is compliant with medications. Blood pressure readings today were 144/82. Advised to monitor blood pressure readings at home as she mentions she tends to have hypertension when visiting provider offices. # GERD. Stable. Currently takes Omeprazole Magnesium 20 mg. # Fibromyalgia: Stable. Continue celexocib 200 mg capsules. Will follow up in 3 months for reassessment of hypertension and right low back pain. Will call patient about the results of MRI of lumbar spine. Case discussed with collaborating physician Luke Stafford who reviewed the assessment and plan. Chart, medications, labs, vital signs reviewed. Dictation was accomplished with the use of [employer] voice recognition software, prone to medical misidentifications and grammatical errors. This is unintentional and the practitioner does try to identify and correct these, but some could still be present. Please do not hesitate to contact practitioner for clarification. All quetsions answered to patients satisfaction. Patient verbalized understanding of diagnosis and treatments explained. To call sooner prior to next visit it any questions/concerns arise. 08/23/2024 Depression screen (ICD-10 - Z13.31) Irina is a 74 year old female with a past medical history of anxiety, GERD, essential hypertension, fibromyalgia, insomnia, migraines, and asthma presenting to the clinic for medicare wellness visit. # R sided sciatica/ lower back pain: Has had lumbar x-rays, with DDD. Has completed 4 weeks of PT with worsening sx. MRI of lumbar spine w.o contrast will be ordered. Will add gabapentin 100 mg po bedtime for pain relief. Informed patient christoph Gabapentin increases feeling of tiredness and is recommended to take at night. # Asthma: Changed from Breztri to Trelegy with adequate relief. Had PFT. Has nebulizer- using BID. Had ALbuterol HFA. Sees Dr. Kaiser. Well controlled. Continues to see Dr. Kaiser. # Anxiety. Continue Effexor for now. Using ativan prn. Requesting refill. Mass PAT reviewed. Educated on not mixing gabapentin and Ativan. # Constipation. Miralax prn with relief. Stable. # Migraines. Seeing neurology, getting Botox. Notes improvement of headaches with botox. Stable. # JENNIFER. CPAP. Stable. # CKD III. Monitor. Avoid NSAIDS. # Insomnia. Taking CBD gummies, with improvement. Has had difficulty sleeping due to right lower back pain. Discussed trialing Gabapentin 100 mg, to be taken at bedtime, which can potentially hellp the pain as well as increase tiredness. # Hypertension. Is compliant with medications. Blood pressure readings today were 162/100 and 160/100 respectively. Advised to monitor blood pressure readings at home as she mentions she tends to have hypertension when visiting provider offices. # GERD. Stable. Currently takes Omeprazole Magnesium 20 mg. # Fibromyalgia: Stable. Currently not taking celexocib 200 mg capsules. # Vaccines. Due for flu shot # Screenings: UTD Patient seen and examined. Comprehensive discussion was done on the following. 1. Nutrition: It is important to follow a healthy diet based on lots of vegetables and legumes and good fat. Avoid processed food and processed carbohydrates. Learn to prepare your own meals. Learn to read labels and avoid high fructose corn syrup, processed chemicals added to increase shelf life and preprepared meals. Avoid fast foods. Learn to eat slowly and plan meals for a week. Try to count calories and be mindful off daily calorie intake. Get into the habit of keeping an eye on your weight by using an appropriate scale. Learn to log exercise and discussed fitness Apps like [email or web address] which can help keep log off calories taken versus calories burned. Local food should be preferred. Discussed Dirty Dozen Versus Clean Fifteen. Discussed healthy supplements like fish oil, Tumeric, Curcumin, Melatonin, Resveratrol, Probiotics, Vitamin-D, Alpha-Lipoic acid, Vitamin-D and coconut oil. 2. It is important to exercise regularly. Is a good habit to walk at least 30-45 minutes a day. Gentle weightlifting with standard precautions to protect the back. Finding activity like cycling or hiking and get into the habit of engaging in it. Stretching before and after the exercises important. It is also important to contact me if there are any problems like shortness of breath, chest pain, back pain and joint or muscle pain associated with the exercise. 3. Discussed age appropriate screening guidelines. Colonoscopy needs to start at age 50 with stool for occult blood as appropriate. There is a new test that can test for genetic abnormalities in the stool sample. This would not replace a colonoscopy but could be used as a screening tool for patients who do not want a colonoscopy. We discussed the importance of early detection of colon cancer. 4. Discussed current guidelines with respect to breast examination, mammogram and pap smear for early detection of breast and cervical cancer. Patient advised to follow up with these appointments. 5. Discussed safe driving and no use of smart phone while driving 6. Age-appropriate immunizations were discussed. A tetanus booster is needed every 10 years. Flu vaccine is recommended every year just before the start of the flu season. Shingles vaccine is recommended after age 50 but not all insurances cover it.Pneumonia vaccine is given after age 65 unless there are certain comorbidities for which it is started earlier. 7. Diagnostic labs were discussed. These could include CBC CMP and lipids with fasting blood glucose and insulin levels. Vitamin D and hemoglobin A1c testing might be appropriate. Will follow up in 2 months for reassessment of hypertension and right low back pain. Will call patient about the results of MRI of lumbar spine. Case discussed with collaborating physician Merlin Stafford who reviewed the assessment and plan. Chart, medications, labs, vital signs reviewed. Dictation was accomplished with the use of [employer] voice recognition software, prone to medical misidentifications and grammatical errors. This is unintentional and the practitioner does try to identify and correct these, but some could still be present. Please do not hesitate to contact practitioner for clarification. All quetsions answered to patients satisfaction. Patient verbalized understanding of diagnosis and treatments explained. To call sooner prior to next visit it any questions/concerns arise. 05/29/2024 Anxiety (ICD-10 - F41.9) # Sciatica: Will order lumbar x-rays. COnsider PT/MRI # Asthma: Changed from Breztri to Trelegy with adequate relief. Had PFT. Has nebulizer- using BID. Had ALbuterol HFA. Sees Dr. Kaiser # Anxiety.Continue Effexor for now. Will talk about dc'ing Remeron due to increased hunger affect. Using ativan prn # Constipation. MIralax daily with relief # Migraines. working with neurology reports headaches now assocatied with right ear pain. On Propranolol 20 mg po neal. Following up next week. Confirmed JENNIFER. Got Botox with improvement # JENNIFER. Referred to pulm. # CKD III. Monitor. Avoid NSAIDS # Insomnia. Taking CBD gummies, with improvement. Case discussed with collaborating physician Merlin Stafford who reviewed the assessment and plan. Chart, medications, labs, vital signs reviewed. Dictation was accomplished with the use of [employer] voice recognition software, prone to medical misidentifications and grammatical errors. This is unintentional and the practitioner does try to identify and correct these, but some could still be present. Please do not hesitate to contact practitioner for clarification. All quetsions answered to patients satisfaction. Patient verbalized understanding of diagnosis and treatments explained. To call sooner prior to next visit it any questions/concerns arise. 05/29/2024 Insomnia due to medical condition (ICD-10 - G47.01) # Sciatica: Will order lumbar x-rays. COnsider PT/MRI # Asthma: Changed from Breztri to Trelegy with adequate relief. Had PFT. Has nebulizer- using BID. Had ALbuterol HFA. Sees Dr. Kaiser # Anxiety.Continue Effexor for now. Will talk about dc'ing Remeron due to increased hunger affect. Using ativan prn # Constipation. MIralax daily with relief # Migraines. working with neurology reports headaches now assocatied with right ear pain. On Propranolol 20 mg po neal. Following up next week. Confirmed JENNIFER. Got Botox with improvement # JENNIFER. Referred to pulm. # CKD III. Monitor. Avoid NSAIDS # Insomnia. Taking CBD gummies, with improvement. Case discussed with collaborating physician Merlin Stafford who reviewed the assessment and plan. Chart, medications, labs, vital signs reviewed. Dictation was accomplished with the use of [employer] voice recognition software, prone to medical misidentifications and grammatical errors. This is unintentional and the practitioner does try to identify and correct these, but some could still be present. Please do not hesitate to contact practitioner for clarification. All quetsions answered to patients satisfaction. Patient verbalized understanding of diagnosis and treatments explained. To call sooner prior to next visit it any questions/concerns arise. 08/23/2024 Encounter for screening for other disorder (ICD-10 - Z13.89) Irina is a 74 year old female with a past medical history of anxiety, GERD, essential hypertension, fibromyalgia, insomnia, migraines, and asthma presenting to the clinic for medicare wellness visit. # R sided sciatica/ lower back pain: Has had lumbar x-rays, with DDD. Has completed 4 weeks of PT with worsening sx. MRI of lumbar spine w.o contrast will be ordered. Will add gabapentin 100 mg po bedtime for pain relief. Informed patient christoph Gabapentin increases feeling of tiredness and is recommended to take at night. # Asthma: Changed from Breztri to Trelegy with adequate relief. Had PFT. Has nebulizer- using BID. Had ALbuterol HFA. Sees Dr. Kaiser. Well controlled. Continues to see Dr. Kaiser. # Anxiety. Continue Effexor for now. Using ativan prn. Requesting refill. Mass PAT reviewed. Educated on not mixing gabapentin and Ativan. # Constipation. Miralax prn with relief. Stable. # Migraines. Seeing neurology, getting Botox. Notes improvement of headaches with botox. Stable. # JENNIFER. CPAP. Stable. # CKD III. Monitor. Avoid NSAIDS. # Insomnia. Taking CBD gummies, with improvement. Has had difficulty sleeping due to right lower back pain. Discussed trialing Gabapentin 100 mg, to be taken at bedtime, which can potentially hellp the pain as well as increase tiredness. # Hypertension. Is compliant with medications. Blood pressure readings today were 162/100 and 160/100 respectively. Advised to monitor blood pressure readings at home as she mentions she tends to have hypertension when visiting provider offices. # GERD. Stable. Currently takes Omeprazole Magnesium 20 mg. # Fibromyalgia: Stable. Currently not taking celexocib 200 mg capsules. # Vaccines. Due for flu shot # Screenings: UTD Patient seen and examined. Comprehensive discussion was done on the following. 1. Nutrition: It is important to follow a healthy diet based on lots of vegetables and legumes and good fat. Avoid processed food and processed carbohydrates. Learn to prepare your own meals. Learn to read labels and avoid high fructose corn syrup, processed chemicals added to increase shelf life and preprepared meals. Avoid fast foods. Learn to eat slowly and plan meals for a week. Try to count calories and be mindful off daily calorie intake. Get into the habit of keeping an eye on your weight by using an appropriate scale. Learn to log exercise and discussed fitness Apps like [email or web address] which can help keep log off calories taken versus calories burned. Local food should be preferred. Discussed Dirty Dozen Versus Clean Fifteen. Discussed healthy supplements like fish oil, Tumeric, Curcumin, Melatonin, Resveratrol, Probiotics, Vitamin-D, Alpha-Lipoic acid, Vitamin-D and coconut oil. 2. It is important to exercise regularly. Is a good habit to walk at least 30-45 minutes a day. Gentle weightlifting with standard precautions to protect the back. Finding activity like cycling or hiking and get into the habit of engaging in it. Stretching before and after the exercises important. It is also important to contact me if there are any problems like shortness of breath, chest pain, back pain and joint or muscle pain associated with the exercise. 3. Discussed age appropriate screening guidelines. Colonoscopy needs to start at age 50 with stool for occult blood as appropriate. There is a new test that can test for genetic abnormalities in the stool sample. This would not replace a colonoscopy but could be used as a screening tool for patients who do not want a colonoscopy. We discussed the importance of early detection of colon cancer. 4. Discussed current guidelines with respect to breast examination, mammogram and pap smear for early detection of breast and cervical cancer. Patient advised to follow up with these appointments. 5. Discussed safe driving and no use of smart phone while driving 6. Age-appropriate immunizations were discussed. A tetanus booster is needed every 10 years. Flu vaccine is recommended every year just before the start of the flu season. Shingles vaccine is recommended after age 50 but not all insurances cover it.Pneumonia vaccine is given after age 65 unless there are certain comorbidities for which it is started earlier. 7. Diagnostic labs were discussed. These could include CBC CMP and lipids with fasting blood glucose and insulin levels. Vitamin D and hemoglobin A1c testing might be appropriate. Will follow up in 2 months for reassessment of hypertension and right low back pain. Will call patient about the results of MRI of lumbar spine. Case discussed with collaborating physician Merlin Stafford who reviewed the assessment and plan. Chart, medications, labs, vital signs reviewed. Dictation was accomplished with the use of [employer] voice recognition software, prone to medical misidentifications and grammatical errors. This is unintentional and the practitioner does try to identify and correct these, but some could still be present. Please do not hesitate to contact practitioner for clarification. All quetsions answered to patients satisfaction. Patient verbalized understanding of diagnosis and treatments explained. To call sooner prior to next visit it any questions/concerns arise. 10/25/2024 Anxiety (ICD-10 - F41.9) Irina is a 74 year old female with a past medical history of anxiety, GERD, essential hypertension, fibromyalgia, insomnia, migraines, and asthma # Asthma: Well controlled. Changed from Breztri to Trelegy with adequate relief. Had PFT. Has nebulizer- using once a week. Sees Dr. Kaiser regularly, next appointment in December. # Anxiety. Reports increase in anxiety and trouble sleeping. Will add buspirone 5 mg po BID PRN. Advised to try buspirone first before taking an Ativan. Continue Effexor QD and Ativan PRN. Refill sent to pharmacy. Mass PAT reviewed. # Constipation. Miralax prn with relief. Stable. # Migraines. Stable. Notes improvement of headaches with botox, last injection was yesterday with next injection scheduled for January. Seeing neurology every 3 months. # JENNIFER. CPAP. Stable. # CKD III. Monitor. Avoid NSAIDS. # Insomnia. Taking CBD gummies, with improvement. Has had difficulty sleeping due to right lower back pain. Discussed trialing Gabapentin 100 mg, to be taken at bedtime, which can potentially hellp the pain as well as increase tiredness. # Hypertension. Is compliant with medications. Blood pressure readings today were 144/82. Advised to monitor blood pressure readings at home as she mentions she tends to have hypertension when visiting provider offices. # GERD. Stable. Currently takes Omeprazole Magnesium 20 mg. # Fibromyalgia: Stable. Continue celexocib 200 mg capsules. Will follow up in 3 months for reassessment of hypertension and right low back pain. Will call patient about the results of MRI of lumbar spine. Case discussed with collaborating physician Luke Stafford who reviewed the assessment and plan. Chart, medications, labs, vital signs reviewed. Dictation was accomplished with the use of [employer] voice recognition software, prone to medical misidentifications and grammatical errors. This is unintentional and the practitioner does try to identify and correct these, but some could still be present. Please do not hesitate to contact practitioner for clarification. All quetsions answered to patients satisfaction. Patient verbalized understanding of diagnosis and treatments explained. To call sooner prior to next visit it any questions/concerns arise. 10/31/2024 Anxiety (ICD-10 - F41.9) Ashley is a pleasant 74-year-old female with past medical history of GERD, essential hypertension, fibromyalgia, hyperlipidemia, anxiety, insomnia, overweight, migraines and exertional dyspnea who presents to the office today for headaches and intermittent dizziness along with nausea. #Upper respiratory infection: Viral swab pending, task created #Nausea: Nausea may or may not be related to buspirone initiation. Patient discontinue this medication at this time. #Anxiety: Continue venlafaxine HCl ER 37.5 mg [...] it any questions/concerns arise. Case discussed with Radha KITCHEN who reviewed the assessment and plan. Chart, medications, labs, vital signs reviewed. Dictation was accomplished with the use of [employer] voice recognition software, which is prone to medical misidentifications and grammatical errors. This are unintentional and the practitioner does try to identify and correct these, but some could still be present. Please do not hesitate to contact practitioner for clarification. 12/25/2024 Fibromyalgia (ICD-10 - M79.7) #Chronic Exertional Dyspnea : Sees stores despatch hand and was prescribed Trelegy Ellipta for her dyspnea. She reports some relief of her congestion symptoms from the nasal solution prescribed by the stores despatch hand. Continued use of Trelegy Ellipta should be [...] Dictation was accomplished with the use of [employer] voice recognition software, prone to medical misidentifications and grammatical errors. This is unintentional and the practitioner does try to identify and correct these, but some could still be present. Please do not hesitate to contact practitioner for clarification. All questions answered to patients satisfaction. Patient verbalized understanding of diagnosis and treatments explained. To call sooner prior to next visit it any questions/concerns arise. 11/22/2024 Anxiety (ICD-10 - F41.9) Irina is [...] Dictation was accomplished with the use of [employer] voice recognition software, which is prone to [...] Dictation was accomplished with the use of [employer] voice recognition software, which is prone to medical misidentifications and grammatical errors. This are unintentional and the practitioner does try to identify and correct these, but some could still be present. Please do not hesitate to contact practitioner for clarification. 10/31/2024 Headache, unspecified (ICD-10 - R51.9) Ashley is a pleasant 74-year-old female with past medical history of GERD, essential hypertension, fibromyalgia, hyperlipidemia, anxiety, insomnia, overweight, migraines and exertional dyspnea who presents to the office today for headaches and intermittent dizziness along with nausea. #Upper respiratory infection: Viral swab pending, task created #Nausea: Nausea may or may not be related to buspirone initiation. Patient discontinue this medication at this time. #Anxiety: Continue venlafaxine HCl ER 37.5 mg [...] it any questions/concerns arise. Case discussed with Radha KITCHEN who reviewed the assessment and plan. Chart, medications, labs, vital signs reviewed. Dictation was accomplished with the use of [employer] voice recognition software, which is prone to medical misidentifications and grammatical errors. This are unintentional and the practitioner does try to identify and correct these, but some could still be present. Please do not hesitate to contact practitioner for clarification. 10/25/2024 Insomnia due to medical condition (ICD-10 - G47.01) Irina is a 74 year old female with a past medical history of anxiety, GERD, essential hypertension, fibromyalgia, insomnia, migraines, and asthma # Asthma: Well controlled. Changed from Breztri to Trelegy with adequate relief. Had PFT. Has nebulizer- using once a week. Sees Dr. Kaiser regularly, next appointment in December. # Anxiety. Reports increase in anxiety and trouble sleeping. Will add buspirone 5 mg po BID PRN. Advised to try buspirone first before taking an Ativan. Continue Effexor QD and Ativan PRN. Refill sent to pharmacy. Mass PAT reviewed. # Constipation. Miralax prn with relief. Stable. # Migraines. Stable. Notes improvement of headaches with botox, last injection was yesterday with next injection scheduled for January. Seeing neurology every 3 months. # JENNIFER. CPAP. Stable. # CKD III. Monitor. Avoid NSAIDS. # Insomnia. Taking CBD gummies, with improvement. Has had difficulty sleeping due to right lower back pain. Discussed trialing Gabapentin 100 mg, to be taken at bedtime, which can potentially hellp the pain as well as increase tiredness. # Hypertension. Is compliant with medications. Blood pressure readings today were 144/82. Advised to monitor blood pressure readings at home as she mentions she tends to have hypertension when visiting provider offices. # GERD. Stable. Currently takes Omeprazole Magnesium 20 mg. # Fibromyalgia: Stable. Continue celexocib 200 mg capsules. Will follow up in 3 months for reassessment of hypertension and right low back pain. Will call patient about the results of MRI of lumbar spine. Case discussed with collaborating physician Luke Stafford who reviewed the assessment and plan. Chart, medications, labs, vital signs reviewed. Dictation was accomplished with the use of [employer] voice recognition software, prone to medical misidentifications and grammatical errors. This is unintentional and the practitioner does try to identify and correct these, but some could still be present. Please do not hesitate to contact practitioner for clarification. All quetsions answered to patients satisfaction. Patient verbalized understanding of diagnosis and treatments explained. To call sooner prior to next visit it any questions/concerns arise. 08/23/2024 Obesity (BMI 30-39.9) (ICD-10 - E66.9) Irina is a 74 year old female with a past medical history of anxiety, GERD, essential hypertension, fibromyalgia, insomnia, migraines, and asthma presenting to the clinic for medicare wellness visit. # R sided sciatica/ lower back pain: Has had lumbar x-rays, with DDD. Has completed 4 weeks of PT with worsening sx. MRI of lumbar spine w.o contrast will be ordered. Will add gabapentin 100 mg po bedtime for pain relief. Informed patient christoph Gabapentin increases feeling of tiredness and is recommended to take at night. # Asthma: Changed from Breztri to Trelegy with adequate relief. Had PFT. Has nebulizer- using BID. Had ALbuterol HFA. Sees Dr. Kaiser. Well controlled. Continues to see Dr. Kaiser. # Anxiety. Continue Effexor for now. Using ativan prn. Requesting refill. Mass PAT reviewed. Educated on not mixing gabapentin and Ativan. # Constipation. Miralax prn with relief. Stable. # Migraines. Seeing neurology, getting Botox. Notes improvement of headaches with botox. Stable. # JENNIFER. CPAP. Stable. # CKD III. Monitor. Avoid NSAIDS. # Insomnia. Taking CBD gummies, with improvement. Has had difficulty sleeping due to right lower back pain. Discussed trialing Gabapentin 100 mg, to be taken at bedtime, which can potentially hellp the pain as well as increase tiredness. # Hypertension. Is compliant with medications. Blood pressure readings today were 162/100 and 160/100 respectively. Advised to monitor blood pressure readings at home as she mentions she tends to have hypertension when visiting provider offices. # GERD. Stable. Currently takes Omeprazole Magnesium 20 mg. # Fibromyalgia: Stable. Currently not taking celexocib 200 mg capsules. # Vaccines. Due for flu shot # Screenings: UTD Patient seen and examined. Comprehensive discussion was done on the following. 1. Nutrition: It is important to follow a healthy diet based on lots of vegetables and legumes and good fat. Avoid processed food and processed carbohydrates. Learn to prepare your own meals. Learn to read labels and avoid high fructose corn syrup, processed chemicals added to increase shelf life and preprepared meals. Avoid fast foods. Learn to eat slowly and plan meals for a week. Try to count calories and be mindful off daily calorie intake. Get into the habit of keeping an eye on your weight by using an appropriate scale. Learn to log exercise and discussed fitness Apps like [email or web address] which can help keep log off calories taken versus calories burned. Local food should be preferred. Discussed Dirty Dozen Versus Clean Fifteen. Discussed healthy supplements like fish oil, Tumeric, Curcumin, Melatonin, Resveratrol, Probiotics, Vitamin-D, Alpha-Lipoic acid, Vitamin-D and coconut oil. 2. It is important to exercise regularly. Is a good habit to walk at least 30-45 minutes a day. Gentle weightlifting with standard precautions to protect the back. Finding activity like cycling or hiking and get into the habit of engaging in it. Stretching before and after the exercises important. It is also important to contact me if there are any problems like shortness of breath, chest pain, back pain and joint or muscle pain associated with the exercise. 3. Discussed age appropriate screening guidelines. Colonoscopy needs to start at age 50 with stool for occult blood as appropriate. There is a new test that can test for genetic abnormalities in the stool sample. This would not replace a colonoscopy but could be used as a screening tool for patients who do not want a colonoscopy. We discussed the importance of early detection of colon cancer. 4. Discussed current guidelines with respect to breast examination, mammogram and pap smear for early detection of breast and cervical cancer. Patient advised to follow up with these appointments. 5. Discussed safe driving and no use of smart phone while driving 6. Age-appropriate immunizations were discussed. A tetanus booster is needed every 10 years. Flu vaccine is recommended every year just before the start of the flu season. Shingles vaccine is recommended after age 50 but not all insurances cover it.Pneumonia vaccine is given after age 65 unless there are certain comorbidities for which it is started earlier. 7. Diagnostic labs were discussed. These could include CBC CMP and lipids with fasting blood glucose and insulin levels. Vitamin D and hemoglobin A1c testing might be appropriate. Will follow up in 2 months for reassessment of hypertension and right low back pain. Will call patient about the results of MRI of lumbar spine. Case discussed with collaborating physician Merlin Stafford who reviewed the assessment and plan. Chart, medications, labs, vital signs reviewed. Dictation was accomplished with the use of [employer] voice recognition software, prone to medical misidentifications and grammatical errors. This is unintentional and the practitioner does try to identify and correct these, but some could still be present. Please do not hesitate to contact practitioner for clarification. All quetsions answered to patients satisfaction. Patient verbalized understanding of diagnosis and treatments explained. To call sooner prior to next visit it any questions/concerns arise. 05/29/2024 Sciatic nerve pain, unspecified laterality (ICD-10 - M54.30) # Sciatica: Will order lumbar x-rays. COnsider PT/MRI # Asthma: Changed from Breztri to Trelegy with adequate relief. Had PFT. Has nebulizer- using BID. Had ALbuterol HFA. Sees Dr. Kaiser # Anxiety.Continue Effexor for now. Will talk about dc'ing Remeron due to increased hunger affect. Using ativan prn # Constipation. MIralax daily with relief # Migraines. working with neurology reports headaches now assocatied with right ear pain. On Propranolol 20 mg po neal. Following up next week. Confirmed JENNIFER. Got Botox with improvement # JENNIFER. Referred to pulm. # CKD III. Monitor. Avoid NSAIDS # Insomnia. Taking CBD gummies, with improvement. Case discussed with collaborating physician Merlin Stafford who reviewed the assessment and plan. Chart, medications, labs, vital signs reviewed. Dictation was accomplished with the use of [employer] voice recognition software, prone to medical misidentifications and grammatical errors. This is unintentional and the practitioner does try to identify and correct these, but some could still be present. Please do not hesitate to contact practitioner for clarification. All quetsions answered to patients satisfaction. Patient verbalized understanding of diagnosis and treatments explained. To call sooner prior to next visit it any questions/concerns arise. 08/23/2024 Advanced care planning/butch calle discussion (ICD-10 - Z71.89) Irina is a 74 year old female with a past medical history of anxiety, GERD, essential hypertension, fibromyalgia, insomnia, migraines, and asthma presenting to the clinic for medicare wellness visit. # R sided sciatica/ lower back pain: Has had lumbar x-rays, with DDD. Has completed 4 weeks of PT with worsening sx. MRI of lumbar spine w.o contrast will be ordered. Will add gabapentin 100 mg po bedtime for pain relief. Informed patient christoph Gabapentin increases feeling of tiredness and is recommended to take at night. # Asthma: Changed from Breztri to Trelegy with adequate relief. Had PFT. Has nebulizer- using BID. Had ALbuterol HFA. Sees Dr. Kaiser. Well controlled. Continues to see Dr. Kaiser. # Anxiety. Continue Effexor for now. Using ativan prn. Requesting refill. [place] PAT reviewed. Educated on not mixing gabapentin and Ativan. # Constipation. Miralax prn with relief. Stable. # Migraines. Seeing neurology, getting Botox. Notes improvement of headaches with botox. Stable. # JENNIFER. CPAP. Stable. # CKD III. Monitor. Avoid NSAIDS. # Insomnia. Taking CBD gummies, with improvement. Has had difficulty sleeping due to right lower back pain. Discussed trialing Gabapentin 100 mg, to be taken at bedtime, which can potentially hellp the pain as well as increase tiredness. # Hypertension. Is compliant with medications. Blood pressure readings today were 162/100 and 160/100 respectively. Advised to monitor blood pressure readings at home as she mentions she tends to have hypertension when visiting provider offices. # GERD. Stable. Currently takes Omeprazole Magnesium 20 mg. # Fibromyalgia: Stable. Currently not taking celexocib 200 mg capsules. # Vaccines. Due for flu shot # Screenings: UTD Patient seen and examined. Comprehensive discussion was done on the following. 1. Nutrition: It is important to follow a healthy diet based on lots of vegetables and legumes and good fat. Avoid processed food and processed carbohydrates. Learn to prepare your own meals. Learn to read labels and avoid high fructose corn syrup, processed chemicals added to increase shelf life and preprepared meals. Avoid fast foods. Learn to eat slowly and plan meals for a week. Try to count calories and be mindful off daily calorie intake. Get into the habit of keeping an eye on your weight by using an appropriate scale. Learn to log exercise and discussed fitness Apps like [employer] which can help keep log off calories taken versus calories burned. Local food should be preferred. Discussed Dirty Dozen Versus Clean Fifteen. Discussed healthy supplements like fish oil, Tumeric, Curcumin, Melatonin, Resveratrol, Probiotics, Vitamin-D, Alpha-Lipoic acid, Vitamin-D and coconut oil. 2. It is important to exercise regularly. Is a good habit to walk at least 30-45 minutes a day. Gentle weightlifting with standard precautions to protect the back. Finding activity like cycling or hiking and get into the habit of engaging in it. Stretching before and after the exercises important. It is also important to contact me if there are any problems like shortness of breath, chest pain, back pain and joint or muscle pain associated with the exercise. 3. Discussed age appropriate screening guidelines. Colonoscopy needs to start at age 50 with stool for occult blood as appropriate. There is a new test that can test for genetic abnormalities in the stool sample. This would not replace a colonoscopy but could be used as a screening tool for patients who do not want a colonoscopy. We discussed the importance of early detection of colon cancer. 4. Discussed current guidelines with respect to breast examination, mammogram and pap smear for early detection of breast and cervical cancer. Patient advised to follow up with these appointments. 5. Discussed safe driving and no use of smart phone while driving 6. Age-appropriate immunizations were discussed. A tetanus booster is needed every 10 years. Flu vaccine is recommended every year just before the start of the flu season. Shingles vaccine is recommended after age 50 but not all insurances cover it.Pneumonia vaccine is given after age 65 unless there are certain comorbidities for which it is started earlier. 7. Diagnostic labs were discussed. These could include CBC CMP and lipids with fasting blood glucose and insulin levels. Vitamin D and hemoglobin A1c testing might be appropriate. Will follow up in 2 months for reassessment of hypertension and right low back pain. Will call patient about the results of MRI of lumbar spine. Case discussed with collaborating physician Merlin Stafford who reviewed the assessment and plan. Chart, medications, labs, vital signs reviewed. Dictation was accomplished with the use of [employer] voice recognition software, prone to medical misidentifications and grammatical errors. This is unintentional and the practitioner does try to identify and correct these, but some could still be present. Please do not hesitate to contact practitioner for clarification. All quetsions answered to patients satisfaction. Patient verbalized understanding of diagnosis and treatments explained. To call sooner prior to next visit it any questions/concerns arise. 11/22/2024 Dizzy (ICD-10 - R42) Irina is [...] Dictation was accomplished with the use of [employer] voice recognition software, which is prone to medical misidentifications and grammatical errors. This are unintentional and the practitioner does try to identify and correct these, but some could still be present. Please do not hesitate to contact practitioner for clarification. 10/31/2024 Amarjit (ICD-10 - R42) Ashley is a pleasant 74-year-old female with past medical history of GERD, essential hypertension, fibromyalgia, hyperlipidemia, anxiety, insomnia, overweight, migraines and exertional dyspnea who presents to the office today for headaches and intermittent dizziness along with nausea. #Upper respiratory infection: Viral swab pending, task created #Nausea: Nausea may or may not be related to buspirone initiation. Patient discontinue this medication at this time. #Anxiety: Continue venlafaxine HCl ER 37.5 mg [...] it any questions/concerns arise. Case discussed with Radha KITCHEN who reviewed the assessment and plan. Chart, medications, labs, vital signs reviewed. Dictation was accomplished with the use of [employer] voice recognition software, which is prone to medical misidentifications and grammatical errors. This are unintentional and the practitioner does try to identify and correct these, but some could still be present. Please do not hesitate to contact practitioner for clarification. PLAN OF TREATMENT Pending Test Test Name Order Date Barium Swallow 10/20/2023 Mammogram 10/13/2022 X ray : Spines, lumbar 2 views X ray : Chest with 2 views 02/10/2023 Mycoplasma pneu. IgG/IgM Abs 08/16/2023 MRI : Abdomen with Contrast 01/31/2024 MRI : Abdomen with and without Contrast 02/01/2024 MRI : Brain without Contrast 11/22/2024 MRI : Lumbar without contrast 08/23/2024 ANTITHYROGLOBULIN AB 11/22/2024 CRP, HIGH SENSITIVITY 05/29/2024 LEGIONELLA ANTIGEN 08/16/2023 STREP PNEUMONIAE ANTIGEN, URINE 08/16/20 CT Neck Soft Tissue w/o Contrast 023 LIPID PANEL, STANDARD 11/22/2024 LIPID PANEL, STANDARD 05/29/2024 LIPID PANEL, STANDARD 05/16/2023 LIPID PANEL, STANDARD 06/10/2022 COMPREHENSIVE METABOLIC PANEL 05/16/2023 COMPREHENSIVE METABOLIC PANEL 06/10/2022 COMPREHENSIVE METABOLIC PANEL 05/29/2024 COMPREHENSIVE METABOLIC PANEL 10/25/2024 COMPREHENSIVE METABOLIC PANEL 11/22/2024 COMPREHENSIVE METABOLIC PANEL 01/10/2023 CBC (INCLUDES DIFF/PLT) 01/10/2023 CBC (INCLUDES DIFF/PLT) 11/22/2024 CBC (INCLUDES DIFF/PLT) 10/25/2024 CBC (INCLUDES DIFF/PLT) 05/29/2024 CBC (INCLUDES DIFF/PLT) 06/10/2022 CBC (INCLUDES DIFF/PLT) 05/16/2023 URINALYSIS, COMPLETE 05/16/2023 URINALYSIS, COMPLETE 06/10/2022 URINALYSIS, COMPLETE 05/29/2024 HEMOGLOBIN A1c 05/29/2024 HEMOGLOBIN A1c 10/25/2024 HEMOGLOBIN A1c 05/16/2023 LIPASE 11/22/2024 LIPASE 01/10/2023 AMYLASE 01/10/2023 AMYLASE 11/22/2024 VITAMIN B12 05/29/2024 VITAMIN B12 11/22/2024 T4, FREE 05/29/2024 TSH 05/29/2024 TSH 05/16/2023 T3, FREE 05/29/2024 VITAMIN D,25-OH,TOTAL,IA 05/29/2024 VITAMIN D,25-OH,TOTAL,IA 05/16/2023 VITAMIN D,25-OH,TOTAL,IA 06/10/2022 Next Appt Details Provider Name:MARCIE ALBRECHT, 03/12/2025 08:45:00 AM, [address], [place], [address], Insurance Providers Payer Name Payer Address Payer Phone Subscriber Number Group Number Insured Name Patient Relationship to Insured Coverage Start Date Coverage End Date [employer] Medicare Advantage [address] [place] [address] [phone] [id number] IRINA BOONE Self - patient is the insured MEDICAL (GENERAL) HISTORY Medical History History ICD Code GERD without esophagitis K21.9 Essential (primary) hypertension I10 Fibromyalgia M79.7 Hyperlipidemia, mild E78.5 Anxiety F41.9 Insomnia 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
--- OUTSIDE RECORDS SUMMARY | 2025-02-12 15:56 | XMS_ITS | Data Portability ---
Author Organization [place] - [facility], Allergy Address [address] [address] Care Team Providers Care Door Slinger Name Role Phone ANDI WEST Primary Care Provider [phone] Assessment Encounter Date Assessment Date Assessment LastModified by Organization Details LastModified Time 01/08/2025 01/08/2025 74-year-old female presents for evaluation of possible sinus infection. Otologic exam is completely unremarkable today without infection or fluid. Anterior rhinoscopy shows normal nasal mucosa without purulent drainage and widely patent nares. No signs of polyp. She does have tenderness to palpation of the right TMJ with some crepitus. More than likely she has some bruxism causing TMJ arthralgia. This could be exacerbating her migraine symptoms. I have recommended she speak with her dentist about possible nightguard. She should also continue to follow with her neurologist for migraine management. Though there is no sign of polyps or sinus infection on examination would like to get a CT scan of the sinus to rule out polyps. She has had MRI of her brain with her neurologist which was unremarkable. Will return for reevaluation once CT scan results are available. All questions were answered. Not available 01/08/2025 15:28:15 Plan of Treatment Reminders Order Date Submit Date Provider Last Modified By Organization Details Last Modified Time Details Appointments Test Results 15 2024 10:15A Modesta GLASER PA-C Not available Not available Not available Lab None recorded. Referral None recorded. Procedures None recorded. Surgeries None recorded. Imaging CT, sinuses, w/o contrast 2024 025 [email or web address] [facility], [address], [place], [address], 01/23/2025 11:19:23 Medication Orders None recorded. Patient TargetsNo targets recorded. Patient InstructionsNo instructions recorded. Reason for Referral None Reported. Results Created Date Observation Date Name Description Value Unit Range Abnormal Flag Note LastModifiedBy Organization Detail LastModifiedTime 01/23/20 25 01/17/2025 CT, sinus es, w/o contr ast No observ ation record ed. [email or web address] [facility] [address] [address], [place], [address], 01/22/2025 10:44:52 Result Notes None recorded. Problems Name Problem SNOMED Code Status Onset Date Resolution Date Notes Provider Name and Address Organization Details Recorded Time Bilateral tinnitus 85335552391 02 Active 2021 Tinnitus, bilateral ; Note: Date Diagnosed : 06/01/2022 10:57 AM (H93.13) Not Available [facility] 4 02:35:36 Headache 73718798 Active 2021 Headache, unspecifi ed; Note: Changed from R51 to R51.9 ( 12:07 PM) , Date Diagnosed : 06/01/2022 10:57 AM (R51) Not Available [facility] 4 02:35:35 Sensorine ural hearing loss of bilateral ears 734981455 Active 2021 Sensorine ural hearing loss, bilateral ; Note: Date Diagnosed : 06/09/2022 3:29 PM (H90.3) Not Available [facility] 4 02:35:48 Dizziness and giddiness 334659426 Active 2021 Dizziness and giddiness ; Note: Date Diagnosed : 06/01/2022 11:14 AM (R42) Not Available [facility] 4 02:35:45 Migraine 54106650 Active 2024 TEAGAN GLASER PA-C [address] [place] [address], [place], [address] , [facility] - [facility] 5 15:28:19 Otalgia of right ear 1533881220 Active 2024 TEAGAN GLASER PA-C [address] [facility] 100, [place], [address] , [place] - [facility] [place] 15:28:22 Temporoma ndibular joint disorder 27245836 Active 2024 TEAGAN GLASER PA-C 100 [facility] 100, [place], [address] , [facility] - [facility] 15:28:27 Loss of sense of smell 78243587 Active 2024 TEAGAN GLASER PA-C 100 [facility] 100, [place], [address] , [place] - [facility] 15:28:35 Problem Notes None recorded. Procedures Surgical History None recorded. Imaging Results Imaging Date Name Status LastModified by [facility] Details LastModified Time 01/17/2025 CT, sinuses, w/o contrast [place] [id number] [facility] [address] [facility] [address], [place], [address], 01/22/2025 10:44:52 Procedure Notes None recorded. Medical Equipment None Reported. Medications Name Sig Start Date Stop Date Status Note LastModified by Organization Details LastModified Time celecoxib 200 mg capsule TAKE 1 CAPSULE BY MOUTH ONCE DAILY active Not Available Not Available No t Available amoxicilli n 500 mg capsule active Medicatio n ID: [id number] Br and Name: amoxicill in Send Method: E-Prescri bed Subs Allowed: subs [place] [facility]: amoxicill in Not Available Not Available Not Available atorvastat in 40 mg tablet TAKE 1 TABLET BY MOUTH ONCE DAILY active Not Available Not Available No t Available buspirone 5 mg tablet TAKE 1 TABLET BY MOUTH TWICE DAILY active Not Available Not Available No t Available venlafaxin e ER 37.5 mg capsule,ex tended release 24 hr TAKE 1 CAPSULE BY MOUTH ONCE DAILY WITH FOOD active Not Available Not Available No t Available doxycyclin e hyclate 100 mg capsule active Medicatio n ID: [id number] Br and Name: doxycycli ne hyclate S end Method: E-Prescri bed Subs Allowed: subs OK Medica tionGener icName: doxycycli ne hyclate Not Available Not Available Not Available haloperido l 5 mg tablet active Medicatio n ID: [id number] Br and Name: haloperid ol Send Method: E-Prescri bed Subs Allowed: subs OK Medica tionGener icName: haloperid ol Not Available Not Available Not Available albuterol sulfate 2.5 mg/3 mL (0.083 %) solution for nebulizati on USE 1 VIAL IN NEBULIZER EVERY 6 HOURS NEEDED active Not Available Not Available No t Available trazodone 50 mg tablet active Medicatio n ID: [id number] Br and Name: trazodone Send Method: E-Prescri bed Subs Allowed: subs OK Medica tionGener icName: trazodone Not Available Not Available Not Available azithromyc in 250 mg tablet TAKE 2 TABLETS BY MOUTH ON DAY 1, AND THEN TAKE 1 TABLET BY MOUTH ONCE A DAY ON DAY 2 THROUGH DAY 5 active Not Available Not Available No t Available meloxicam 15 mg tablet active Medicatio n ID: [id number] Br and Name: meloxicam Send Method: E-Prescri bed Subs Allowed: subs OK Medica tionGener icName: meloxicam Not Available Not Available Not Available prednisone 20 mg tablet active Medicatio n ID: [id number] Br and Name: prednison e Send Method: E-Prescri bed Subs Allowed: subs OK Medica tionGener icName: prednison e Not Available Not Available Not Available ondansetro n 8 mg disintegra ting tablet TAKE 1 TABLET EVERY 8 HOURS ( NEEDED NAUSEA AND VOMITING) LET TABLET DISSOLVE UNDER TONGUED active Not Available Not Available No t Available losartan 100 mg-hydroch lorothiazi de 25 mg tablet TAKE 1 TABLET BY MOUTH EVERY DAY FOR 30 DAYS active Not Available Not Available No t Available famotidine 20 mg tablet TAKE 1 TABLET BY MOUTH TWICE DAILY active Not Available Not Available No t Available lorazepam 0.5 mg tablet TAKE 1 TABLET BY MOUTH ONCE DAILY NEEDED FOR ANXIETY active Not Available Not Available No t Available mirtazapin e 30 mg tablet TAKE 1 TABLET BY MOUTH ONCE DAILY WITH SUPPER active Not Available Not Available No t Available gabapentin 300 mg capsule active Medicatio n ID: [id number] Br and Name: gabapenti n Send Method: E-Prescri bed Subs Allowed: subs OK Medica tionGener icName: gabapenti n Not Available Not Available Not Available omeprazole 20 mg capsule,de layed release active Medicatio n ID: [id number] Br and Name: omeprazol e Send Method: E-Prescri bed Subs Allowed: subs OK Medica tionGener icName: omeprazol e Not Available Not Available Not Available bisacodyl 5 mg tablet,del ayed release TAKE 2 TABLETS BY MOUTH RIGHT BEFORE YOUR FIRST DOSE OF LIQUID PREP active Not Available Not Available No t Available gabapentin 100 mg capsule TAKE 1 CAPSULE BY MOUTH EVERYDAY AT BEDTIME active Not Available Not Available No t Available albuterol sulfate HFA 90 mcg/actuat ion aerosol inhaler active Medicatio n ID: [id number] Br and Name: albuterol sulfate S end Method: E-Prescri bed Subs Allowed: subs OK Medica tionGener icName: albuterol sulfate Not Available Not Available Not Available ipratropiu m bromide 42 mcg (0.06 %) nasal spray USE 2 SPRAY(S) IN EACH NOSTRIL 3 TO 4 TIMES DAILY NEEDED FOR NASAL CONGESTIO N active Not Available Not Available No t Available amoxicilli n 875 mg-potassi um clavulanat e 125 mg tablet active Medicatio n ID: [id number] Br and Name: amoxicill in-pot clavulana te Send Method: E-Prescri bed Subs Allowed: subs OK Medica tionGener icName: amoxicill in-pot clavulana te Not Available Not Available Not Available escitalopr am 20 mg tablet active Medicatio n ID: [id number] Br and Name: escitalop jordyn oxalate S end Method: E-Prescri bed Subs Allowed: subs OK Medica tionGener icName: escitalop jordyn oxalate Not Available Not Available Not Available losartan 100 mg-hydroch lorothiazi de 12.5 mg tablet TAKE 1 TABLET BY MOUTH ONCE DAILY active Not Available Not Available No t Available peg 3350-elect rolytes 236 gram-22.74 gram-6.74 gram-5.86 gram solution MIX THEN STARTING AT 6 PM THE NIGHT BEFORE YOUR PROCEDURE DRINK 8 OUNCE GLASSES AT YOUR OWN PACE UNTIL RECTALS RUN CLEAR active Not Available Not Available No t Available fluticason e 113 mcg-salmet agustina 14 mcg/actuat ion breath activated powdr INHALE 1 PUFF BY MOUTH TWICE DAILY active Not Available Not Available No t Available Trelegy Ellipta 200 mcg-62.5 mcg-25 mcg powder for inhalation INHALE 1 PUFF BY MOUTH ONCE DAILY active Not Available Not Available No t Available Vitals Date Recorded Body height Body mass index (BMI) Body weight Provider Name and Address Organization Details Last Updated DateTime 01/08/2025 162.56 cm 28 kg/m2 42962.56 g Keiry Mathias [place] - [facility] 01/08/2025 15:05:32 Social History None recorded. Functional Status None recorded. Mental Status None recorded. Family History Nothing Reported. Medical History No medical history recorded. Gynecological HistoryNo gynecological history recorded. Obstetrics History GPAL:G 0 P 0 0 0 0 Past Encounters Encounter ID Performer Location Encounter Start Date Encounter Closed Date Diagnosis/Indication Diagnosis SNOMED-CT Code Diagnosis ICD10 Code Diagnosis Note [id number] TEAGAN GLASER PA-C [facility] [address] [address] 01/08/2025 14:45:58 01/08/2025 15:22:20 Migraine 61551360 G43.909 Otalgia of right ear 427 5118406 H92.01 Temporoman dibular joint disorder 32199701 M26.609 Loss of se nse of smell 46430558 R43.0 Health Concerns Section Related Observation LastModified by Organization Detai ls LastModified Time None Recorded Concern Status LastModified by Organization Details LastModified Time None Recorded Advance Directives Directive None Recorded Payers Insurance Date Sequence Insurance Name Policy Number Policy Phillips Covered Member ID Phillips Member ID Guarantor Name 01/08/2025 1 [facility]: [place]IC[place] BLUE (MEDICARE REPLACEMENT PPO) [id number] Irinajagdish Erazo [id number] Irina Erazo Notes Date Note Type Note Provider Name and Address Organization Details Recorded Time 01/08/2025 text/html 74-year-old female presents for evaluation of possible sinus infection. She states she has had a headache for 4 years. She is seen by neurology for migraine and receives Botox injections which helped somewhat. Recently evaluated by primary care for ear pain and told she had a double ear infection. She was treated with 5 days of antibiotic but is not sure of the name. She was also given a 12-day steroid taper which she could not complete due to side effects. She continues to have pressure just in front of her ear which radiates up into the top of her head and sometimes into her teeth. She does not have any drainage from her nose but does report loss of sense of smell and taste. TEAGAN GLASER PA-C [address] [place] [address], [place], [address], [facility] - [facility] 01/08/2025 15:29:24 OBGyn Episode No OBEpisode recorded.
--- OUTSIDE RECORDS SUMMARY | 2025-02-12 15:56 | XMS_ITS | Encounter Summary ---
Author Organization [facility] Address [address] [place] [address] Care Team Providers Care Timber Cruiser Name Role Phone Nicci Stafford MD Primary Care Provider [phone] Encounter Details Date Type Department Care Team (Late st Contact Info) Description 07/25/2024 9:13 AM EDT Hospital Encounter TH HISTORIC ENCOUNTERS EASTERN CONVERSION ONLY Marita Good MD [address] [place] [phone] Social History Tobacco Use Types Packs/Day [...] kg (172 lb 3.2 oz) 06/11/2024 2:47 PM EDT Height 157.5 cm (5' 2 ) [...] QOL is much better she is watching [employer], able to cook , 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
[2025-02-18 10:13] LABS: Class Alternaria alternata 0; Class Aspergillus fumigatus 0; Class Bermuda Grass 0; Class Birch 0; Class Cat Dander 0; Class Cladosporium herbarum 0; Class Cockroach 0; Class Common Ragweed 0; Class Cottonwood 0; Class Derm. pterony 0; Class Dermatophagoides farinae 0; Class Dog Dander 0; Class Elm 0; Class Maple Box Elder 0; Class Mountain Cedar 0; Class Mouse Urine Protein 0; Class Mugwort 0; Class Oak 0; Class Penicillium crysogenum 0; Class Rough Pigweed 0; Class Sheep Sorrel 0; Class Sycamore 0; Class Timothy Grass 0; Class Walnut Tree 0; Class White Ash 0; Class White Mulberry 0; D001 IgE D pteronyssinus <0.10 kU/L; D002 - IgE D farinae <0.10 kU/L; E001 - IgE Cat Dander <0.10 kU/L; E005 - IgE Dog Dander <0.10 kU/L; E072-IgE Mouse Urine <0.10 kU/L; G002 IgE Bermuda Grass <0.10 kU/L; G006 - IgE Timothy Grass <0.10 kU/L; I006-IgE Cockroach, German <0.10 kU/L; Immunoglobulin E 70 kU/L (<OR=114); M001 IgE Penicillium chrysogen <0.10 kU/L; M002 - IgE Cladosporium herbar <0.10 kU/L; M003 - IgE Aspergillus fumigat <0.10 kU/L; M006 - IgE Alternaria alternat <0.10 kU/L; T001 IgE Maple/Box Elder <0.10 kU/L; T003 IgE Common Silver Birch <0.10 kU/L; T006 - IgE Cedar, Mountain <0.10 kU/L; T007 - IgE Oak, White <0.10 kU/L; T008 IgE Elm, American <0.10 kU/L; T010 - IgE Walnut <0.10 kU/L; T011 - IgE Maple Leaf Sycamore <0.10 kU/L; T014 - IgE Cottonwood <0.10 kU/L; T015 - IgE Ash, White <0.10 kU/L; T070 - IgE White Mulberry <0.10 kU/L; W001 - IgE Ragweed, Short <0.10 kU/L; W006 - IgE Mugwort <0.10 kU/L; W014 IgE Pigweed, Common <0.10 kU/L; W018 IgE Sheep Sorrel <0.10 kU/L
== END 2025-02-12 14:52 | disposition home or self-care (01) ==
LOC: HO.LAB 14:51
PROVIDERS: PCP Internal Medicine; Visit Provider Internal Medicine Pulmonary Disease
DX: Z91.09 Other allergy status, other than to drugs and biological substances (principal)
CPT/HCPCS: 36415; 82785; 86003

== ENCOUNTER 2025-04-23 13:01 | Outpatient (AMB) | payer MEDICARE, SELFPAY ==
--- OUTSIDE RECORDS SUMMARY | 2023-05-18 06:30 | XMS_ITS | Continuity of Care Document ---
Author Organization 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 Role Phone Jose A KITCHEN FACS RVT Akiko VELASCO Unavailable Unavailable Allergies, Adverse Reactions, Alerts Substance Reaction Status Criticality No Known Allergies Active No Inform ation Procedures Procedure Date Office/Outpt E&M Established 10 Mins May Duplex Scan-extrem Veins; Uni/ 23 Varithena, Single Truncal Vein 23 Endovenous Laser, 1st Vein Endovenous laser vein addon Duplex Scan-extrem Veins; Uni/ 23 Endovenous Laser, 1st Vein Offic/outpt E&m Estab 5 Min Trial - Tele medicine Office/Outpt E&M Established 15 Mins Dec Duplex Scan-extrem Veins; Comp Office/Oupt E&M New Pt 30 Mins 23 Advance Directives Directive Yes / No Effective Date File Name No Information Encounters Encounter Description Practice Location Reason(s) For Visit Diagnoses Date Provider Providers Copied on Encounter Office/Outpt E&M Established 10 Mins [facility], [address], [place], [id number], [place] tel:[phone] [facility] Chronic venous htn w oth comp of bilateral low extrm 3 Jose A KITCHEN FACS RVT ROD mAaral. [address], [address], [place], [address], [place]. tel:[phone] Referring Provider: Glory Huff, [address], [place], [address]. tel:[phone] [facility], [address] [place] [address] [address], [place], [id number], [place] tel:[phone] [facility] [place] Encntr for f/u exam aft trtmt for cond oth than malig neoplmPain in left leg 3 Jose A KITCHEN FACS T ROD Amaral. [address] [place] [address], [place] [address], [place], [address], [place]. tel:[phone] Referring Provider: Glory Huff, [address], [place], [address]. tel:[phone] [facility], [address] [place] [address] [address], [place], [id number], [place] tel:[phone] [place] Pain in left leg 3 Jose A KITCHEN FACS T ROD Amaral. [address] [place] [address], [place] [address], [place], [address], [place]. tel:[phone] Referring Provider: Glory Huff, [address], [place], [address]. tel:[phone] [facility], [address] [place] [address] [address], [place], [id number], [place] tel:[phone] [facility] Chronic venous hypertension w inflammation of l low extrem 3 Jose A KITCHEN FACS RVT ROD Amaral. [address] [place] [address], [address], [place], [address], [place]. tel:[phone] Referring Provider: Glory Huff, [address], [place], [address]. tel:[phone] [facility] [place], [address] [place] [address] [address]Mary [place], [id number], [place] tel:[phone] [place] Encntr for f/u exam aft trtmt for cond oth than malig neoplmVenous insufficiency (chronic) (peripheral) 3 Jose A KITCHEN FACS T ROD Amaral. [address], [place] [address], [place], [address], [place]. tel:[phone] Referring Provider: Glory Huff, [address], [place], [address]. tel:[phone] [place] [facility] [place], [address] [place] [address] Dr [address]Mary [place], [id number], [place] tel:[phone] [place] Venous insufficiency (chronic) (peripheral) 3 Jose A KICTHEN FACS Merlin Amaral. [address] [address], [place], [address], [place]. tel:[phone] Referring Provider: Glory Huff, [address], [place], [address]. tel:[phone] Offic/outpt E&m Estab 5 Min Trial - Telemedicine [place] [facility] [place], [address] [place] [address] Dr [address] [address]Mary [place], [id number], [place] tel:[phone] [place] Venous insufficiency (chronic) (peripheral) 3 Jose A KITCHEN FACS Merlin Amaral. [address], [facility] [address], [place], [address], [place]. tel:[phone] Referring Provider: Glory Huff, [address], [facility] [place], [address]. tel:[phone] Office/Outpt E&M Established 15 Mins [facility] [place], [address] [place] [address] Dr [address] [address]Mary [place], [id number], [place] tel:[phone] [place] Venous insufficiency (chronic) (peripheral) 3 Jose A Amaral. [address], [place] [address], [place], [address], [place]. tel:[phone] Referring Provider: Glory Huff, [address] [place] [address] Rd, [facility] [place], [address]. tel:[phone] [place] [facility], [address] [place] [address] [address], [place], [id number], [place] tel:[phone] [place] Venous insufficiency (chronic) (peripheral) 3 Jos eA Amaral. [address] [place] [address], [place] [address], [place], [address], [place]. tel:[phone] Referring Provider: Glory Huff, [address], [place], [address]. tel:[phone] [facility], [address] [place] [address] [address], [place], [id number], [place] tel:[phone] [place] Venous insufficiency (chronic) (peripheral) 3 Jose A Amaral. [address] [place] [address], [place] [address], [place], [address], [place]. tel:[phone] Referring Provider: Glory Huff, [address], [facility] [place], [address]. tel:[phone] Office/Oupt E&M New Pt 30 Mins [facility], [address] [place] [address] [address]Mary [place], [id number], [place] tel:[phone] [place] Cramp and spasmVenous insufficiency (chronic) (peripheral)Es sential (primary) hypertensionPe ripheral vascular disease, unspecified 3 Jose A Amaral. [facility], [address], [place], [address], [place]. tel:[phone] Referring Provider: Glory Champagneley, [address], [place], [address]. tel:[phone] Family History Family Member Type Diagnosis Age At Onset No Information Payers Payer name Insurance type Covered libertarian ID Murtaza conklin(s) [facility] Medicare Advantage [id number] Social History Type Description Quantity Date Captured Comments Alcohol Use Details No Caffeine Use Details Unknown Tobacco Use Status Never smoked tobacco 2022 Smoking Status Never smoker Non-Smoking Tobacco Use Details : No Details Available : No Details Available Sex Female Chief Complaint And Reason For Visit No Information Reason For Referral Reason For Referral No Information Plan Of Treatment Date Type Action Status Goal Tobacco cessation counseling completed Goal Tobacco cessation counseling completed Goal Diet education completed Referral Ordered: Weight management: Referral to physician timeframe: 3 Months (related to Body mass index (BMI) 27.0-27.9, adult) ordered History Of Present Illness Encounter Date Complaint History Of Prese nt Illness No Information Functional Status Date Functional Assessmen t No Information Instructions Date Instruction Additional Infor mation Patient education booklet given Related to Venous insufficiency (chronic) (peripheral) Lifestyle education Related to B jessie mass index (BMI) 27.0-27.9, adult Giving Encouragement to exercise Related to Body mass index (BMI) 27.0-27.9, adult Diet education Related to Body mass index (BMI) 27.0-27.9, adult Assessments Type Assessment Date assessment Chronic venous htn w oth comp of bilateral low extrm Patient Care Teams Name Effective Dates (start - stop) Status Members No Information
[2025-04-23 13:04] VITALS: BP 112/58; PULSE 100; O2SAT 97; BMI 28.9
--- NOTE | 2025-04-23 13:04 | MHC.OFFVIS ---
Vital Signs 04/23/25 13:04 Height 5 ft 3 in Weight 163 lb BMI 28.9 BP 112/58 L Blood Pressure Location Rt brachial Position Sitting Pulse 100 Pulse Source Pulse Oximeter Pulse Oximetry (%) 97 Oxygen Delivery Method Room Air Intake Visit Reasons: dyspnea Allergies Bactrim Allergy (Mild, Uncoded 10/20/23 09:23) Rash HPI HPI dyspnea: Details: 74-year-old lady, nonsmoker, followed for asthma and allergies. She has been using Trelegy with reasonable, but not complete control of her symptoms, however it is very expensive for her when she hits [email or web address], at that time she is using AirDuo. She denies recent exacerbations. She has completed her RAST testing that was essentially negative. Her asthma symptoms are well controlled at this time, however she complains of slowly worsening dyspnea on exertion. [facility] Medical History Depression Anxiety HLD (hyperlipidemia) HTN (hypertension) Gallbladder calculus Surgical History S/P spinal surgery Family History Mother History of brain cancer Father AA (aortic aneurysm) Social History Alcohol intake: never Patient Tobacco Use Status: Never used Tobacco Review of Systems Const Denies daytime sleepiness, Denies excessive sweating, Denies fatigue, Denies fever(s), Denies lethargy, Denies malaise, Denies night sweats, Denies snoring and Denies weight loss Eyes Denies blurry vision and Denies itchy eyes ENT Denies nasal congestion, Denies post nasal drip, Denies sinus pain, Denies sinus pressure and Denies other ( Thrush) Card Denies chest pain, Denies pedal edema, Denies dyspnea, Reports dyspnea on exertion, Denies orthopnea and Denies paroxysmal nocturnal dyspnea Resp Denies cough, Denies hemoptysis, Denies excessive phlegm production, Denies dyspnea, Reports dyspnea on exertion, Denies snoring and Denies wheezing GI Denies abdominal pain and Denies heartburn Musc Denies myalgias, Denies arthralgias and Denies joint swelling Skin/Breast Denies rash Neuro Denies memory loss and Denies seizure-like activity Psych Denies abnormal sleep pattern, Denies anxiety and Denies memory loss Endo Denies excessive sweating, Denies fatigue and Denies heat intolerance Chao/Lymph Denies easy bruising Aller/Immun Denies itchy eyes, Denies seasonal rhinorrhea and Denies wheezing Physical Exam Vital Signs: Last Vital Signs Pulse 100 04/23/25 13:04 BP 112/58 L 04/23/25 13:04 Pulse Ox 97 04/23/25 13:04 Oxygen Delivery Method Room Air 04/23/25 13:04 BMI result Body Mass Index 28.9 Const General: no acute distress and alert Nutritional Appearance: not obese Orientation/consciousness: Other orientation findings ( oriented) HEENT Head: Yes atraumatic Eyes General: appearance normal, both eyes and all related structures Sclerae: sclerae normal EOM: EOMs intact bilaterally Neck Neck: Yes supple Lymphatic: no lymphadenopathy noted Resp Effort & Inspection: normal respiratory effort and no use of accessory muscles Auscultation: clear to auscultation bilaterally Cardio Rate: regular rate Rhythm: regular rhythm Heart sounds: no gallops, no murmurs and no rubs Skin General skin exam: other ( warm) Extrem General: No clubbing, No cyanosis and No edema Assessment & Plan Assessment & Plan (1) Reactive airway disease: Code(s): J45.909 - Unspecified asthma, uncomplicated Category: Medical Plan: Well controlled on current regimen of Trelegy and albuterol MDI. Continue current regimen. (2) Dyspnea on exertion: Code(s): R06.09 - Other forms of dyspnea Category: Medical Plan: Now with slowly worsening dyspnea on exertion. Will obtain stress test. (3) Environmental allergies: Code(s): Z91.09 - Other allergy status, other than to drugs and biological substances Category: Medical Plan: Well controlled on as needed nasal ipratropium. Continue current regimen. Coding Level of Care Code Est Pt Level 4 (91773) Complex EM visit Add On G2211 Diagnoses Reactive airway disease J45.909 Dyspnea on exertion R06.09 Environmental allergies Z91.09
--- OUTSIDE RECORDS SUMMARY | 2025-04-23 14:05 | XMS_ITS | Clinical Summary ---
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 May repeat dose once in 2 hours if no relief. Do not exceed 2 doses in 24 hours. 9 tablet 5 5 Active Active Problems Problem Noted Date Diagnosed Date [...] Encounters Date Type Department Care Team Description 02/20/2025 11:30 AM EDT Office Visit [address] [place] [address] Marita Good MD Chronic migraine without aura without status migrainosus, not intractable (Primary Dx) 02/18/2025 9:52 AM EDT - 02/18/2025 12:12 PM EDT Emergency [facility] Emergency [address] [place] [phone] Chronic migraine without aura without status migrainosus, not intractable (Primary Dx) Discharge Disposition: Home or Self Care 02/06/2025 9:00 AM EDT Procedure visit [facility] [place] [facility] [place] [address] [facility] [address] [place] [address] Marita Good MD Chronic migraine without [...] Sign Reading Time Taken Comments Blood Pressure 157/88 02/20/2025 11:26 AM EDT Pulse 105 02/20/2025 11:26 AM EDT Temperature 37 C (98.6 F) 02/18/2025 9:08 AM EDT Respiratory Rate 18 02/18/2025 9:08 AM EDT Oxygen Saturation 97% 02/20/2025 11:26 AM EDT Inhaled Oxygen Concentration - - Weight 73 kg (161 lb) 02/20/2025 11:26 AM EDT Height 157.5 cm (5' 2 ) 02/18/2025 9:08 AM EDT Body Mass Index 29.45 02/18/2025 9:08 AM EDT Plan of Treatment Upcoming Encounters Date Type Department Care Team (Late st Contact Info) Description 05/01/2025 8:40 AM EDT Procedure visit [facility] [address] [facility] [address] [place] [address] Marita Good MD [address] [facility] [address] [place] [phone] Health Maintenance Due Date Last Done Comments Hepatitis A Vaccines (1 of 2 - Risk 2-dose series) 1968 Hepatitis B Vaccines (1 of 3 - Risk 3-dose series) 2009 DTaP,Tdap,and Td Vaccines (2 - Td or Tdap) 01/27/2011 01/27/2001 Pneumococcal Vaccine: 50+ Years (2 of 2 - PPSV23) 09/29/2018 08/04/2018 Cholesterol Screening (Lipid Panel) 09/01/2022 Colorectal Cancer Screening: Colonoscopy 09/01/2022 Falls Risk Assessment 09/01/2022 Hepatitis C Screening 09/01/2022 Medicare Annual Wellness Visit 09/01/2022 Social Influencers of Health Screening 09/01/2022 Zoster Vaccines (2 of 3) 07/11/2023 05/16/2023, 12/0 10/2021 COVID-19 Vaccine ( season) 2024 11/20/2021, 02/17/2021, 01/20/2021 RSV Immunization Adult Patients (1 - 1-dose 75+ series) 2024 Hypertension/CHF/CAD Annual BMP Blood Test 09/28/2024 Depression Screening 10/03/2024 Influenza Vaccine (#1) 2025 4, 07/07/2023, 07/07/2022, Additional history exists Osteoporosis Screening (Bone Density Screening) 11/23/2031 11/23/2021, 07/30/2019 Breast Cancer Screening Discontinued 11/26/19 23, 11/23/2021, 11/20/2020, Additional history exists HIB Vaccines Aged Out [...] Procedure Name Priority Date/Time Associated Diagnosis Comments [facility] SCREENING DIGITAL Routine 11/26/2022 8:02 AM EST Encounter for screening mammogram for malignant neoplasm of breast [facility] DEXA AXIAL SKELETON Routine 11/23/2021 9:28 AM EST Encounter for screening for osteoporosis from Last 3 Months or Most Recently Relevant to Health Maintenance Results * [facility] SCREENING DIGITAL (11/26/2022 8:02 AM EST) Anatomical Region Laterality Modality Mammography 11/25/2022 2:17 PM EST Narrative 11/26/2022 8:02 AM EST [facility] Diagnostic Imaging Department [address] [place] [address] Patient: IRINA ERAZO /Age/Sex: 1950 - 72 - F Unit#: [id number] Location/Status: [facility] CLI Mnemonic/Ordering Site: [facility] Ordering Physician: ANDI STAFFORD MD Taina Screening Digital - 11/25/221517 HISTORY: The patient is a 72-year-old female presenting for routine screening mammography. The patient has a family history of breast cancer involving a sister at age 68, as well as a niece, age not specified. FINDINGS: CC and MLO views of both breasts were obtained using full field digital mammography in the epacubeographe 2000-D unit. Computer aided detection with the iCAD Second Look 7.2-H was employed. In addition, breast tomosynthesis in MLO projection was performed. The breasts are again seen to be composed of a combination of fatty and fibroglandular elements (scattered areas of fibroglandular density, category B density, as calculated by DemoHirepara software), as also demonstrated on prior studies most recently 11/23/2021 and most remotely 06/26/2016. A few scattered benign calcifications are again seen in the right breast. There is no suspicious cluster of microcalcifications, mass, or area of architectural distortion. There is no skin thickening or nipple retraction. IMPRESSION: No mammographic evidence of malignancy. A negative mammogram in the presence of a clinically suspicious palpable abnormality does not preclude the possibility of malignancy or alter the indications for biopsy. BIRADS Code Class 2: Benign Finding PQRI CPT II 3342F Code 13202, 71129 PQRI 225 CPT II 7025F Dictating Physician: RUPALI HARMON MD Electronically Signed by: RUPALI HARMON MD Dic Date/Time: 11/26/22 0758 Sign date/Time: 11/26/22 0802 Procedure Note Rupali Harmon MD - 11/04/2023 [facility] Diagnostic Imaging Department [address] [place] [address] Patient: IRINA ERAZO Rhonda /Age/Sex: 1950 - 72 - F Unit#: [id number] [facility]onic[facility]Ordering Site: [facility] Ordering Physician: ANDI STAFFORD MD Taina Screening Digital - 11/25/22 - 5948 HISTORY: The patient is a 72-year-old female presenting for routinescreening mammography. The patient has a family history of breast cancer involvinga sister at age 68, as well as a niece, age not specified. FINDINGS: CC and MLO views of both breasts were obtained using fullfield digital mammography in the epacubeographe 2000-D unit. Computer aideddetection with the TerrallianceD Second Look 7.2-H was employed. In addition, breasttomosynthesis in MLO projection was performed. The breasts are again seen to be composed of a combination of fatty and fibroglandular elements (scattered areas of fibroglandular density,category B density, as calculated by DemoHirepara software), as also demonstratedon prior studies most [...] Benign Finding PQRI CPT II 3342F Code 66193, 91097 PQRI 225 CPT II 7025F Dictating Physician: RUPALI HARMON MD Electronically Signed by: RUPALI HARMON MD Dic Date/Time: 11/26/22 0758 Sign date/Time: 11/26/22 0802 us Andi Stafford MD IMG BI PROCEDURES Final Result * [facility] DEXA AXIAL SKELETON (11/23/2021 9:28 AM EST) Anatomical Region Laterality Modality Mammography 11/23/2021 8:58 AM EST Narrative 11/23/2021 9:28 AM EST [facility] Diagnostic Imaging Department [address] [place] [address] Patient: CASTROIRINA D.O.B./Age/Sex: 1950 - 71 - F Unit#: [id number] Location/Status: [facility]/REG CLI Mnemonic[facility] Ordering Physician: CHASE DUENAS MD Taina Dexa Axial Skeleton - 02/21/22 - 0925 HISTORY: The patient is a 71-year-old postmenopausal female with clinical concern for metabolic bone disease. FINDINGS: Dual [...] 111% of that of age matched controls. This yields a T-score of -0.6 and a Z-score of 0.7 and there is therefore no evidence of osteoporosis or osteopenia here. However, the T-score of the right femoral neck is -1.6 and that of the left femoral neck is -1.5 which is diagnostic of osteopenia. IMPRESSION: 1. Osteopenia. There has been an increase of 4.9% in bone mineral density in the lumbar spine since the prior examination of 07/30/2019. There has been an increase of 1.6% in bone mineral density in the right femur and an increase of 0.2% in bone mineral density in the left femur. 2. FRAX analysis yields a 10-year probability of major osteoporotic fracture of 31.4% and a 10-year probability of hip fracture of 6.9%. Code 23445 Dictating Physician: RUPALI HARMON MD Electronically Signed by: RUPALI HARMON MD Dic Date/Time: 11/23/21926 Sign date/Time: 11/23/21927 Procedure Note Rupali Harmon MD - 09/22/2022 [facility] Diagnostic Imaging Department [address] [place] [address] Patient: IRINA ERAZO/Age/Sex: 1950 - 71 - F Unit#: [id number] Location/Status: [facility] CLI Mnemonic[facility] Ordering Physician: CHASE DUENAS MD Taina Dexa Axial Skeleton - 11/23/21924 HISTORY: The [...] density of the femurs bilaterally is 0.934 gm/sx6ltkgd is 93% of that of young normals [...] probability of hip fracture of 6.9%. Code 56555 Dictating Physician: RUPALI HARMON MD Electronically Signed by: RUPALI HARMON MD Dic Date/Time: 11/23/21926 Sign date/Time: 11/23/21927 Chase Duenas MD IMG BI PROCEDURES Final Result from Last 3 Months or Most Recently Relevant to Health Maintenance Insurance [employer] - [place] MEDICARE ADVANTAGE Care Teams Mule Driver Relationship Specialty Start Date End Date Andi Stafford MD [address] [place] [id number] PCP - General Internal Medicine 10/24/24
--- OUTSIDE RECORDS SUMMARY | 2025-04-23 14:05 | XMS_ITS | Patient Health Record ---
Author Organization [facility] [address] Address [address] [place] [address] Care Team Providers Care Wrinkle Chaser Name Role Phone DORIE WRIGHT Unavailable [phone] MARCIE ALBRECHT Unavailable [phone] NBA MULLER Unavailable [phone] Allergies Allergen (clinical drug ingredient) Drug/Non Drug Allergy documented on EMR Reaction Allergy Type Onset Date Status sulfamethoxazole / trimethoprim Bactrim Unknown Drug Allergy Active Results Component Value Reference Range Notes TSH+T4F+T3Free Reviewed date:11/23/2024 08:13:13 AM Interpretation: Performing Lab:[facility], [address] [facility], [place], Phone - [phone], Director - Jose Notes/Report: TSH 0.444 0.450-4.500 uIU/mL Triiodothyronine (T3), Free 3.5 2.0-4.4 pg/mL T4,Free(Direct) 1.59 0.82-1.77 ng/dL Lucero Valladares LP Default Reviewed date:11/23/2024 08:13:13 AM Interpretation: Performing Lab:[facility], [address] [facility], [place], Phone - [phone], Director - Jose Notes/Report: Lucero Valladares LP Default A hand-written panel/profile was received from your office. In accordance with the [facility] Ambiguous Test Code Policy dated April 2003, we have completed your order by using the closest currently or formerly recognized AMA panel. We have assigned Lipid Panel, Test Code #510887 to this request. If this is not the testing you wished to receive on this specimen, please contact the [employer] Client Inquiry/Technical Services Department to clarify the test order. We appreciate your business. Comp. Metabolic Panel (14)-3 Reviewed date:11/23/2024 08:11:04 AM Interpretation: Performing Lab:[facility], [address] [place] [address], Phone - [phone], Director - MOKiara Notes/Report: Glucose 100 70-99 mg/dL BUN 17 [...] 0-40 IU/L ALT (SGPT) 14 0-32 IU/L Lipid Panel-[id number] Reviewed date:11/23/2024 08:13:13 AM Interpretation: Performing Lab:[facility], [address] [place] [address], Phone - [phone], Director - Jose Notes/Report: Cholesterol, Total 186 100-199 mg/dL Triglycerides 168 0-149 mg/dL HDL Cholesterol 45 >39 mg/dL VLDL Cholesterol Lenny 30 5-40 mg/dL LDL Chol Calc (NIH) 111 0-99 mg/dL Thyroglobulin Antibody-[id number] 5 Reviewed date:11/23/2024 08:13:13 AM Interpretation: Performing Lab:[address], Phone - [phone], Director - MOCammy Notes/Report: Thyroglobulin Antibody <1.0 0.0-0.9 IU/mL Thyroglobulin Antibody measured by [employer] . It should be noted that the presence of thyroglobulin antibodies may not be pathogenic nor diagnostic, especially at very low levels. The assay medical photographer has found that four percent of individuals without evidence of thyroid disease or autoimmunity will have positive TgAb levels up to 4 IU/mL. CBC With Differential/Platel et-[id number] Reviewed date:11/23/2024 08:13:13 AM Interpretation: Performing Lab:[facility], [address] [place] [address], Phone - [phone], Director - [facility] Notes/Report: WBC 10.3 3.4-10.8 x10E3/uL RBC 4.60 3.77-5.28 x10E6/uL Hemoglobin 13.6 11.1-15.9 g/dL Hematocrit 41.9 34.0-46.6 % MCV 91 79-97 fL MCH 29.6 26.6-33.0 pg MCHC 32.5 31.5-35.7 g/dL RDW 12.5 11.7-15.4 % Platelets 333 150-450 x10E3/uL Neutrophils 68 Not Estab. % Lymphs 22 Not Estab. % Monocytes 7 Not Estab. % Eos 2 Not Estab. % Basos 1 Not Estab. % Neutrophils (Absolute) 7.0 1.4-7.0 x10E3/uL Lymphs (Absolute) 2.3 0.7-3.1 x10E3/uL Monocytes(Absolute) 0.7 0.1-0.9 x10E3/uL Eos (Absolute) 0.2 0.0-0.4 x10E3/uL Baso (Absolute) 0.1 0.0-0.2 x10E3/uL Immature Granulocytes 0 Not Estab. % Immature Grans (Abs) 0.0 0.0-0.1 x10E3/uL Vitamin [id number] Reviewed date:11/23/2024 08:13:13 AM Interpretation: Performing Lab:[facility], [address] [facility], [place], Phone - [phone], Director - [facility] Notes/Report: Vitamin B12 343 757-6870 pg/mL Lucero Valladares CMP14 Default A hand-written panel/profile was received from your office. In accordance with the [facility] Ambiguous Test Code Policy dated April 2003, we have completed your order by using the closest currently or formerly recognized AMA panel. We have assigned Comprehensive Metabolic Panel (14), Test Code #650928 to this request. If this is not the testing you wished to receive on this specimen, please contact the [facility] Client Inquiry/Technical Services Department to clarify the test order. We appreciate your business. Lipase-[id number] Reviewed date:11/23/2024 08:13:13 AM Interpretation: Performing Lab:[facility] [place], [address] [facility], [place], Phone - [phone], Director - Jose Notes/Report: Lipase 24 14-85 U/L Amylase-[id number] Reviewed date:11/23/2024 08:13:13 AM Interpretation: Performing Lab:[facility] [place], [address] [facility], [place], Phone - [phone], Director - Jose Notes/Report: Amylase 57 31-110 U/L CR Spine Lumbar 2 or 3 Views Reviewed date:05/30/2024 09:31:30 AM Interpretation: Performing Lab: Notes/Report: Original Ordering Provider: DORIE MUÑOZ PA-C [facility] FREE T3 Reviewed date:05/31/2024 08:41:20 AM Interpretation: Performing Lab: Notes/Report: FREE T3 298 230-420 pg/dl CARDIO CRP- HIGH SENSITIVE Reviewed date:05/31/2024 08:41:20 [...] HRT may need to be calibrated downward. TSH Reviewed date:05/31/2024 08:41:20 AM Interpretation: Performing Lab: Notes/Report: [employer], a member of [address] [address] Legislative Analyst - Natasha Rangel MD TSH 0.51 0.40-4.00 uIU/ml FREE T4 Reviewed date:05/31/2024 08:41:20 AM Interpretation: Performing Lab: Notes/Report: FREE T4 0.99 0.70-1.80 ng/dL VITAMIN B12 Reviewed date:05/31/2024 08:41:20 AM Interpretation: Performing Lab: Notes/Report: VITAMIN B12 359 250-900 pg/mL VITAMIN D, 25-HYDROXY Reviewed date:05/31/2024 08:41:20 AM Interpretation: Performing Lab: Notes/Report: VITAMIN D, 25-HYDROXY 36 30-80 ng/mL LIPID PROFILE Reviewed date:05/31/2024 08:41:20 AM Interpretation: Performing Lab: Notes/Report: CHOLESTEROL 197 0-200 mg/dL TRIGLYCERIDES 211 0-150 mg/dL HDL CHOLESTEROL 56 >40 mg/dL LDL CALCULATED 99 0-100 mg/dL TC-HDLC RATIO 3.5 0-4.4 mg/dL CBC WITH AUTO DIFF Reviewed date:05/31/2024 08:41:20 AM Interpretation: Performing Lab: Notes/Report: Original Ordering Provider: MARCIE ALBRECHT PA-C (EMERY) [employer], [place] [address] Legislative Analyst - Natasha Rangel MD WBC 10.1 4.8-10.8 x10-3/uL RBC 4.4 3.8-4.8 [...] x10-3/uL IMMATURE GRANULOCYTES # 0.03 0-0.03 x10-3/uL COMPREHENSIVE METABOLIC PANE L Reviewed date:05/31/2024 08:40:56 AM Interpretation: Performing Lab: Notes/Report: Note Original Orderi ng Provider: MARCIE ALBRECHT PA-C (EMERY) GLUCOSE 110 70-100 mg/dL Reference range applicable [...] 10-60 U/L ALK PHOS 100 42-121 U/L GLYCOHEMOGLOBIN PROFILE Reviewed date:05/31/2024 08:41:20 AM Interpretation: Performing Lab: Notes/Report: Original Ordering Provider: MARCIE STOLL (EMERY)[facility], [place] [address] Legislative Analyst - Natasha Rangel MD GLYCATED HEMOGLOBIN A1C 6.3 <6.5 % ESTIMATED AVERAGE GLUCOSE 134 URINALYSIS Reviewed date:05/31/2024 08:41:20 AM Interpretation: Performing Lab: Notes/Report: Note Original Ordering Provider: MARCIE STOLL (EMERY)[facility], [place] [address] Legislative Analyst - Natasha Rangel MD GLUCOSE, (UA) NEGATIVE NEGATIVE mg/dL BILIRUBIN, URINE NEGATIVE NEGATIVE KETONE, URINE NEGATIVE NEGATIVE mg/dL SPECIFIC GRAVITY, URINE 1.020 1.003-1.030 BLOOD, URINE NEGATIVE NEGATIVE PH, URINE 6.0 5.0-8.0 PROTEIN, URINE NEGATIVE <= TRACE mg/dl UROBILINOGEN, URINE 1.0 0.2-1.0 E.U./dL NITRITE, URINE NEGATIVE NEGATIVE LEUKOCYTE ESTERASE, URINE SMALL NEGATIVE Note Original Ordering Provider: MARCIE ALBRECHT (EMERY) [employer], a member of [address] [address] Legislative Analyst - Natasha Rangel MD RBC, URINE 1 0-4 /HPF WBC, URINE 8 0-4 /HPF EPITH CELLS, URINE 41 0-60 /LPF BACTERIA, URINE LIGHT NEGATIVE EKG Reviewed date:10/31/2024 09:45:06 PM Interpretation: Performing [...] 0 RR_NumNormalBeats 0 RR_SystolicBP 0 RR_SystolicBP 0 Reason For Referral Reason [facility] Diagnosis 1 Spinal arthritis (M4 7.819) Referral Organization [facility] Referring Provider First Name MARCIE Referring Provider Last Name AMBROCIO Ref[facility] Referred Provider Specialty Physical The rapist General Notes RAVI ISRAELERSTEN 0 05/30/2024 09:35:27 AM >info sent to both office and to patient- pt can call and book- pt has number Referral Priority Routine Diagnosis 1 Back pain, unspecifi ed back location, unspecified back pain laterality, unspecified chronicity (M54.9) Diagnosis 2 Lumbar foraminal ana nosis (M48.061) Referral Organization [facility] Referring Provider First Name DORIE Referring Provider Last Name KYLE Referring Provider [facility] Internal edicine Referred Provider Specialty Neurosurgery General Notes Karen Marks 2023 11:45:13 AM >faxed to [place] [phone] p [phone] with mri Clinical Notes Navjot Talbert 02:47:25 PM > The patient was seen on on 10/10/24 Referral Priority Routine Reason Evaluate & Treat Diagnosis 1 Serous otitis media, unspecified chronicity, unspecified laterality (H65.90) Referral Organization [facility] Referring Provider First Name DORIE Referring Provider Last Name KYLE Referring Provider [facility] Internal edicine Referred Provider Specialty Ear, nose an d throat surgeon General Notes Anjali Singleton 12/02 02:26:26 PM >Filled out form for ENT and faxed over with recent notes., p.[phone], f.[phone] Clinical Notes Navjot Talbert 03:33:27 PM > The patient was seen on 01/08/25 Referral Priority Routine Medications Medication SIG (Take, Route, Frequency, Duration) Notes Start Date End Date Status Losartan Potassium-HCTZ 100-12.5 MG Take 1 tablet by mouth once daily; Duration: 90 Active Atorvastatin Calcium 40 MG Take 1 tablet by mouth once daily; Duration: 90 Active Omeprazole Magnesium 20 MG 1 tablet 1/2 to 1 hour before morning meal Orally Once a day; Duration: 90 days PRN Active Venlafaxine HCl ER 37.5 MG 1 capsule wit h food Orally Once a day; Duration: 90 days Active amLODIPine Besylate 5 MG 1 tablet Orally Once a day; Duration: 90 days Active Albuterol Sulfate (2.5 MG/3ML) 0.083% 3 mL as needed Inhalation every 6 hrs; Duration: 30 days 12/25/2024 Active Celecoxib 200 MG Take 1 capsule by [facility] once daily; Duration: 90 Active Calcium 500 MG 1 tablet with meals Orally once daily Active Trelegy Ellipta 200-62.5-25 MCG/ACT 1 puff Inhalation Once a day Active LORazepam 0.5 MG 1 tablet as needed O rally twice a day; Duration: 30 days Active Vitamin D 50 MCG (1999 UT) 1 tablet Oral ly Once a day Active Immunizations Vaccine Route Administration Date Status Comme nts influenza IM Intramuscular 07/07/2022 Administered Influenza, high dose seasonal IM Intramuscular 07/07/2023 Administered SHINGRIX IM Intramuscular 09/02/2022 Administered SHINGRIX IM Intramuscular 05/16/2023 Administered Social History Tobacco Use: Social History Observation Description Date Details (start date - stop date) Never Smoker NA - NA Tobacco Use/Smoking Question Answer Notes Are you [...] None ETOH: none Drug Use: None Retired. Problems Problem Type SNOMED Code ICD Code Onset Dates Problem Status W/U Status Risk Notes Problem Vitamin D deficiency (19983975) Vitamin D deficiency, unspecified (E55.9) Active confirmed Problem Hyperlipidemia (26842104) Hyperlipidemia, unspecified (E78.5) Active confirmed Problem Insomnia (289367840) Insomnia due to medical condition (G47.01) Active confirmed Problem Reactive airway disease (858552972341) Airway disease due to other specific organic dusts (J66.8) Active confirmed Problem Cholelithiasis without obstruction (38377665) Calculus of gallbladder without cholecystitis without obstruction (K80.20) Active confirmed Problem Fibromyalgia (066400753) Fibromyalgia (M79.7) Active confirmed Problem Snoring (00184987) Snoring (R06.83) Active conf irmed Problem Epigastric pain (99326647) Epigastric pain (R10.13) Active confirmed Problem C-reactive protein abnormal (606731872) Elevated C-reactive protein (CRP) (R79.82) Active confirmed Problem Adult health examination (464475861) Encounter for general adult medical examination without abnormal findings (Z00.00) Active confirmed Problem Abnormal blood pressure (42356469) Encounter for examination of blood pressure with abnormal findings (Z01.31) Active confirmed Problem Diabetes mellitus screening (235039342) Encounter for screening for diabetes mellitus (Z13.1) Active confirmed Problem Screening for cardiovascular system disease (881801686) Encounter for screening for cardiovascular disorders (Z13.6) Active confirmed Problem Prediabetes (067581957) Prediabetes (R73.03) Active confirmed Problem Neuropathy (395476970) Neuropathy (G62.9) Active confirmed Problem Hyperlipidaemia (21549183) Hyperlipidemia, unspecified hyperlipidemia type (E78.5) Active confirmed Problem Migraine (12478174) Migraine without status migrainosus, not intractable, unspecified migraine type (G43.909) Active confirmed Problem Anxiety (40088879) Anxiety (F41.9) Active confi rmed Problem Hypothyroidism (53843636) Hypothyroidism, unspecified type (E03.9) Active confirmed Problem Vitamin D deficiency (54726984) Vitamin D deficiency (E55.9) Active confirmed Problem Obesity (087290593) Obesity (BMI 30-39.9) (E66.9) Active confirmed Problem Headache (64476442) Headache, unspecified (R51.9) Active confirmed Problem New daily persistent headache (disorder) (779027674872215) Persistent headaches (R51.9) Active confirmed Problem Amnesia (40447494) Memory change (R41.3) Active confirmed Problem Vitamin B>12< deficiency anaemia (00251553) Anemia due to vitamin B12 deficiency, unspecified B12 deficiency type (D51.9) Active confirmed Problem Primary hypertension (05859707) Primary hypertension (I10) Active confirmed Problem Moderate recurrent major depression (88241191) Moderate episode 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) Active confirmed Problem Peripheral vascular disease (878229620) Claudication of both lower extremities (I73.9) Active confirmed Problem Liver disease (335627677) Hepatic lesion (K76.9) Active confirmed Problem Claudication (92130947) Claudication (I73.9) Active confirmed Problem CT of abdomen abnormal (63919948862470172 ) Abnormal CT of the abdomen (R93.5) Active confirmed Problem Asthma (112409511) Asthma (J45.909) Active conf irmed Problem Lipid screening (775019076) Lipid screening (Z13.220) Active confirmed Problem Low back pain (finding) (804045867) Lumbar back pain (M54.50) Active confirmed Problem Globus sensation (703632178) Globus sensation (R09.A2) Active confirmed Problem Spondylosis without myelopathy (02637409) 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) Active confirmed Problem Cervical arthritis (819365110) Cervical arthritis (M47.812) Active confirmed Problem Lumbar spinal stenosis (07845798) Lumbar foraminal stenosis (M48.061) Active confirmed Problem Non-suppurative otitis media (675294002) Serous otitis media, unspecified chronicity, unspecified laterality (H65.90) Active confirmed Vital Signs Heart Rate 97 /min 03/12/2025 Oximetry 97 % 03/12/2025 Blood pressure diastolic 70 mm Hg 03/12/2025 Height 61 in 03/12/2025 Blood pressure systolic 138 mm Hg 03/12/2025 Weight 163.4 lbs 03/12/2025 BMI 30.87 kg/m2 03/12/2025 Encounters Encounter Location Date Provider Diagnosis [facility] [address] [place] [address] 05/29/2024 MARCIE ALBRECHT Migraine without sta tus migrainosus, not intractable, unspecified migraine type G43.909 ; Asthma J45.909 ; Anxiety F41.9 ; Insomnia due to medical condition G47.01 and Sciatic nerve pain, unspecified laterality M54.30 [facility] [address] [place], [place] 08/23/2024 MARCIE ALBRECHT Lumbar back pain M54 .50 ; Medicare annual wellness visit, subsequent Z00.00 ; Depression screen Z13.31 ; Encounter for screening for other disorder Z13.89 ; Obesity (BMI 30-39.9) E66.9 and Advanced care planning/counseling discussion Z71.[address] [facility] [address] [place], [place] 10/25/2024 MARCIE ALBRECHT Obesity (BMI 30-39.9 ) E66.9 ; Primary hypertension I10 ; Prediabetes R73.03 ; Anxiety F41.9 and Insomnia due to medical condition G47.01 [facility] [address] [place], [place] 10/31/2024 NBA MULLER Acute upper respirat ory infection, unspecified J06.9 ; Fibromyalgia M79.7 ; Primary hypertension I10 ; Anxiety F41.9 ; Headache, unspecified R51.9 and Dizzy R42 [facility] [address] [place], [place] 11/22/2024 MARCIE ALBRECHT Shortness of breath R06.02 ; Acute upper respiratory infection, unspecified J06.9 ; Fibromyalgia M79.7 ; Anxiety F41.9 ; Headache, unspecified R51.9 and Dizzy R42 [facility] 12/25/2024 MARCIE ALBRECHT Primary hypertension I10 ; Insomnia due to medical condition G47.01 ; Asthma J45.909 and Fibromyalgia M79.7 [facility] [address] [place], [place] 03/06/2025 DORIE WRIGHT Primary hypertension I10 ; Encounter for examination of blood pressure with abnormal findings Z01.31 and Anxiety F41.9 [facility] [address] [place], [place] 03/12/2025 MARCIE ALBRECHT Shortness of breath R06.02 ; Primary hypertension I10 ; Anxiety F41.9 and Encounter for examination of blood pressure with abnormal findings Z01.31 [facility] [address] [place] [address] 03/25/2025 DORIE WRIGHT [facility] [address] [place] [address] 06/13/[address] [facility] [address] [place] [address] 08/23/2024 DORIE WRIGHT [facility] [address] [place] [address] 10/30/2024 MARCIE CAMPBELLA [facility] [address] [place] [address] 10/31/2024 NBA RENZO [facility] [address] [place] [address] 11/20/2024 MARCIE CAMPBELLA [facility] [address] [place] [address] 11/22/20[address]ORIE [address] [facility] [address] [place] [address] 04/01/2025 DORIE WRIGHT Assessments Encounter Date Diagnosis (ICD Code) Assessment Notes Treatment Notes Treatment Clinical Notes [...] Dictation was accomplished with the use of Flazio voice recognition software, prone to medical misidentifications [...] Dictation was accomplished with the use of [employer] voice recognition software, prone to medical misidentifications [...] log exercise and discussed fitness Apps like Jelastic which can help keep log off calories [...] Dictation was accomplished with the use of [employer] voice recognition software, prone to medical misidentifications [...] log exercise and discussed fitness Apps like [employer] which can help keep log off calories [...] Dictation was accomplished with the use of [employer] voice recognition software, prone to medical misidentifications [...] Dictation was accomplished with the use of [employer] voice recognition software, prone to medical misidentifications [...] Dictation was accomplished with the use of [employer] voice recognition software, prone to medical misidentifications [...] Dictation was accomplished with the use of [employer]io voice recognition software, which is prone to [...] Dictation was accomplished with the use of [employer] voice recognition software, which is prone to [...] Dictation was accomplished with the use of [employer] voice recognition software, which is prone to [...] Dictation was accomplished with the use of [employer]io voice recognition software, which is prone to [...] Dictation was accomplished with the use of [employer]io voice recognition software, which is prone to medical misidentifications and grammatical errors. This are unintentional and the practitioner does try to identify and correct these, but some could still be present. Please do not hesitate to contact practitioner for clarification. 12/25/2024 Insomnia due to medical condition (ICD-10 - G47.01) #Chronic Exertional Dyspnea : Sees brick kiln burner and was prescribed Trelegy Ellipta for her dyspnea. She reports some relief of her congestion symptoms from the nasal solution prescribed by the brick kiln burner. Continued use of Trelegy Ellipta should be [...] Dictation was accomplished with the use of [employer] voice recognition software, prone to medical misidentifications [...] - I10) #Chronic Exertional Dyspnea : Sees brick kiln burner and was prescribed Trelegy Ellipta for her dyspnea. She reports some relief of her congestion symptoms from the nasal solution prescribed by the brick kiln burner. Continued use of Trelegy Ellipta should be [...] Dictation was accomplished with the use of [employer] voice recognition software, prone to medical misidentifications and grammatical errors. This is unintentional and the practitioner does try to identify and correct these, but some could still be present. Please do not hesitate to contact practitioner for clarification. All questions answered to patients satisfaction. Patient verbalized understanding of diagnosis and treatments explained. To call sooner prior to next visit it any questions/concerns arise. 03/06/2025 Encounter for examination of blood pressure with abnormal findings (ICD-10 - Z01.31) Irina is a pleasant 74-year-old female presents the office for an urgent care visit # Hypertension: Patient taking losartan hydrochlorothiazide 100/12.5 mg with continued elevated blood pressure 156/84, repeat 168/96. Patient has been taking blood pressure at home and it has been in the 160s over 90s at home. Will add addition of amlodipine 5 mg. # Anxiety: Patient also admits to increased anxiety. Takes venlafaxine 37.5 mg once daily. Lorazepam 0.5 mg once daily as needed. States that yesterday she took a additional lorazepam in the afternoon, and that did help her blood pressure and symptoms. Will prescribe lorazepam 0.5 mg twice daily as needed. Discussed proper use and side effects. # Shortness of breath/COPD: Patient's oxygen stable today in office at 98%, but is short of breath. Follow with pulmonology next week. Taking Trelegy 200/62.5/25 mcg per ACT will discontinue albuterol and trial Airsupra. Given sample in office today, and patient states that she did start feeling better after 1 inhalation. Did discuss the appropriate use. Following with Marcie Baird PA-C on 03/16/2025. Call sooner as needed. Discussed emergency department criteria/criteria to call the office. All quetsions answered to patients satisfaction. Patient verbalized understanding of diagnosis and treatments explained. To call sooner prior to next visit it any questions/concerns arise. Case discussed with collaborating physician Liliane Stafford who reviewed the assessment and plan. Chart, medications, labs, vital signs reviewed. Dictation was accomplished with the use of [employer] voice recognition software, prone to medical misidentifications and grammatical errors. This is unintentional and the practitioner does try to identify and correct these, but some could still be present. Please do not hesitate to contact practitioner for clarification. 03/06/2025 Primary hypertension (ICD-10 - I10) Irina is a pleasant 74-year-old female presents the office for an urgent care visit # Hypertension: Patient taking losartan hydrochlorothiazide 100/12.5 mg with continued elevated blood pressure 156/84, repeat 168/96. Patient has been taking blood pressure at home and it has been in the 160s over 90s at home. Will add addition of amlodipine 5 mg. # Anxiety: Patient also admits to increased anxiety. Takes venlafaxine 37.5 mg once daily. Lorazepam 0.5 mg once daily as needed. States that yesterday she took a additional lorazepam in the afternoon, and that did help her blood pressure and symptoms. Will prescribe lorazepam 0.5 mg twice daily as needed. Discussed proper use and side effects. # Shortness of breath/COPD: Patient's oxygen stable today in office at 98%, but is short of breath. Follow with pulmonology next week. Taking Trelegy 200/62.5/25 mcg per ACT will discontinue albuterol and trial Airsupra. Given sample in office today, and patient states that she did start feeling better after 1 inhalation. Did discuss the appropriate use. Following with Marcie Baird PA-C on 03/16/2025. Call sooner as needed. Discussed emergency department criteria/criteria to call the office. All quetsions answered to patients satisfaction. Patient verbalized understanding of diagnosis and treatments explained. To call sooner prior to next visit it any questions/concerns arise. Case discussed with collaborating physician Liliane Stafford who reviewed the assessment and plan. Chart, medications, labs, vital signs reviewed. Dictation was accomplished with the use of [employer] voice recognition software, prone to medical misidentifications and grammatical errors. This is unintentional and the practitioner does try to identify and correct these, but some could still be present. Please do not hesitate to contact practitioner for clarification. 03/12/2025 Shortness of breath (ICD-10 - R06.02) Irina is a pleasant 74-year-old female presents the office for follow up # Hypertension: Patient taking losartan hydrochlorothiazide 100/12.5 mg and amlodopine 5 mg po daily. BP improved. Will resume. # Anxiety: Patient also admits to increased anxiety. Takes venlafaxine 37.5 mg once daily. Lorazepam 0.5 mg once daily as needed. States that yesterday she took a additional lorazepam in the afternoon, and that did help her blood pressure and symptoms. Will prescribe lorazepam 0.5 mg twice daily as needed. Discussed proper use and side effects. # Shortness of breath/COPD: Patient's oxygen stable today in office at 98%, but is short of breath. Follow with pulmonology next week. Taking Trelegy 200/62.5/25 mcg per ACT will discontinue albuterol and trial Airsupra. Given sample in office today, and patient states that she did start feeling better after 1 inhalation. Did discuss the appropriate use. Discussed emergency department criteria/criteria to call the office. All quetsions answered to patients satisfaction. Patient verbalized understanding of diagnosis and treatments explained. To call sooner prior to next visit it any questions/concerns arise. Case discussed with collaborating physician Liliane Stafford who reviewed the assessment and plan. Chart, medications, labs, vital signs reviewed. Dictation was accomplished with the use of [employer] voice recognition software, prone to medical misidentifications and grammatical errors. This is unintentional and the practitioner does try to identify and correct these, but some could still be present. Please do not hesitate to contact practitioner for clarification. 03/12/2025 Primary hypertension (ICD-10 - I10) Irina is a pleasant 74-year-old female presents the office for follow up # Hypertension: Patient taking losartan hydrochlorothiazide 100/12.5 mg and amlodopine 5 mg po daily. BP improved. Will resume. # Anxiety: Patient also admits to increased anxiety. Takes venlafaxine 37.5 mg once daily. Lorazepam 0.5 mg once daily as needed. States that yesterday she took a additional lorazepam in the afternoon, and that did help her blood pressure and symptoms. Will prescribe lorazepam 0.5 mg twice daily as needed. Discussed proper use and side effects. # Shortness of breath/COPD: Patient's oxygen stable today in office at 98%, but is short of breath. Follow with pulmonology next week. Taking Trelegy 200/62.5/25 mcg per ACT will discontinue albuterol and trial Airsupra. Given sample in office today, and patient states that she did start feeling better after 1 inhalation. Did discuss the appropriate use. Discussed emergency department criteria/criteria to call the office. All quetsions answered to patients satisfaction. Patient verbalized understanding of diagnosis and treatments explained. To call sooner prior to next visit it any questions/concerns arise. Case discussed with collaborating physician Liliane Stafford who reviewed the assessment and plan. Chart, medications, labs, vital signs reviewed. Dictation was accomplished with the use of [employer] voice recognition software, prone to medical misidentifications and grammatical errors. This is unintentional and the practitioner does try to identify and correct these, but some could still be present. Please do not hesitate to contact practitioner for clarification. 03/12/2025 Anxiety (ICD-10 - F41.9) Irina is a pleasant 74-year-old female presents the office for follow up # Hypertension: Patient taking losartan hydrochlorothiazide 100/12.5 mg and amlodopine 5 mg po daily. BP improved. Will resume. # Anxiety: Patient also admits to increased anxiety. Takes venlafaxine 37.5 mg once daily. Lorazepam 0.5 mg once daily as needed. States that yesterday she took a additional lorazepam in the afternoon, and that did help her blood pressure and symptoms. Will prescribe lorazepam 0.5 mg twice daily as needed. Discussed proper use and side effects. # Shortness of breath/COPD: Patient's oxygen stable today in office at 98%, but is short of breath. Follow with pulmonology next week. Taking Trelegy 200/62.5/25 mcg per ACT will discontinue albuterol and trial Airsupra. Given sample in office today, and patient states that she did start feeling better after 1 inhalation. Did discuss the appropriate use. Discussed emergency department criteria/criteria to call the office. All quetsions answered to patients satisfaction. Patient verbalized understanding of diagnosis and treatments explained. To call sooner prior to next visit it any questions/concerns arise. Case discussed with collaborating physician Liliane Stafford who reviewed the assessment and plan. Chart, medications, labs, vital signs reviewed. Dictation was accomplished with the use of [employer] voice recognition software, prone to medical misidentifications and grammatical errors. This is unintentional and the practitioner does try to identify and correct these, but some could still be present. Please do not hesitate to contact practitioner for clarification. 03/06/2025 Anxiety (ICD-10 - F41.9) Irina is a pleasant 74-year-old female presents the office for an urgent care visit # Hypertension: Patient taking losartan hydrochlorothiazide 100/12.5 mg with continued elevated blood pressure 156/84, repeat 168/96. Patient has been taking blood pressure at home and it has been in the 160s over 90s at home. Will add addition of amlodipine 5 mg. # Anxiety: Patient also admits to increased anxiety. Takes venlafaxine 37.5 mg once daily. Lorazepam 0.5 mg once daily as needed. States that yesterday she took a additional lorazepam in the afternoon, and that did help her blood pressure and symptoms. Will prescribe lorazepam 0.5 mg twice daily as needed. Discussed proper use and side effects. # Shortness of breath/COPD: Patient's oxygen stable today in office at 98%, but is short of breath. Follow with pulmonology next week. Taking Trelegy 200/62.5/25 mcg per ACT will discontinue albuterol and trial Airsupra. Given sample in office today, and patient states that she did start feeling better after 1 inhalation. Did discuss the appropriate use. Following with Marcie Baird PA-C on 03/16/2025. Call sooner as needed. Discussed emergency department criteria/criteria to call the office. All quetsions answered to patients satisfaction. Patient verbalized understanding of diagnosis and treatments explained. To call sooner prior to next visit it any questions/concerns arise. Case discussed with collaborating physician Liliane Stafford who reviewed the assessment and plan. Chart, medications, labs, vital signs reviewed. Dictation was accomplished with the use of [employer] voice recognition software, prone to medical misidentifications and grammatical errors. This is unintentional and the practitioner does try to identify and correct these, but some could still be present. Please do not hesitate to contact practitioner for clarification. 12/25/2024 Asthma (ICD-10 - J45.909) #Chronic Exertional Dyspnea : Sees brick kiln burner and was prescribed Trelegy Ellipta for her dyspnea. She reports some relief of her congestion symptoms from the nasal solution prescribed by the brick kiln burner. Continued use of Trelegy Ellipta should be [...] Dictation was accomplished with the use of [employer] voice recognition software, prone to medical misidentifications [...] next visit it any questions/concerns arise. 10/25/2024 Prediabetes (ICD-10 - R73.03) Irina is [...] Dictation was accomplished with the use of [employer] voice recognition software, prone to medical misidentifications [...] Dictation was accomplished with the use of [employer] voice recognition software, which is prone to medical misidentifications and grammatical errors. This are unintentional and the practitioner does try to identify and correct these, but some could still be present. Please do not hesitate to contact practitioner for clarification. 08/23/2024 Depression screen (ICD-10 - Z13.31) Irina [...] log exercise and discussed fitness Apps like [employer] which can help keep log off calories [...] Dictation was accomplished with the use of [employer] voice recognition software, prone to medical misidentifications [...] Dictation was accomplished with the use of [employer] voice recognition software, prone to medical misidentifications [...] Dictation was accomplished with the use of [employer] voice recognition software, prone to medical misidentifications [...] log exercise and discussed fitness Apps like [employer] which can help keep log off calories [...] Dictation was accomplished with the use of [employer] voice recognition software, prone to medical misidentifications [...] Dictation was accomplished with the use of [employer] voice recognition software, which is prone to medical misidentifications and grammatical errors. This are unintentional and the practitioner does try to identify and correct these, but some could still be present. Please do not hesitate to contact practitioner for clarification. 10/25/2024 Anxiety (ICD-10 - F41.9) Irina is [...] Dictation was accomplished with the use of [employer] voice recognition software, prone to medical misidentifications [...] Dictation was accomplished with the use of [employer] voice recognition software, which is prone to medical misidentifications and grammatical errors. This are unintentional and the practitioner does try to identify and correct these, but some could still be present. Please do not hesitate to contact practitioner for clarification. 12/25/2024 Fibromyalgia (ICD-10 - M79.7) #Chronic Exertional Dyspnea : Sees brick kiln [employer] and was prescribed Trelegy Ellipta for her dyspnea. She reports some relief of her congestion symptoms from the nasal solution prescribed by the brick kiln burner. Continued use of Trelegy Ellipta should be [...] Dictation was accomplished with the use of [employer] voice recognition software, prone to medical misidentifications and grammatical errors. This is unintentional and the practitioner does try to identify and correct these, but some could still be present. Please do not hesitate to contact practitioner for clarification. All questions answered to patients satisfaction. Patient verbalized understanding of diagnosis and treatments explained. To call sooner prior to next visit it any questions/concerns arise. 03/12/2025 Encounter for examination of blood pressure with abnormal findings (ICD-10 - Z01.31) Irina is a pleasant 74-year-old female presents the office for follow up # Hypertension: Patient taking losartan hydrochlorothiazide 100/12.5 mg and amlodopine 5 mg po daily. BP improved. Will resume. # Anxiety: Patient also admits to increased anxiety. Takes venlafaxine 37.5 mg once daily. Lorazepam 0.5 mg once daily as needed. States that yesterday she took a additional lorazepam in the afternoon, and that did help her blood pressure and symptoms. Will prescribe lorazepam 0.5 mg twice daily as needed. Discussed proper use and side effects. # Shortness of breath/COPD: Patient's oxygen stable today in office at 98%, but is short of breath. Follow with pulmonology next week. Taking Trelegy 200/62.5/25 mcg per ACT will discontinue albuterol and trial Airsupra. Given sample in office today, and patient states that she did start feeling better after 1 inhalation. Did discuss the appropriate use. Discussed emergency department criteria/criteria to call the office. All quetsions answered to patients satisfaction. Patient verbalized understanding of diagnosis and treatments explained. To call sooner prior to next visit it any questions/concerns arise. Case discussed with collaborating physician Liliane Stafford who reviewed the assessment and plan. Chart, medications, labs, vital signs reviewed. Dictation was accomplished with the use of [employer] voice recognition software, prone to medical misidentifications [...] Dictation was accomplished with the use of [employer] voice recognition software, which is prone to [...] Dictation was accomplished with the use of [employer] voice recognition software, which is prone to [...] Dictation was accomplished with the use of [employer] voice recognition software, prone to medical misidentifications [...] log exercise and discussed fitness Apps like [employer] which can help keep log off calories [...] Dictation was accomplished with the use of [employer] voice recognition software, prone to medical misidentifications [...] Dictation was accomplished with the use of [employer] voice recognition software, prone to medical misidentifications [...] log exercise and discussed fitness Apps like [employer] which can help keep log off calories [...] Dictation was accomplished with the use of [employer] voice recognition software, prone to medical misidentifications [...] Dictation was accomplished with the use of [employer] voice recognition software, which is prone to medical misidentifications and grammatical errors. This are unintentional and the practitioner does try to identify and correct these, but some could still be present. Please do not hesitate to contact practitioner for clarification. 10/31/2024 Dizzy (ICD-10 - R42) Ashley is a pleasant [...] Dictation was accomplished with the use of [employer] voice recognition software, which is prone to medical misidentifications and grammatical errors. This are unintentional and the practitioner does try to identify and correct these, but some could still be present. Please do not hesitate to contact practitioner for clarification. Plan Of Treatment Pending Test Test Name Order Date Barium [...] ANTIGEN 08/16/2023 STREP PNEUMONIAE ANTIGEN, URINE 08/16/[address] Neck Soft Tissue w/o Contrast 023 LIPID PANEL, STANDARD 05/16/2023 LIPID PANEL, STANDARD 06/10/2022 LIPID PANEL, STANDARD 05/29/2024 LIPID PANEL, STANDARD 11/22/2024 COMPREHENSIVE METABOLIC PANEL 11/22/2024 COMPREHENSIVE METABOLIC PANEL 01/10/2023 COMPREHENSIVE METABOLIC PANEL 10/25/2024 COMPREHENSIVE METABOLIC PANEL 05/29/2024 COMPREHENSIVE METABOLIC PANEL 06/10/2022 COMPREHENSIVE METABOLIC PANEL 05/16/2023 CBC (INCLUDES DIFF/PLT) 05/16/2023 CBC (INCLUDES DIFF/PLT) 06/10/2022 CBC (INCLUDES DIFF/PLT) 05/29/2024 CBC (INCLUDES DIFF/PLT) 10/25/2024 CBC (INCLUDES DIFF/PLT) 01/10/2023 CBC (INCLUDES DIFF/PLT) 11/22/2024 URINALYSIS, COMPLETE 05/29/2024 URINALYSIS, COMPLETE 06/10/2022 URINALYSIS, COMPLETE 05/16/2023 HEMOGLOBIN A1c 05/16/2023 HEMOGLOBIN A1c 05/29/2024 HEMOGLOBIN A1c 10/25/2024 LIPASE 11/22/2024 LIPASE 01/10/2023 AMYLASE 01/10/2023 AMYLASE 11/22/2024 VITAMIN B12 11/22/2024 VITAMIN B12 05/29/2024 T4, FREE 05/29/2024 TSH 05/29/2024 TSH 05/16/2023 T3, FREE 05/29/2024 VITAMIN D,25-OH,TOTAL,IA 06/10/2022 VITAMIN D,25-OH,TOTAL,IA 05/29/2024 VITAMIN D,25-OH,TOTAL,IA 05/16/2023 Next Appt Details Provider Name:MARCIE AMBROCIO, 06/13/2025 08:15:00 AM, [address], [place], [address], Insurance Providers Payer Name Payer Address Payer Phone Subscriber Number Group Number Insured Name Patient Relationship to Insured Coverage Start Date Coverage End Date [employer]age [address] [place] [address] [id number] IRINA BOONE Self - patient is the insured Medical (General) History Medical History History ICD Code GERD without esophagitis K21.9 Essential (primary) hypertension I10 Fibromyalgia M79.7 Hyperlipidemia, mild E78.5 Anxiety F41.9 Insomnia due to medical condition G47.01 Overweight E66.3 Migraines Exertional dyspnea R06.00 Surgical History Surgery Date(Month/Year) cervical surgery Status post cholecystectomy September 2 at [place] [facility]
--- OUTSIDE RECORDS SUMMARY | 2025-04-23 14:05 | XMS_ITS | Data Portability ---
Author Organization [place] - [facility], Allergy Address [address] [address] Care Team Providers Care Paver Operator Name Role Phone ANDI WEST Primary Care Provider [phone] Assessment Encounter Date Assessment Date Assessment LastModified [...] results are available. All questions were answered. elise Not available 01/08/2025 15:28:15 03/11/2025 03/11/2025 74-year-old female presents for reevaluation of sinus pain. CT results were reviewed in detail with patient. There is no sign of chronic sinus disease or need for surgical intervention. She should continue to follow with her neurologist for migraine management. All questions were answered. elise Not available 03/11/2025 10:30:53 Plan of Treatment Reminders Order Date Submit Date Provider Last Modified By Organization Details Last Modified Time Details Appointments None recorded. Lab None recorded. Referral None recorded. Procedures None recorded. Surgeries None recorded. Imaging CT, sinuses, w/o contrast 2024 025 [email or web address] [facility] [place], [address], [place], [address], 5 11:19:23 Medication Orders None recorded. Patient TargetsNo targets recorded. Patient InstructionsNo instructions recorded. Reason for Referral None Reported. Results Created Date Observation Date Name Description Value Unit Range Abnormal Flag Note LastModifiedBy Organization Detail LastModifiedTime 01/23/2001/17/2025 CT, sinus es, w/o contr ast No observ ation record ed. [email or web address] [facility] [place] [address] [facility] [address], [place], [address], 01/22/2025 10:44:52 Result Notes None recorded. Problems Name Problem SNOMED Code Status Onset Date Resolution Date Notes Provider Name and Address Organization Details Recorded Time Bilateral tinnitus 78033266733 02 Active 2021 Tinnitus, bilateral ; Note: Date Diagnosed : 06/01/2022 10:57 AM (H93.13) Not Available [facility] 4 02:35:36 Headache 32356974 Active 2021 Headache, unspecifi ed; Note: Changed from R51 to R51.9 ( 12:07 PM) , Date Diagnosed : 06/01/2022 10:57 AM (R51) Not Available [facility] 4 02:35:35 Dizziness and giddiness 893707059 Active 2021 Dizziness and giddiness ; Note: Date Diagnosed : 06/01/2022 11:14 AM (R42) Not Available [facility] 4 02:35:45 Sensorine ural hearing loss of bilateral ears 759153728 Active 2021 Sensorine ural hearing loss, bilateral ; Note: Date Diagnosed : 06/09/2022 3:29 PM (H90.3) Not Available [facility] 4 02:35:48 Migraine 60733238 Active 2024 TEAGAN GLASER PA-C [address], [place], [place], [address] , [facility] - [facility] 5 15:28:19 Otalgia of right ear 9756876591 Active 2024 TEAGAN GLASER PA-C [address], [place], [place], [address] , [facility] - [facility] 5 15:28:22 Temporoma ndibular joint disorder 64739154 Active 2024 TEAGAN GLASER PA-C [address], [place], [address] , [facility] - [facility] 5 15:28:27 Loss of sense of smell 33662509 Active 2024 TEAGAN GLASER PA-C [address] [place],[address], [place], [place], [address] , [facility] - [facility] 15:28:35 Problem Notes None recorded. Medical Equipment None Reported. Medications Name Sig Start Date Stop Date Status Note LastModified by Organization Details LastModified Time celecoxib 200 mg capsule TAKE 1 CAPSULE BY MOUTH ONCE DAILY active Not Available Not Available No t Available amoxicilli n 500 mg capsule active Medicatio n ID: [id number] Br and Name: amoxicill in Send Method: E-Prescri bed Subs Allowed: subs OK Medica tionGener icName: amoxicill in Not Available Not Available [...] 100 mg capsule active Medicatio n ID: [id number] Br and Name: doxycycli ne hyclate S end Method: E-Prescri bed Subs Allowed: subs OK Medica tionGener icName: doxycycli ne hyclate Not Available Not Available Not Available haloperido l 5 mg tablet active Medicatio n ID: [id number] Br and Name: haloperid ol Send Method: E-Prescri bed Subs Allowed: subs OK Medica tionGener icName: haloperid ol Not Available Not Available Not Available albuterol sulfate 2.5 mg/3 mL (0.083 %) solution for nebulizati on USE 1 VIAL IN NEBULIZER EVERY 6 HOURS NEEDED active Not Available Not Available No t Available trazodone 50 mg tablet active Medicatio n ID: [id number] Br and Name: trazodone Send Method: E-Prescri [...] 15 mg tablet active Medicatio n ID: [id number] Br and Name: meloxicam Send Method: E-Prescri bed Subs Allowed: subs OK Medica tionGener icName: meloxicam Not Available Not Available Not Available prednisone 20 mg tablet active Medicatio n ID: [id number] Br and Name: prednison e Send Method: E-Prescri bed Subs Allowed: subs OK Medica tionGener icName: prednison e Not Available Not Available Not Available amlodipine 5 mg tablet TAKE 1 TABLET BY MOUTH ONCE DAILY active Not Available Not Available No t Available ondansetro n 8 mg disintegra ting [...] TAKE 1 TABLET BY MOUTH TWICE DAILY NEEDED active Not Available Not Available No t Available mirtazapin e 30 mg tablet TAKE 1 TABLET BY MOUTH ONCE DAILY WITH SUPPER active Not Available Not Available No t Available gabapentin 300 mg capsule active Medicatio n ID: [id number] Br and Name: gabapenti n Send Method: E-Prescri bed Subs Allowed: subs OK Medica tionGener icName: gabapenti n Not Available Not Available Not Available omeprazole 20 mg capsule,de layed release active Medicatio n ID: [id number] Br and Name: omeprazol e Send Method: [...] ion aerosol inhaler active Medicatio n ID: [id number] Br and Name: albuterol sulfate S end [...] 125 mg tablet active Medicatio n ID: [id number] Br and Name: amoxicill in-pot clavulana te Send Method: E-Prescri bed Subs Allowed: subs OK Medica tionGener icName: amoxicill in-pot clavulana te Not Available Not Available Not Available escitalopr am 20 mg tablet active Medicatio n ID: [id number] Br and Name: escitalop jordyn oxalate S [...] Not Available Not Available No t Available Yenni Ellipta 200 mcg-62.5 mcg-25 mcg powder for inhalation INHALE 1 PUFF BY MOUTH ONCE DAILY active Not Available Not Available No t Available Vitals Date Recorded Body height Body mass index (BMI) Body weight Provider Name and Address Organization Details Last Updated DateTime 01/08/2025 162.56 cm 28 kg/m2 72152.56 g Keiry Mathias [facility] 01/08/2025 15:05:32 Date Recorded Body height Body mass index (BMI) Body weight Provider Name and Address Organization Details Last Updated DateTime 03/11/2025 162.56 cm 27.5 kg/m2 63002.78 g Jacqueline Thierry [facility] 03/11/2025 10:13:18 Social History None recorded. Functional Status None recorded. Mental Status None recorded. Family History Nothing Reported. Medical History No medical history recorded. Gynecological HistoryNo gynecological history recorded. Obstetrics History GPAL:G 0 P 0 0 0 0 Past Encounters Encounter ID Performer Location Encounter Start Date Encounter Closed Date Diagnosis/Indication Diagnosis SNOMED-CT Code Diagnosis ICD10 Code Diagnosis Note [id number] TEAGAN GLASER PA-C [facility] [address] [address] 01/08/2025 14:45:58 01/08/2025 15:22:20 Migraine 08762974 G43.909 Otalgia of right ear 526 7626046 H92.01 Temporoman dibular joint disorder 06386254 M26.609 Loss of se nse of smell 04318714 R43.0 [id number] TEAGAN GLASER PA-C [facility] [address] [place] [address] 03/11/2025 10:07:55 03/11/2025 10:23:04 Headache 25843535 R51.9 Migraine 51379725 G43.90 9 Temporoman dibular joint disorder 84468001 M26.609 Health Concerns Section Related Observation LastModified by Organization Detai ls LastModified Time None Recorded Concern Status LastModified by Organization Details LastModified Time None Recorded Advance Directives Directive None Recorded Payers Insurance Date Sequence Insurance Name Policy Number Policy Phillips Covered Member ID Phillips Member ID Guarantor Name 03/08/2025 1 [facility]: MEDICARE PPO BLUE (MEDICARE REPLACEMENT PPO) [id number] Irina Erazo [id number] Irina Erazo Notes Date Note Type Note Provider Name and Address Organization Details Recorded Time 01/08/2025 text/html 74-year-old kerwin bradshaw presents for evaluation of possible sinus infection. [...] of smell and taste. TEAGAN GLASER PA-C [address], [address], [facility] 01/08/2025 15:29:24 03/11/2025 text/html 74-year-old kerwin bradshaw presents for reevaluation. Previously evaluated for sinus pain. CT scan was ordered for further evaluation and was negative for sinus disease, OMU occlusion, polyps, or septal deviation with turbinate impingement. Patient is followed by a neurologist for migraines. She receives Botox injections. TEAGAN GLASER PA-C [address], [address], [facility] 03/11/2025 10:31:24 OBGyn Episode No OBEpisode recorded.
--- OUTSIDE RECORDS SUMMARY | 2025-04-23 14:05 | XMS_ITS | Clinical Summary ---
Author Organization [facility] Address [address] [place] [address] Care Team Providers Care Distance Learning Technician Name Role Phone Nicci Stafford MD Primary Care Provider [phone] Allergies Active Allergy Reactions Criticality Noted Date [...] 107 06/11/2024 2:47 PM EDT Temperature 36.1 C (96.9 F) 06/11/2024 2:47 PM EDT Respiratory Rate 16 03/22/2023 11:04 AM EDT [...] 2023-2 5 season) 2024 11/20/2021, 02/17/2021, 01/20/2021 RSV Adult > 60+ Yrs or (1 - 1-dose 75+ series) 2024 Influenza Vaccine (#1) 2025 Hepatitis B Vaccines Aged Out No long er eligible based on patient's age to complete this topic RSV Ped < 20 months Aged Out No longe r eligible based on patient's age to complete this topic Care Teams Distance Learning Technician Relationship Specialty Start Date End Date Nicci Stafford MD [address] [place] [address] PCP - General Internal Medicine 12/21/22
--- OUTSIDE RECORDS SUMMARY | 2025-04-23 14:05 | XMS_ITS ---
Author Name [facility] Organization Unknown History of Medication Use Medication Directions Dispensed Refills Start Date End Date Stat galcanezumab-gnlm (Emgality) 120 MG/ML injection Inject 2 mL (240 mg total) under the skin every 30 (thirty) days. 01/05/2024 active Ubrogepant (Ubrelvy) 50 MG TABS Take 50 mg by mouth 2 (two) times a day as needed (headache). 01/05/2024 active losartan (COZAAR) tablet 25 mg Take 1 tablet (25 mg total) by mouth daily. 03/28/2020 active sucralfate (CARAFATE) 1 g tablet TAKE 1 TABLET BY MOUTH TWICE DAILY ON AN EMPTY STOMACH active Allergies Allergen Reaction Severity Comment Documented Date Source Statu s SULFAMETHOXAZOLE-T RIMETHOPRIM OTHER (SEE COMMENTS) 02/10/2023 CTTHNEMG active Problems Problem Status Onset Date Problem Type Date of Resolution Source Chronic migraine with aura without status migrainosus, not intractable active EncounterDiagnosisAct CTT HNEMG
== END 2025-04-23 13:19 | disposition home or self-care (01) ==
LOC: HO.HPS 13:01
PROVIDERS: PCP Internal Medicine; Visit Provider Internal Medicine Pulmonary Disease
DX: J45.909 Unspecified asthma, uncomplicated (principal); R06.09 Other forms of dyspnea; Z91.09 Other allergy status, other than to drugs and biological substances
CPT/HCPCS: 99214; G2211

== ENCOUNTER → 2025-04-23 13:01 | Outpatient (BNVA) | payer MEDICARE, SELFPAY | PROVIDERS: PCP Internal Medicine; Visit Provider Internal Medicine Pulmonary Disease | DX: Z51.81 Encounter for therapeutic drug level monitoring (principal); Z91.09 Other allergy status, other than to drugs and biological substances; J45.909 Unspecified asthma, uncomplicated; R06.09 Other forms of dyspnea | CPT/HCPCS: 99212 ==

== ENCOUNTER → 2025-05-28 08:21 | Outpatient (REF) | payer MEDICARE, SELFPAY ==
--- OUTSIDE RECORDS SUMMARY | 2023-05-18 06:30 | XMS_ITS | Continuity of Care Document ---
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 [address], [address], [place], [address], [place]. tel:[phone] Referring Provider: Glory Huff, [address], [place], [address]. tel:[phone] [facility], [address] [place] [address] [address], [place], [id number], [place] tel:[phone] [place] Encntr for f/u exam aft trtmt for cond oth than malig neoplmPain in left leg 3 Jose A KITCHEN FACS T ROD Amaral. [address] [place] [address], [place] [address], [place], [address], [place]. tel:[phone] Referring Provider: Glory Huff, [address], [place], [address]. tel:[phone] [facility], [address] [place] [address] [address], [place], [id number], [place] tel:[phone] [place] Pain in left leg 3 Jose A KITCHEN FACS T ROD Amaral. [address] [place] [address], [place] [address], [place], [address], [place]. tel:[phone] Referring Provider: Glory Huff, [address], [place], [address]. tel:[phone] [facility], [address] [place] [address] [address], [place], [id number], [place] tel:[phone] [place] Chronic venous hypertension w inflammation of l low extrem 3 Jose A KITCHEN FACS RVT ROD Amaral. [address] [place] [address], [address], [place], [address], [place]. tel:[phone] Referring Provider: Glory Huff, [address], [place], [address]. tel:[phone] [facility] [place], [address] [place] [address] [address]Mary [place], [id number], [place] tel:[phone] [place] Encntr for f/u exam aft trtmt for cond oth than malig neoplmVenous insufficiency (chronic) (peripheral) 3 Jose A KITCHEN FACS T ROD Amaral. [address], [place] [address], [place], [address], [place]. tel:[phone] Referring Provider: Glory Huff, [address], [place], [address]. tel:[phone] [facility] [place], [address] [place] [address] [address]Mary [place], [id number], [place] tel:[phone] [place] Venous insufficiency (chronic) (peripheral) 3 Jose A KITHCEN FACS Merlin Amaral. [address] [address], [place], [address], [place]. tel:[phone] Referring Provider: Glory Huff, [address], [place], [address]. tel:[phone] Offic/outpt E&m Estab 5 Min Trial - Telemedicine [place] [facility] [place], [address] [place] [address] [address] 1000Mary [place], [id number], [place] tel:[phone] [place] Venous insufficiency (chronic) (peripheral) 3 Jose A KITCHEN FACS Merlin Amaral. [address], [facility] [address], [place], [address], [place]. tel:[phone] Referring Provider: Glory Huff, [address], [place], [address]. tel:[phone] Office/Outpt E&M Established 15 Mins [facility] [place], [address] [place] [address] [address] 1000Mary [place], [id number], [place] tel:[phone] [place] Venous insufficiency (chronic) (peripheral) 3 Jose A Amaral. [address], [place] [address], [place], [address], [place]. tel:[phone] Referring Provider: Glory Huff, [address] [place] [address] Rd, [place], [address]. tel:[phone] [facility], [address] [place] [address] [address], [place], [id number], [place] tel:[phone] [place] Venous insufficiency (chronic) (peripheral) 3 Jose A Amaral. [address] [place] [address], [place] [address], [place], [address], [place]. tel:[phone] Referring Provider: Glory Huff, [address], [place], [address]. tel:[phone] [facility], [address] [place] [address] [address], [place], [id number], [place] tel:[phone] [place] Venous insufficiency (chronic) (peripheral) 3 Jose A Amaral. [address] [place] [address], [place] [address], [place], [address], [place]. tel:[phone] Referring Provider: Glory Huff, [address], [place], [address]. tel:[phone] Office/Oupt E&M New Pt 30 Mins [facility], [address] [place] [address] [address]Mary [place], [id number], [place] tel:[phone] [place] Cramp and spasmVenous insufficiency (chronic) (peripheral)Es sential (primary) hypertensionPe ripheral vascular disease, unspecified 3 Jose A Amaral. [facility] [address] [address], [address], [place], [address], [place]. tel:[phone] Referring Provider: Glory Champagneley, [address], [place], [address]. tel:[phone] Family History Family Member Type Diagnosis Age At Onset No Information Payers Payer name Insurance type Covered democrat ID Murtaza conklin(s) [facility] Medicare Advantage [id number] Social History Type Description Quantity Date Captured [...]
--- OUTSIDE RECORDS SUMMARY | 2024-07-25 09:13 | XMS_ITS | Encounter Summary ---
Author Organization [facility] Address [address] [place] [address] Care Team Providers Care Automation And Control Engineer Name Role Phone Nicci Stafford MD Primary Care Provider [phone] Encounter Details Date Type Department Care Team (Late st Contact Info) Description 07/25/2024 9:13 AM EDT Hospital Encounter TH HISTORIC ENCOUNTERS [facility] ONLY Marita Good MD [address] [place] [phone] Social History Tobacco Use Types Packs/Day Years [...] 2:47 PM EDT documented in this encounter Procedure Notes * Marita Good [...] 8 DAYS per month in average. 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 [...] MUSCLES L side (sites) R side (sites) [employer] Supervisor 5 units (1) 5 units (1) Procerus [...] Care Team (Late st Contact Info) Description 07/05/2025 8:30 AM EDT Office Visit [facility] [address] [phone] Henrietta Pickard PA [address] [place] [phone] 08/07/2025 8:40 AM EST Procedure visit [facility] 175 [facility] [address] [place] [address] Marita Good MD [address] [place] [phone] documented as of this encounter Visit Diagnoses Not on filedocumented in this encounter Care Teams Automation And Control Engineer Relationship Specialty Start Date End Date Nicci Stafford MD PCP - General 07/25/24 10/23/24 documented as of this encounter
--- NOTE | 2025-05-28 08:26 | CA_ITS ---
Acquisition Time: 2025-05-28 08:46:23 Total Exercise Time: 00:05:00 Test Indications: DYSPNEA ON EXRTION Medications: ALBUTEROL PROPRANOLOL Protocol: PATRICIA Max HR: 141 BPM 97% of Pred: 145 BPM Max BP: 144/82 mmHG Max Work Load: 7.0 METS Exercise stress test with exercise 5 mins of Patricia Protocol, achieving 93% MPHR, with reports of SOB and leg pain, no chest pain, with isolated PACs, with normotensive response to exercise. Without any EKG changes meeting criteria for ischemia. In recovery, breathing improved to baseline. Test reviewed with Dr. Fields. Referred By: Dank Kaiser Electronically Signed By: Dioni Nash
--- OUTSIDE RECORDS SUMMARY | 2025-05-28 08:32 | XMS_ITS | Clinical Summary ---
Author Organization [facility] Address [address] [place] [address] Phone Care Team Providers Care Graduate Student Instructor Name Role Phone Andi Stafford MD Primary Care Provider [phone] Allergies Active Allergy Reactions Criticality Noted Date Comments Baclofen 09/10/2024 Sulfamethoxazole-Trimethop rim 02/10/2023 Other Reaction(s): Other (See Comments) Medications atorvastatin (LIPITOR) 20 mg tablet Take 1 tablet (20 mg total) by mouth 1 (one) time each day. Active celecoxib (CeleBREX) 200 mg capsule TAKE 1 CAPSULE Active losartan-hydro CHLOROthiazide (HYZAAR) 100-12.5 mg per tablet 1 tablet Active sucralfate (CARAFATE) 1 gram tablet TAKE 1 TABLET BY MOUTH TWICE DAILY ON AN EMPTY STOMACH Active ascorbic acid (VITAMIN C) 250 MG chewable tablet Chew 1 tablet (250 mg total). Active cholecalcifero l (VITAMIN D-3) 50 mcg (2,000 unit) tablet 1 tablet (2,000 Units total) 1 (one) time each day at the same time. Active calcium carbonate (OS-ARSLAN) 1,250 mg (500 mg elemental calcium) tablet 1 (one) time each day at the same time. Active gabapentin (NEURONTIN) 100 mg capsule 1 (one) time each day at the same time. 08/23/20 24 Active omeprazole OTC (PriLOSEC OTC) 20 mg EC tablet 1 tablet 30 minutes before morning meal Orally NEEDED for 90 days Active venlafaxine XR (EFFEXOR-XR) 37.5 mg 24 hr capsule TAKE 1 CAPSULE BY MOUTH ONCE DAILY WITH FOOD for 90 Active ipratropium-al buteroL (DUONEB) 0.5-2.5 mg/3 mL nebulizer solution 3 mL as needed Inhalation NEEDED for 30 days 07/29/20 23 Active rimegepant (NURTEC) 75 mg dispersible tabletIndicati ons:Chronic migraine without aura without status migrainosus, not intractable 1 po qd PRN migraine 10 tablet 5 05/01/20 25 Active rimegepant (NURTEC) 75 mg dispersible tabletIndicati ons:Chronic migraine without aura without status migrainosus, not intractable 1 po qd PRN migraine 10 tablet 5 09/10/20 24 025 Discontinued(Re order) SUMAtriptan (IMITREX) 50 mg tablet Take 1 tablet (50 mg total) by mouth 1 (one) time if needed for migraine (may repeat x1) for up to 1 dose. May repeat dose once in 2 hours if no relief. Do not exceed 2 doses in 24 hours. 9 tablet 5 02/21/20 25 025 Discontinued(Th erapy completed) rimegepant (NURTEC) 75 mg dispersible tabletIndicati ons:Chronic migraine without aura without status migrainosus, not intractable 1 po qd PRN migraine 10 tablet 5 05/01/20 25 025 Discontinued Hospital, Clinic, or Other Facility Administered Medication Ordered Dose Route Frequency Start Date End Date Status onabotulinumtoxinA (BOTOX) 200 unit injection 200 UnitsIndications:Chronic migraine without aura without status migrainosus, not intractable 200 Units IM Once 05/01/2025 05/01/2025 Ended Active Problems Problem Noted Date Diagnosed [...] Encounters Date Type Department Care Team Description 05/01/2025 8:40 AM EDT Procedure visit [facility] [address] [facility] [address] [place] [address] Mairta Good MD Chronic migraine without aura without status migrainosus, not intractable from Last 3 Months Immunizations Name Administration [...] Description 07/05/2025 8:30 AM EDT Office Visit [facility] [address] [facility] [address] [place] [address] Henrietta Pickard PA [address] [place] [address] 08/07/2025 8:40 AM EST Procedure visit [facility] [address] [facility] [address] [place] [address] Marita Good MD [address] [place] [address] Health Maintenance Due Date Last Done Comments [...] Zoster Vaccines (2 of 3) 07/11/2023 05/16/2023, 12/10/2021 COVID-19 Vaccine (4 - season) 2024 11/20/2021, 02/17/2021, 01/20/2021 RSV Immunization Adult Patients (1 - 1-dose 75+ series) 2024 Hypertension/CHF/CAD Annual BMP Blood Test 09/28/2024 Depression Screening 10/03/2024 Influenza Vaccine (#1) 2025 , 07/07/2023, 07/07/2022, Additional history exists Osteoporosis Screening (Bone Density Screening) 11/23/2031 11/23/2021, 07/30/2019 Breast Cancer Screening Discontinued 11/26/19, 11/23/2021, 11/20/2020, Additional history exists HIB Vaccines [...] Procedure Name Priority Date/Time Associated Diagnosis Comments [facility] SCREENING DIGITAL Routine 11/26/2022 8:02 AM EST Encounter for screening mammogram for malignant neoplasm of breast [facility] DEXA AXIAL SKELETON Routine 11/23/2021 9:28 AM EST Encounter for screening for osteoporosis from Last 3 Months or Most Recently Relevant to Health Maintenance Results * [facility] SCREENING DIGITAL (11/26/2022 8:02 AM EST) Anatomical Region Laterality Modality Mammography 11/25/2022 2:17 PM EST Narrative 11/26/2022 8:02 AM EST [facility] Diagnostic Imaging Department [address] [place] [address] Patient: IRINA ERAZO Rhonda /Age/Sex: 1950 - 72 - F Unit#: [id number] Location/Status: [facility] CLI Mnemonic/Ordering Site: [facility] Ordering Physician: ANDI STAFFORD MD [facility] Screening Digital - 11/25/221517 HISTORY: The patient is a 72-year-old female presenting for routine screening mammography. The patient has a family history of breast cancer involving a sister at age 68, as well as a niece, age not specified. FINDINGS: CC and MLO views of both breasts were obtained using full field digital mammography in the [employer] 2000-D unit. Computer aided detection with the iCAD Second Look 7.2-H was employed. In addition, breast tomosynthesis in MLO projection was performed. The breasts are again seen to be composed of a combination of fatty and fibroglandular elements (scattered areas of fibroglandular density, category B density, as calculated by [employer] Volpara software), as also demonstrated on prior studies [...] Benign Finding PQRI CPT II 3342F Code 48113, 06487 PQRI 225 CPT II 7025F Dictating Physician: RUPALI HARMON MD Electronically Signed by: RUPALI HARMON MD Dic Date/Time: 11/26/22 0758 Sign date/Time: 11/26/22 08 Procedure Note Rupali Harmon MD - 11/04/2023 [facility] Diagnostic Imaging Department [address] [place] [address] Patient: IRINA ERAZO Rhonda /Age/Sex: 1950 - 72 - F Unit#: [id number] Location/Status: [facility] Mnemonic/Ordering Site: [facility] Ordering Physician: ANDI STAFFORD MD [facility] Screening Digital - 11/25/22 - 5313 HISTORY: The patient is a 72-year-old female presenting for routinescreening mammography. The patient has a family history of breast cancer involvinga sister at age 68, as well as a niece, age not specified. FINDINGS: CC and MLO views of both breasts were obtained using fullfield digital mammography in the [employer] 2000-D unit. Computer aideddetection with the [employer] Second Look 7.2-H was employed. In addition, breasttomosynthesis in MLO projection was performed. The breasts are again seen to be composed of a combination of fatty and fibroglandular elements (scattered areas of fibroglandular density,category B density, as calculated by [employer] software), as also demonstratedon prior studies most [...] Benign Finding PQRI CPT II 3342F Code 74959, 02270 PQRI 225 CPT II 7025F Dictating Physician: RUPALI HARMON MD Electronically Signed by: RUPALI HARMON MD Dic Date/Time: 11/26/22 0758 Sign date/Time: 11/26/22 0802 Andi Stafford MD IMG BI PROCEDURES Final Result * [facility] DEXA AXIAL SKELETON (11/23/2021 9:28 AM EST) Anatomical Region Laterality Modality Mammography 11/23/2021 8:58 AM EST Narrative 11/23/2021 9:28 AM EST [facility] Diagnostic Imaging Department [address] [place] [id number] Patient: MELYIRINA Rhonda /Age/Sex: 1950 - 71 - F Unit#: [id number] [facility] Ordering Physician: ACE DUENAS MD [facility] Dexa Axial Skeleton - [...] probability of hip fracture of 6.9%. Code 54794 Dictating Physician: RUPALI HARMON MD Electronically Signed by: RUPALI HARMON MD Dic Date/Time: 11/23/21926 Sign date/Time: 11/23/21927 Procedure Note Rupali Harmon MD - 09/22/2022 [facility] Diagnostic Imaging Department [address] [place] [address] Patient: IRINA ERAZO /Age/Sex: 1950 - 71 - F Unit#: [id number] Location/Status: [facility] CLI Mnemonic/Ordering Site: [facility] Ordering Physician: ACE DUENAS MD [facility] Dexa Axial Skeleton - [...] density of the femurs bilaterally is 0.934 gm/[id number] is 93% of that of young normals [...] probability of hip fracture of 6.9%. Code 10727 Dictating Physician: RUPALI HARMON MD Electronically Signed by: RUPALI HARMON MD Dic Date/Time: 11/23/21926 Sign date/Time: 11/23/21927 Ace Duenas MD IMG BI PROCEDURES Final Result from Last 3 Months or Most Recently Relevant to Health Maintenance Insurance [employer] [place] MEDICARE ADVANTAGE Care Teams Graduate Student Instructor Relationship Specialty Start Date End Date Andi Stafford MD [address] [place] [id number] PCP - General Internal Medicine 10/24/24
--- OUTSIDE RECORDS SUMMARY | 2025-05-28 08:32 | XMS_ITS | Clinical Summary ---
Author Organization [facility] Address [address] [place] [address] Care Team Providers Care Technical Support Intern Name Role Phone Nicci Stafford MD Primary Care Provider [phone] Allergies Active Allergy Reactions Criticality Noted Date [...] age to complete this topic Care Teams Technical Support Intern Relationship Specialty Start Date End Date Nicci Stafford MD [address] [place] [address] PCP - General Internal Medicine 12/21/22
--- OUTSIDE RECORDS SUMMARY | 2025-05-28 08:32 | XMS_ITS | Patient Health Record ---
Author Organization [facility] [address] Address [address] [place] [address] Care Team Providers Care New Car Salesperson Name Role Phone MARCIE ALBRECHT Unavailable [phone] WRIGHTDORIE ELKINS Unavailable [phone] NBA MULLER Unavailable [phone] Allergies Allergen (clinical drug ingredient) Drug/Non Drug Allergy documented on EMR Reaction Allergy Type Onset Date Status sulfamethoxazole / trimethoprim Bactrim Unknown Drug Allergy Active Results Component Value Reference Range Notes EKG Reviewed [...] 0 RR_NumNormalBeats 0 RR_SystolicBP 0 RR_SystolicBP 0 TSH+T4F+T3Free Reviewed date:11/23/2024 08:13:13 AM Interpretation: Performing Lab:[facility] [place], [address] [facility], Phone - [phone], Director - Jose Notes/Report: TSH 0.444 0.450-4.500 uIU/mL Triiodothyronine (T3), Free 3.5 2.0-4.4 pg/mL T4,Free(Direct) 1.59 0.82-1.77 ng/dL Lucero Valladares LP Default Reviewed date:11/23/2024 08:13:13 AM Interpretation: Performing Lab:[facility] [place], [address] [facility], [place], Phone - [phone], Director - Jose Notes/Report: Lucero Valladares LP Default A hand-written panel/profile was received from your office. In accordance with the [facility] Ambiguous Test Code Policy dated April 2003, we have completed your order by using the closest currently or formerly recognized AMA panel. We have assigned Lipid Panel, Test Code #709366 to this request. If this is not the testing you wished to receive on this specimen, please contact the [facility] Client Inquiry/Technical Services Department to clarify the test order. We appreciate your business. Comp. Metabolic Panel (14)-[id number] Reviewed date:11/23/2024 08:11:04 AM Interpretation: [facility]forming [facility], [address] [place] [address], Phone - [phone], Director - [facility] Notes/Report: Glucose 100 70-99 mg/dL BUN 17 [...] IU/L ALT (SGPT) 14 0-32 IU/L Lipid Panel-[id number] Reviewed date:11/23/2024 08:13:13 AM Interpretation: Performing [facility] [place], [address] [place] [address], Phone - [phone], Director - [facility] Notes/Report: Cholesterol, Total 186 100-199 mg/dL Triglycerides 168 0-149 mg/dL HDL Cholesterol 45 >39 mg/dL VLDL Cholesterol Lenny 30 5-40 mg/dL LDL Chol Calc (NIH) 111 0-99 mg/dL Thyroglobulin Antibody-[id number] 5 Reviewed date:11/23/2024 08:13:13 AM Interpretation: Performing [facility] [place], [address] [place] [address], Phone - [phone], Director - Jose Notes/Report: Thyroglobulin Antibody <1.0 0.0-0.9 IU/mL Thyroglobulin Antibody measured by [employer] . It should be noted that the presence of thyroglobulin antibodies may not be pathogenic nor diagnostic, especially at very low levels. The assay instructor of sociology has found that four percent of individuals without evidence of thyroid disease or autoimmunity will have positive TgAb levels up to 4 IU/mL. CBC With Differential/Platel et-[id number] Reviewed date:11/23/2024 08:13:13 AM Interpretation: Performing Lab:[facility], [address] [facility], [place], Phone - [phone], Director - MDJodry Notes/Report: WBC 10.3 3.4-10.8 x10E3/uL RBC 4.60 [...] Immature Grans (Abs) 0.0 0.0-0.1 x10E3/uL Vitamin [id number] Reviewed date:11/23/2024 08:13:13 AM Interpretation: Performing Lab:[facility] [place], [address] [facility], [place], Phone - [phone], Director - MNJodry Notes/Report: Vitamin B12 [phone] pg/mL Lucero Valladares CMP14 Default A hand-written panel/profile was received from your office. In accordance with the [facility] Ambiguous Test Code Policy dated April 2003, we have completed your order by using the closest currently or formerly recognized AMA panel. We have assigned Comprehensive Metabolic Panel (14), Test Code #516674 to this request. If this is not the testing you wished to receive on this specimen, please contact the [facility] Client Inquiry/Technical Services Department to clarify the test order. We appreciate your business. Lipase-[id number] Reviewed date:11/23/2024 08:13:13 AM Interpretation: Performing Lab:[facility] [place], [address] [facility], [place], Phone - [phone], Director - Jose Notes/Report: Lipase 24 14-85 U/L Amylase-[id number] Reviewed date:11/23/2024 08:13:13 AM Interpretation: Performing Lab:[facility] [place], [address] [facility], [place], Phone - [phone], Director - Jose Notes/Report: Amylase 57 31-110 U/L CR Spine Lumbar 2 or 3 Views Reviewed date:05/30/2024 09:31:30 AM Interpretation: Performing Lab: Notes/Report: Original Ordering Provider: DORIE MUÑOZ PA-C [facility] FREE T3 Reviewed date:05/31/2024 08:41:20 AM Interpretation: [...] date:05/31/2024 08:41:20 AM Interpretation: Performing Lab: Notes/Report: [employer], a member of [address] [address] Nurse Practitioner Hospitalist - Natasha Rangel MD TSH 0.51 0.40-4.00 [...] Original Ordering Provider: MARCIE ALBRECHT PA-C (EMERY) [employer], [place] [address] Nurse Practitioner Hospitalist - Natasha Rangel MD WBC 10.1 4.8-10.8 [...] Lab: Notes/Report: Original Ordering Provider: MARCIE STOLL (EMERY)[employer], [place] [address] Nurse Practitioner Hospitalist - Natasha Rangel MD GLYCATED HEMOGLOBIN A1C 6.3 <6.5 % ESTIMATED AVERAGE GLUCOSE 134 URINALYSIS Reviewed date:05/31/2024 08:41:20 AM Interpretation: Performing Lab: Notes/Report: Note Original Ordering Provider: MARCIE STOLL (EMERY)[employer], [place] [address] Nurse Practitioner Hospitalist - Natasha Rangel MD GLUCOSE, (UA) NEGATIVE NEGATIVE mg/dL BILIRUBIN, URINE NEGATIVE NEGATIVE KETONE, URINE NEGATIVE NEGATIVE mg/dL SPECIFIC GRAVITY, URINE 1.020 1.003-1.030 BLOOD, URINE NEGATIVE NEGATIVE PH, URINE 6.0 5.0-8.0 PROTEIN, URINE NEGATIVE <= TRACE mg/dl UROBILINOGEN, URINE 1.0 0.2-1.0 E.U./dL NITRITE, URINE NEGATIVE NEGATIVE LEUKOCYTE ESTERASE, URINE SMALL NEGATIVE Note Original Ordering Provider: MARCIE STOLL (EMERY)[employer], a member of [address] [place] [address] Nurse Practitioner Hospitalist - Natasha Rangel MD RBC, URINE 1 0-4 /HPF WBC, URINE 8 0-4 /HPF EPITH CELLS, URINE 41 0-60 /LPF BACTERIA, URINE LIGHT NEGATIVE Reason For Referral Reason [facility] Diagnosis 1 Spinal arthritis (M4 7.819) Referral Organization [facility] Referring Provider First Name MARCIE Referring Provider Last Name AMBROCIO Ref[facility] Referred Provider Specialty Physical The rapist General Notes JOYASTEPHANIE IRVING 0 05/30/2024 09:35:27 AM >info sent to both office and to patient- pt can call and book- pt has number Referral Priority Routine Diagnosis 1 Back pain, unspecifi ed back location, unspecified back pain laterality, unspecified chronicity (M54.9) Diagnosis 2 Lumbar foraminal ana nosis (M48.061) Referral Organization [facility] Referring Provider First Name DORIE Referring Provider Last Name KYLE [facility] Referred Provider Specialty Neurosurgery General Notes Karen Marks 2023 11:45:13 AM >faxed to douglas [phone] p [phone] with mri Clinical Notes Navjot Talbert 02:47:25 PM > The patient was seen on on 10/10/24 Referral Priority Routine Reason Evaluate & Treat Diagnosis 1 Serous otitis media, unspecified chronicity, unspecified laterality (H65.90) Referral Organization [facility] Referring Provider First Name DORIE Referring Provider Last Name YKLE Referring Provider Speciality Internal edicine Referred Provider Specialty Ear, nose an d throat surgeon General Notes Anjali Singleton 12/02 02:26:26 PM >Filled out form for ENT and faxed over with recent notes., [phone], [phone] Clinical Notes Navjot Talbert 03:33:27 PM > [...] Celecoxib 200 MG Take 1 capsule by [facility] once daily; Duration: 90 Active LORazepam 0.5 MG Take 1 tablet by twice daily as needed; Duration: 30 05/10/2025 Active Calcium 500 MG 1 tablet with meals Orally once daily Active Trelegy Ellipta 200-62.5-25 MCG/ACT 1 puff Inhalation Once a day Active Vitamin D 50 MCG (1999) 1 [...] Status Risk Notes Problem Vitamin D deficiency (39695364) Vitamin D deficiency, unspecified (E55.9) Active confirmed Problem Hyperlipidemia (10465683) Hyperlipidemia, unspecified (E78.5) Active confirmed Problem Insomnia (676938572) Insomnia due to medical condition (G47.01) Active confirmed Problem Reactive airway disease (083294283729) Airway disease due to other specific organic dusts (J66.8) Active confirmed Problem Cholelithiasis without obstruction (58062602) Calculus of gallbladder without cholecystitis without obstruction (K80.20) Active confirmed Problem Fibromyalgia (739489896) Fibromyalgia (M79.7) Active confirmed Problem Snoring (20644428) Snoring (R06.83) Active conf irmed Problem Epigastric pain (63236331) Epigastric pain (R10.13) Active confirmed Problem C-reactive protein abnormal (282920994) Elevated C-reactive protein (CRP) (R79.82) Active confirmed Problem Adult health examination (928226810) Encounter for general adult medical examination without abnormal findings (Z00.00) Active confirmed Problem Abnormal blood pressure (94238121) Encounter for examination of blood pressure with abnormal findings (Z01.31) Active confirmed Problem Diabetes mellitus screening (302643483) Encounter for screening for diabetes mellitus (Z13.1) Active confirmed Problem Screening for cardiovascular system disease (528893261) Encounter for screening for cardiovascular disorders (Z13.6) Active confirmed Problem Prediabetes (587593924) Prediabetes (R73.03) Active confirmed Problem Neuropathy (855262329) Neuropathy (G62.9) Active confirmed Problem Hyperlipidaemia (70514729) Hyperlipidemia, unspecified hyperlipidemia type (E78.5) Active confirmed Problem Migraine (23772449) Migraine without status migrainosus, not intractable, unspecified migraine type (G43.909) Active confirmed Problem Anxiety (85969119) Anxiety (F41.9) Active confi rmed Problem Hypothyroidism (08888458) Hypothyroidism, unspecified type (E03.9) Active confirmed Problem Vitamin D deficiency (49728164) Vitamin D deficiency (E55.9) Active confirmed Problem Obesity (443178517) Obesity (BMI 30-39.9) (E66.9) Active confirmed Problem Headache (73367895) Headache, unspecified (R51.9) Active confirmed Problem New daily persistent headache (disorder) (865747020927821) Persistent headaches (R51.9) Active confirmed Problem Amnesia (60091678) Memory change (R41.3) Active confirmed Problem Vitamin B>12< deficiency anaemia (36524238) Anemia due to vitamin B12 deficiency, unspecified B12 deficiency type (D51.9) Active confirmed Problem Primary hypertension (64960540) Primary hypertension (I10) Active confirmed Problem Moderate recurrent major depression (75477752) Moderate episode 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) Active confirmed Problem Peripheral vascular disease (809217078) Claudication of both lower extremities (I73.9) Active confirmed Problem Liver disease (884852922) Hepatic lesion (K76.9) Active confirmed Problem Claudication (75354224) Claudication (I73.9) Active confirmed Problem CT of abdomen abnormal (23723940170991629 ) Abnormal CT of the abdomen (R93.5) Active confirmed Problem Asthma (929989093) Asthma (J45.909) Active conf irmed Problem Lipid screening (995833308) Lipid screening (Z13.220) Active confirmed Problem Low back pain (finding) (305682767) Lumbar back pain (M54.50) Active confirmed Problem Globus sensation (975412808) Globus sensation (R09.A2) Active confirmed Problem Spondylosis without myelopathy (86632021) 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) Active confirmed Problem Cervical arthritis (145430948) Cervical arthritis (M47.812) Active confirmed Problem Lumbar spinal stenosis (19079006) Lumbar foraminal stenosis (M48.061) Active confirmed Problem Non-suppurative otitis media (050500008) Serous otitis media, unspecified chronicity, unspecified laterality (H65.90) Active confirmed Vital Signs Heart Rate 97 /min 03/12/2025 Oximetry 97 % 03/12/2025 Blood pressure diastolic 70 mm Hg 03/12/2025 Height 61 in 03/12/2025 Blood pressure systolic 138 mm Hg 03/12/2025 Weight 163.4 lbs 03/12/2025 BMI 30.87 kg/m2 03/12/2025 Encounters Encounter Location Date Provider Diagnosis [facility] [address] [place] [address] 05/29/2024 MARCIE ALBRECHT Migraine without sta tus migrainosus, not intractable, unspecified migraine type G43.909 ; Asthma J45.909 ; Anxiety F41.9 ; Insomnia due to medical condition G47.01 and Sciatic nerve pain, unspecified laterality M54.[address] [address] 08/23/2024 MARCIE AMBROCIO Lumbar back pain M54 .50 ; Medicare annual wellness visit, subsequent Z00.00 ; Depression screen Z13.31 ; Encounter for screening for other disorder Z13.89 ; Obesity (BMI 30-39.9) E66.9 and Advanced care planning/counseling discussion Z71.[address] [facility] [address] 10/25/2024 MARCIE ALBRECHT Obesity (BMI 30-39.9 ) E66.9 ; Primary hypertension I10 ; Prediabetes R73.03 ; Anxiety F41.9 and Insomnia due to medical condition G47.[address] 10/31/2024 NBA MULLER Acute upper respirat ory infection, unspecified J06.9 ; Fibromyalgia M79.7 ; Primary hypertension I10 ; Anxiety F41.9 ; Headache, unspecified R51.9 and Dizzy R42 [facility] 11/22/2024 MARCIE ALBRECHT Shortness of breath R06.02 ; Acute upper respiratory infection, unspecified J06.9 ; Fibromyalgia M79.7 ; Anxiety F41.9 ; Headache, unspecified R51.9 and Dizzy R42 [facility] 12/25/2024 MARCIE ALBRECHT Primary hypertension I10 ; Insomnia due to medical condition G47.01 ; Asthma J45.909 and Fibromyalgia M79.[address] 03/06/2025 DORIE WRIGHT Primary hypertension I10 ; Encounter for examination of blood pressure with abnormal findings Z01.31 and Anxiety F41.[address] 03/12/2025 MARCIE ALBRECHT Shortness of breath R06.02 ; Primary hypertension I10 ; Anxiety F41.9 and Encounter for examination of blood pressure with abnormal findings Z01.31 [facility] [address] [place] [address] 06/13/2024 DORIE KIMBALLNER [facility] [address] [place] [address] 08/23/2024 DORIE KIMBALLNER [facility] [address] [place] [address] 10/30/2024 MARCIE AMBROCIO [facility] [address] [place] [address] 10/31/2024 NBA DEXTERR [facility] [address] [place] [address] 11/20/2024 MARCIE AMBROCIO [facility] [address] [place] [address] 11/22/2024 DORIE KIMBALLNER [facility] [address] [place] [address] 03/25/2025 MARCIE ALBRECHT [facility] [address] [place] [address] 04/01/2025 DORIE KIMBALLNER Assessments Encounter Date Diagnosis (ICD Code) Assessment [...] Dictation was accomplished with the use of [employer] voice recognition software, prone to medical misidentifications [...] Dictation was accomplished with the use of [employer] voice recognition software, prone to medical misidentifications [...] log exercise and discussed fitness Apps like Levlr which can help keep log off calories [...] Dictation was accomplished with the use of [employer] voice recognition software, prone to medical misidentifications [...] log exercise and discussed fitness Apps like [employer] which can help keep log off calories [...] Dictation was accomplished with the use of [employer] voice recognition software, prone to medical misidentifications [...] Dictation was accomplished with the use of [employer] voice recognition software, prone to medical misidentifications [...] Dictation was accomplished with the use of [employer] voice recognition software, prone to medical misidentifications [...] Dictation was accomplished with the use of [employer] voice recognition software, which is prone to [...] Dictation was accomplished with the use of [employer] voice recognition software, which is prone to [...] Dictation was accomplished with the use of Dragon voice recognition software, which is prone to [...] Dictation was accomplished with the use of [employer] voice recognition software, which is prone to [...] Dictation was accomplished with the use of [employer] voice recognition software, which is prone to medical misidentifications and grammatical errors. This are unintentional and the practitioner does try to identify and correct these, but some could still be present. Please do not hesitate to contact practitioner for clarification. 12/25/2024 Insomnia due to medical condition (ICD-10 - G47.01) #Chronic Exertional Dyspnea : Sees guideman and was prescribed Trelegy Ellipta for her dyspnea. She reports some relief of her congestion symptoms from the nasal solution prescribed by the guideman. Continued use of Trelegy Ellipta should be [...] Dictation was accomplished with the use of [employer] voice recognition software, prone to medical misidentifications [...] - I10) #Chronic Exertional Dyspnea : Sees guideman and was prescribed Trelegy Ellipta for her dyspnea. She reports some relief of her congestion symptoms from the nasal solution prescribed by the guideman. Continued use of Trelegy Ellipta should be [...] Dictation was accomplished with the use of [employer] voice recognition software, prone to medical misidentifications [...] Dictation was accomplished with the use of [employer] voice recognition software, prone to medical misidentifications [...] Dictation was accomplished with the use of [employer] voice recognition software, prone to medical misidentifications [...] Dictation was accomplished with the use of [employer] voice recognition software, prone to medical misidentifications [...] Dictation was accomplished with the use of [employer] voice recognition software, prone to medical misidentifications [...] Dictation was accomplished with the use of [employer] voice recognition software, prone to medical misidentifications [...] Dictation was accomplished with the use of [employer] voice recognition software, prone to medical misidentifications and grammatical errors. This is unintentional and the practitioner does try to identify and correct these, but some could still be present. Please do not hesitate to contact practitioner for clarification. 12/25/2024 Asthma (ICD-10 - J45.909) #Chronic Exertional Dyspnea : Sees guideman and was prescribed Trelegy Ellipta for her dyspnea. She reports some relief of her congestion symptoms from the nasal solution prescribed by the guideman. Continued use of Trelegy Ellipta should be [...] Dictation was accomplished with the use of [employer] voice recognition software, prone to medical misidentifications [...] Dictation was accomplished with the use of [employer] voice recognition software, which is prone to [...] Dictation was accomplished with the use of [employer] voice recognition software, prone to medical misidentifications [...] log exercise and discussed fitness Apps like Levlr which can help keep log off calories [...] Dictation was accomplished with the use of [employer] voice recognition software, prone to medical misidentifications [...] Dictation was accomplished with the use of Dragon voice recognition software, prone to medical misidentifications [...] Dictation was accomplished with the use of [employer] voice recognition software, prone to medical misidentifications [...] log exercise and discussed fitness Apps like Lev[employer] which can help keep log off calories [...] Dictation was accomplished with the use of [employer] voice recognition software, prone to medical misidentifications [...] Dictation was accomplished with the use of [employer] voice recognition software, prone to medical misidentifications [...] Dictation was accomplished with the use of [employer] voice recognition software, which is prone to medical misidentifications and grammatical errors. This are unintentional and the practitioner does try to identify and correct these, but some could still be present. Please do not hesitate to contact practitioner for clarification. 12/25/2024 Fibromyalgia (ICD-10 - M79.7) #Chronic Exertional Dyspnea : Sees guideman and was prescribed Trelegy Ellipta for her dyspnea. She reports some relief of her congestion symptoms from the nasal solution prescribed by the guideman. Continued use of Trelegy Ellipta should be [...] Dictation was accomplished with the use of [employer] voice recognition software, prone to medical misidentifications [...] Dictation was accomplished with the use of [employer] voice recognition software, which is prone to medical misidentifications and grammatical errors. This are unintentional and the practitioner does try to identify and correct these, but some could still be present. Please do not hesitate to contact practitioner for clarification. 03/12/2025 Encounter for examination of blood pressure [...] Dictation was accomplished with the use of [employer] voice recognition software, prone to medical misidentifications [...] Dictation was accomplished with the use of [employer] voice recognition software, which is prone to [...] Dictation was accomplished with the use of [employer] voice recognition software, which is prone to [...] Dictation was accomplished with the use of [employer] voice recognition software, prone to medical misidentifications [...] log exercise and discussed fitness Apps like Levlr which can help keep log off calories [...] Dictation was accomplished with the use of [employer] voice recognition software, prone to medical misidentifications [...] Dictation was accomplished with the use of [employer] voice recognition software, prone to medical misidentifications [...] log exercise and discussed fitness Apps like [employer] which can help keep log off calories [...] Dictation was accomplished with the use of [employer] voice recognition software, prone to medical misidentifications [...] Dictation was accomplished with the use of [employer] voice recognition software, which is prone to [...] Dictation was accomplished with the use of [employer] voice recognition software, which is prone to [...] 06/10/2022 Next Appt Details Provider Name:MARCIE ALBRECHT, 06/13/2025 08:15:00 AM, [address], [place], [address], Insurance Providers Payer Name Payer Address Payer Phone Subscriber Number Group Number Insured Name Patient Relationship to Insured Coverage Start Date Coverage End Date [employer] Advantage [address] [place] [address] [phone] [id number] IRINA BOONE Self - patient is the insured Medical (General) History Medical History History ICD Code GERD without esophagitis K21.9 Essential (primary) hypertension I10 Fibromyalgia M79.7 Hyperlipidemia, mild E78.5 Anxiety F41.9 Insomnia due to medical condition G47.01 Overweight E66.3 Migraines Exertional dyspnea R06.00 Surgical History Surgery Date(Month/Year) cervical surgery Status post cholecystectomy September 2 at [facility]
== END ==
LOC: HO.CARD 08:21
PROVIDERS: PCP Internal Medicine; Visit Provider Internal Medicine Pulmonary Disease
DX: R06.09 Other forms of dyspnea (principal); Z79.899 Other long term (current) drug therapy
CPT/HCPCS: 93017

== ENCOUNTER → 2025-05-28 08:26 | Outpatient (BNV) | payer MEDICARE, SELFPAY | PROVIDERS: PCP Internal Medicine | DX: I49.1 Atrial premature depolarization (principal); R06.02 Shortness of breath | CPT/HCPCS: 93016; 93018 ==

== ENCOUNTER 2025-07-29 10:16 | Outpatient (AMB) | payer MEDICARE, SELFPAY ==
--- OUTSIDE RECORDS SUMMARY | 2024-07-25 09:13 | XMS_ITS | Encounter Summary ---
Author Organization [facility] Address [address] [place] [address] Care Team Providers Care Mixer Lever Operator Name Role Phone Nicci Stafford MD Primary Care Provider [phone] Encounter Details Date Type Department Care Team (Late st Contact Info) Description 07/25/2024 9:13 AM EDT Hospital Encounter TH HISTORIC ENCOUNTERS [facility] ONLY Marita Good MD [address] [place] [id number] Social History Tobacco Use Types Packs/Day Years Used Date Smoking Tobacco: Never Smokeless Tobacco: Never Alcohol Use Standard Drinks/Week Comments Never 0 (1 standard drink = 0.6 oz pur e alcohol) Comments Unknown Sex and Gender Information Value Date Recorded Sex Assigned at Not on file Legal Sex Female 4:23 PM EST Gender Identity Not on file Sexual Orientation Not on file documented as of this encounter Last Filed Vital Signs Vital Sign Reading Time Taken Comments Blood Pressure - - Pulse - - Temperature - - Respiratory Rate - - Oxygen Saturation - - Inhaled Oxygen Concentration - - Weight 78.1 kg (172 lb 3.2 oz) 06/11/2024 2:47 P M EDT Height 157.5 cm (5' 2 ) 06/11/2024 2:47 PM EDT Body Mass Index 31.5 06/11/2024 2:47 PM EDT documented in this encounter Functional Status * Calculated C-SSRS Risk Score (Lifetime/Recent) Answer Date of Assessment Author No Risk Indicated 02/18/2025 9:07 AM EDT Akiko Boyle RN * [place] Suicide Severity Rating Scale (Screener/Recent Self-Report) Question Answer Date of Assessment Author 1. Wish to be (Past 1 Month) No 025 9:07 AM EDT Eloise Boyle RN 2. Non-Specific Active Suici mc Thoughts (Past 1 Month) No 02/18/2025 9:07 AM EDT Cici Boyle RN 6. Suicidal Behavior (Lifetime) No 9:07 AM EDT Eloise Boyle RN documented as of this encounter Procedure Notes * Marita Good MD - 07/25/2024 9:20 AM EDT Procedures The patient reports no side effect with the use of Botox. The patient reports improvement in headaches by at least 50 % since last injection. At baselines the patient had days20 out of 30 days of headaches. 7/10 , 24 Hhrs and after botox 8 DAYS per month in average. 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 It was explained to the patient that botulinum toxin effects may not be felt for about 2 weeks. Side effects may include injection site pain, injection site swelling, bruising, infection, flu- like symptoms, diplopia, dysphagia, neck weakness. Skin was prepped with alcohol pads. 200 units of Botox (botulinum toxin type A) was dissolved in 4 ml of sterile normal saline solution. Lot Number:see MAR Patient had injection of the following with a 30G needle attached to a 1 ml insulin syringe: MUSCLES L side (sites) R side (sites) Shed Boss 5 units (1) 5 units (1) Procerus 5 units (central) Frontalis 10 units (2) 10 units (2) Temporalis 20 units (4) 20 units (4) Occipitalis 15 units (3) 15 units (3) Cervical Paraspinal 10 units (2) 10 units (2) Trapezius 15 units (3) 15 units (3) Total injected: 155 units Total Wasted: 45 units Injection sites were watched closely to confirm hemostasis. No complications were observed with today's procedure.The patient tolerated the procedure well. Information hand out was provided to the patient. I asked the patient to call me with any problems. Patient was instructed not to massage or use heat over the injected site for 24 hours. I asked the patient to call me with any issues and to follow up with me for repeat injection in 3 months. documented in this encounter Plan of Treatment Upcoming Encounters Date Type Department Care Team (Late st Contact Info) Description 08/07/2025 8:40 AM EST Procedure visit [address] [phone] Marita Good MD [address] [place] [phone] 10/08/2025 9:30 AM EST Office Visit [facility] [address] [phone] Henrietta Pickard PA [address] [address] documented as of this encounter Visit Diagnoses Not on filedocumented in this encounter Care Teams Mixer Lever Operator Relationship Specialty Start Date End Date Nicci Stafford MD PCP - General 07/25/24 10/23/24 documented as of this encounter
[2025-07-29 10:20] VITALS: BP 144/67; PULSE 86; O2SAT 99; BMI 29.0
--- NOTE | 2025-07-29 10:20 | MHC.OFFVIS ---
Vital Signs 07/29/25 10:20 Height 5 ft 3 in Weight 164 lb BMI 29.0 BP 144/67 H Blood Pressure Location Rt brachial Position Sitting Pulse 86 Pulse Source Pulse Oximeter Pulse Oximetry (%) 99 Oxygen Delivery Method Room Air Intake Visit Reasons: Dyspnea Allergies Bactrim Allergy (Mild, Uncoded 10/20/23 09:23) Rash HPI HPI Dyspnea: Details: 75-year-old lady, nonsmoker, followed for asthma and allergies. She has been using Trelegy with reasonable, but not complete control of her symptoms, however it is very expensive for her when she hits [employer], at that time she is using AirDuo. She denies recent exacerbations. She has completed her RAST testing that was essentially negative. Her asthma symptoms are well controlled. She did complete her stress test that was also normal. [facility] Medical History Depression Anxiety HLD (hyperlipidemia) HTN (hypertension) Gallbladder calculus Surgical History S/P spinal surgery Family History Mother History of brain cancer Father AA (aortic aneurysm) Social History Alcohol intake: never Patient Tobacco Use Status: Never used Tobacco Review of Systems Const Denies daytime sleepiness, Denies excessive sweating, Denies fatigue, Denies fever(s), Denies lethargy, Denies malaise, Denies night sweats, Denies snoring and Denies weight loss Eyes Denies blurry vision and Denies itchy eyes ENT Denies nasal congestion, Denies post nasal drip, Denies sinus pain, Denies sinus pressure and Denies other ( Thrush) Card Denies chest pain, Denies pedal edema, Denies dyspnea, Denies orthopnea and Denies paroxysmal nocturnal dyspnea Resp Denies cough, Denies hemoptysis, Denies excessive phlegm production, Denies dyspnea, Denies snoring and Denies wheezing GI Denies abdominal pain and Denies heartburn Musc Denies myalgias, Denies arthralgias and Denies joint swelling Skin/Breast Denies rash Neuro Denies memory loss and Denies seizure-like activity Psych Denies abnormal sleep pattern, Denies anxiety and Denies memory loss Endo Denies excessive sweating, Denies fatigue and Denies heat intolerance Chao/Lymph Denies easy bruising Aller/Immun Denies itchy eyes, Denies seasonal rhinorrhea and Denies wheezing Physical Exam Vital Signs: Last Vital Signs Pulse 86 07/29/25 10:20 BP 144/67 H 07/29/25 10:20 Pulse Ox 99 07/29/25 10:20 Oxygen Delivery Method Room Air 07/29/25 10:20 BMI result Body Mass Index 29.0 Const General: no acute distress and alert Nutritional Appearance: not obese Orientation/consciousness: Other orientation findings ( oriented) HEENT Head: Yes atraumatic Eyes General: appearance normal, both eyes and all related structures Sclerae: sclerae normal EOM: EOMs intact bilaterally Neck Neck: Yes supple Lymphatic: no lymphadenopathy noted Resp Effort & Inspection: normal respiratory effort and no use of accessory muscles Auscultation: clear to auscultation bilaterally Cardio Rate: regular rate Rhythm: regular rhythm Heart sounds: no gallops, no murmurs and no rubs Skin General skin exam: other ( warm) Extrem General: No clubbing, No cyanosis and No edema Assessment & Plan Assessment & Plan (1) Reactive airway disease: Code(s): J45.909 - Unspecified asthma, uncomplicated Category: Medical Plan: Well controlled on current regimen of Trelegy and albuterol MDI. Continue current regimen. (2) Environmental allergies: Code(s): Z91.09 - Other allergy status, other than to drugs and biological substances Category: Medical Plan: Well controlled on as needed nasal ipratropium. Continue current regimen. (3) Shortness of breath on exertion: Code(s): R06.02 - Shortness of breath Category: Medical Plan: Results of stress test reviewed and are essentially normal. At this time appears to be related mostly to deconditioning. Patient has been advised on graded exercise regimen. Coding Level of Care Code Est Pt Level 4 (95981) Complex EM visit Add On G2211 Diagnoses Reactive airway disease J45.909 Environmental allergies Z91.09 Shortness of breath on exertion R06.02
--- OUTSIDE RECORDS SUMMARY | 2025-07-29 12:23 | XMS_ITS | Clinical Summary ---
Author Organization [facility] Address [address] [place] [address] Care Team Providers Care Civil Engineering Project Manager Name Role Phone Nicci Stafford MD Primary Care Provider [phone] Allergies Active Allergy Reactions Criticality Noted Date [...] Vaccine (1 of 1 - PCV) 2014 RSV Adult > 60+ Yrs or (1 - 1-dose 75+ series) 2024 COVID-19 Vaccine (4 - 2024-2 6 season) 2025 11/20/2021, 02/17/2021, 01/20/2021 Influenza Vaccine (#1) 2025 Hepatitis B Vaccines Aged Out No long er eligible based on patient's age to complete this topic RSV Ped < 20 months Aged Out No longe r eligible based on patient's age to complete this topic Care Teams Civil Engineering Project Manager Relationship Specialty Start Date End Date Nicci Stafford MD [address] [place] [address] PCP - General Internal Medicine 12/21/22
--- OUTSIDE RECORDS SUMMARY | 2025-07-29 12:23 | XMS_ITS | Clinical Summary ---
Author Organization [facility] Address [address] [place] [address] Phone Care Team Providers Care Apiarist Name Role Phone Andi Stafford MD Primary Care Provider [phone] Allergies Active Allergy Reactions Criticality Noted Date [...] Chew 1 tablet (250 mg total). Active cholecalciferol (VITAMIN D-3) 50 mcg (2,000 [...] Inhalation NEEDED for 30 days 3 Active rimegepant (NURTEC) 75 mg dispersible tabletIndication s:Chronic migraine without aura without status migrainosus, not intractable 1 po qd PRN migraine 10 tablet 5 5 Active omeprazole (PriLOSEC) [address] capsule Take 1 capsule (20 mg total) by mouth 1 (one) time each day. 5 Active LORazepam (ATIVAN) 0.5 mg tablet Take 1 tablet (0.5 mg total) by mouth 2 (two) times a day if needed. 5 Active Active Problems Problem Noted Date [...] Encounters Date Type Department Care Team Description 07/05/2025 8:30 AM EDT Office Visit [address] [place] [address] Henrietta Pickard PA Chronic migraine without aura without status migrainosus, not intractable (Primary Dx) 05/01/2025 8:40 AM EDT Procedure visit [facility] [address] [facility] [address] [place] [address] Marita Good MD Chronic migraine without aura without status migrainosus, not intractable from Last 3 Months Immunizations Immunization Administration Dates Next Due Influenza Quadravalent, 0.5m [...] Sign Reading Time Taken Comments Blood Pressure 151/69 07/05/2025 8:26 AM EDT Pulse 87 07/05/2025 8:26 AM EDT Temperature 36.7 C (98 F) 07/05/2025 8:26 AM EDT Respiratory Rate 18 02/18/2025 9:08 AM EDT Oxygen Saturation 98% 07/05/2025 8:26 AM EDT Inhaled Oxygen Concentration - - Weight 73 kg (161 lb) 02/20/2025 11:26 AM EDT Height 157.5 cm (5' 2 ) 02/18/2025 9:08 AM EDT Body Mass Index 29.45 02/18/2025 9:08 AM EDT Plan of Treatment Upcoming Encounters Date Type Department Care Team (Late st Contact Info) Description 08/07/2025 8:40 AM EST Procedure visit [address] [phone] Marita Good MD [address] [place] [phone] 10/08/2025 9:30 AM EST Office Visit [address] [phone] Henrietta Pickard PA [address] [address] Health Maintenance Due Date Last Done Comments Colorectal Cancer Screening: Colonoscopy 1950 Hepatitis A Vaccines (1 of 2 - Risk 2-dose series) 1968 Hepatitis B Vaccines (1 of 3 - Risk 3-dose series) 2009 DTaP,Tdap,and Td Vaccines (2 - Td or Tdap) 01/27/2011 01/27/2001 Pneumococcal Vaccine: 50+ Years (2 of 2 - PPSV23, PCV20, or PCV21) 09/29/2018 08/04/2018 Cholesterol Screening (Lipid Panel) 09/01/2022 Falls Risk Assessment 09/01/2022 Hepatitis C Screening 09/01/2022 Medicare Annual Wellness Visit 09/01/2022 Social Influencers of Health Screening 09/01/2022 Zoster Vaccines (2 of 3) 07/11/2023 05/16/2023, 12/10/2021 RSV Immunization Adult Patients (1 - 1-dose 75+ series) 2024 Hypertension/CHF/CAD Annual BMP Blood Test 09/28/2024 Depression Screening 10/03/2024 COVID-19 Vaccine ( season) 2025 11/20/2021, 02/17/2021, 01/20/2021 Influenza Vaccine (#1) 2025 4, 07/07/2023, 07/07/2022, [...] Procedure Name Priority Date/Time Associated Diagnosis Comments [facility] SCREENING DIGITAL Routine 11/26/2022 8:02 AM EST Encounter for screening mammogram for malignant neoplasm of breast [facility] DEXA AXIAL SKELETON Routine 11/23/2021 9:28 AM EST Encounter for screening for osteoporosis from Last 3 Months or Most Recently Relevant to Health Maintenance Results * [facility] SCREENING DIGITAL (11/26/2022 8:02 AM EST) Anatomical Region Laterality Modality Mammography 11/25/2022 2:17 PM EST Narrative 11/26/2022 8:02 AM EST [facility] Diagnostic Imaging Department [address] [place] [address] Patient: IRINA ERAZO /Age/Sex: 1950 - 72 - F Unit#: [id number] Location/Status: [facility] CLI Mnemonic/Ordering Site: [facility] Ordering Physician: ANID STAFFORD MD Taina Screening Digital - 11/25/221517 HISTORY: The patient is a 72-year-old female presenting for routine screening mammography. The patient has a family history of breast cancer involving a sister at age 68, as well as a niece, age not specified. FINDINGS: CC and MLO views of both breasts were obtained using full field digital mammography in the [employer]ora Blackographe 2000-D unit. Computer aided detection with the iCAD Second Look 7.2-H was employed. In addition, breast tomosynthesis in MLO projection was performed. The breasts are again seen to be composed of a combination of fatty and fibroglandular elements (scattered areas of fibroglandular density, category B density, as calculated by [employer] software), as also demonstrated on prior [...] Benign Finding PQRI CPT II 3342F Code 85258, 33926 PQRI 225 CPT II 7025F Dictating Physician: RUPALI HARMON MD Electronically Signed by: RUPALI HARMON MD Dic Date/Time: 11/26/22 0758 Sign date/Time: 11/26/22 0802 Procedure Note Rupali Harmon MD - 11/04/2023 [facility] Diagnostic Imaging Department [address] [place] [address] Patient: IRINA ERAZO Rhonda /Age/Sex: 1950 - 72 - F Unit#: [id number] Location/Status: [facility] Mnemonic/Ordering Site: [facility] Ordering Physician: ANDI STAFFORD MD Taina Screening Digital - 11/25/22 - 1518 HISTORY: The patient is a 72-year-old female presenting for routinescreening mammography. The patient has a family history of breast cancer involvinga sister at age 68, as well as a niece, age not specified. FINDINGS: CC and MLO views of both breasts were obtained using fullfield digital mammography in the [employer] Blackographe 2000-D unit. Computer aideddetection with the [place] community healthD Second Look 7.2-H was employed. In addition, breasttomosynthesis in MLO projection was performed. The breasts are again seen to be composed of a combination of fatty and fibroglandular elements (scattered areas of fibroglandular density,category B density, as calculated by [employer]para software), as also demonstratedon prior studies most [...] Benign Finding PQRI CPT II 3342F Code 04064, 46554 PQRI 225 CPT II 7025F Dictating Physician: RUPALI HARMON MD Electronically Signed by: RUPALI HARMON MD Dic Date/Time: 11/26/22 0758 Sign date/Time: 11/26/22 0802 us Andi Stafford MD IMG BI PROCEDURES Final Result * [facility] DEXA AXIAL SKELETON (11/23/2021 9:28 AM EST) Anatomical Region Laterality Modality Mammography 11/23/2021 8:58 AM EST Narrative 11/23/2021 9:28 AM EST [facility] Diagnostic Imaging Department [address] [place] [address] Patient: CASTROIRINA ROUSE /Age/Sex: 1950 - 71 - F Unit#: [id number] Location/Status: [facility]/REG CLI [facility] Ordering Physician: CHASE DUENAS MD [facility] Dexa Axial Skeleton - 11/23/21924 HISTORY: The [...] probability of hip fracture of 6.9%. Code 17027 Dictating Physician: RUPALI HARMON MD Electronically Signed by: RUPALI HARMON MD Dic Date/Time: 11/23/21926 Sign date/Time: 11/23/21927 Procedure Note Rupali Harmon MD - 09/22/2022 [facility] Diagnostic Imaging Department [address] [place] [address] Patient: IRINA ERAZO /Age/Sex: 1950 - 71 - F Unit#: [id number] Location/Status: [facility] Ordering Physician: CHASE DUENAS MD [facility] Dexa Axial Skeleton - 11/23/21924 HISTORY: [...] density of the femurs bilaterally is 0.934 gm/ft8iaava is 93% of that of young normals [...] probability of hip fracture of 6.9%. Code 33670 Dictating Physician: RUPALI HARMON MD Electronically Signed by: RUPALI HARMON MD Dic Date/Time: 11/23/21926 Sign date/Time: 11/23/21927 Chase Duenas MD IMG BI PROCEDURES Final Result from Last 3 Months or Most Recently Relevant to Health Maintenance Insurance [employer] - [place] MEDICARE ADVANTAGE Care Teams Apiarist Relationship Specialty Start Date End Date Andi Stafford MD [address] [place] [phone] PCP - General Internal Medicine 10/24/24
--- OUTSIDE RECORDS SUMMARY | 2025-07-29 12:23 | XMS_ITS | Patient Health Record ---
Author Organization [facility] [address] Address [address] [place] [address] Care Team Providers Care Vehicle Service Agent Name Role Phone MARCIE ALBRECHT Unavailable [phone] DORIE WRIGHT Unavailable [phone] RENZONBA Unavailable [phone] Allergies Allergen (clinical drug ingredient) Drug/Non Drug Allergy documented on EMR Reaction Allergy Type Onset Date Status sulfamethoxazole / trimethoprim Bactrim rash Drug Allergy Active Results Component Value Reference Range Notes TSH+T3+Free T4+T3 Free Reviewed date:06/27/2025 08:00:51 AM Interpretation: Performing Lab:[facility]candido Thakkar, [place], [place], Phone - [phone], Director - [facility] Notes/Report: TSH-ICMA 0.34 Reference Range: Non- Adult 0.450-4.500 First Trimester 0.100-4.000 Second Trimester 0.200-4.000 Third Trimester 0.300-4.500 Triiodothyronine (T-3), Serum 102 Reference Range: Adults: 55 - 170 Free T-3 3.3 Reference Range: >=20y: 2.0 - 4.4 Free T4 by Dialysis/Supervisor Blood Donor Recruiters 1.2 This test was developed and its performance characteristics determined by [facility]. It has not been cleared or approved by the Food and Drug Administration. Reference Range: Pubertal Children and Adults: 0.8 - 1.7 Lucero Valladares LP Default Reviewed date:11/23/2024 08:13:13 AM Interpretation: Performing Lab:[facility]and[facility] Thak[facility], [place], [place], Phone - [phone], Director - Chuyy Notes/Report: Lucero Valladares LP Default A hand-written panel/profile was received from your office. In accordance with the [employer] Ambiguous Test Code Policy dated April 2003, we have completed your order by using the closest currently or formerly recognized AMA panel. We have assigned Lipid Panel, Test Code #309143 to this request. If this is not the testing you wished to receive on this specimen, please contact the [employer] Client Inquiry/Technical Services Department to clarify the test order. We appreciate your business. Comp. Metabolic Panel (14)-3 Reviewed date:11/23/2024 08:11:04 AM Interpretation: Performing Lab:[facility]candido Thakkar, [address] [facility], [place], Phone - [phone], Director - Jose Notes/Report: Glucose 100 70-99 mg/dL BUN 17 [...] IU/L ALT (SGPT) 14 0-32 IU/L Lipid Panel-[id number] Reviewed date:11/23/2024 08:13:13 AM Interpretation: Performing Lab:[facility]candido Thakkar, [address] [facility], [place], Phone - [phone], Director - Jose Notes/Report: Cholesterol, Total 186 100-199 mg/dL Triglycerides 168 0-149 mg/dL HDL Cholesterol 45 >39 mg/dL VLDL Cholesterol Lenny 30 5-40 mg/dL LDL Chol Calc (NIH) 111 0-99 mg/dL Thyroglobulin Antibody-[id number] 5 Reviewed date:11/23/2024 08:13:13 AM Interpretation: Performing Lab:[facility], [address] [place] [address], Phone - [phone], Director - Jose Notes/Report: Thyroglobulin Antibody <1.0 0.0-0.9 IU/mL Thyroglobulin Antibody measured by [facility] . It should be noted that the presence of thyroglobulin antibodies may not be pathogenic nor diagnostic, especially at very low levels. The assay sleeve tailor has found that four percent of individuals without evidence of thyroid disease or autoimmunity will have positive TgAb levels up to 4 IU/mL. CBC With Differential/Platel et-[id number] Reviewed date:11/23/2024 08:13:13 AM Interpretation: Performing Lab:[facility], [address] [place] [address], Phone - [phone], Director - Jose Notes/Report: WBC 10.3 3.4-10.8 [...] Immature Grans (Abs) 0.0 0.0-0.1 x10E3/uL Vitamin [id number] Reviewed date:11/23/2024 08:13:13 AM Interpretation: Performing Lab:[facility], [address] [place] [address], [place], Phone - [phone], Director - Chuyy Notes/Report: Vitamin B12 594 724-2592 pg/mL Lucero Valladares CMP14 Default A hand-written panel/profile was received from your office. In accordance with the [facility] Ambiguous Test Code Policy dated April 2003, we have completed your order by using the closest currently or formerly recognized AMA panel. We have assigned Comprehensive Metabolic Panel (14), Test Code #[id number] to this request. If this is not the testing you wished to receive on this specimen, please contact the [facility] Client Inquiry/Technical Services Department to clarify the test order. We appreciate your business. Lipase-[id number] Reviewed date:11/23/2024 08:13:13 AM Interpretation: Performing Lab:[facility], [address] [facility], Phone - [phone], Director - [facility] Notes/Report: Lipase 24 14-85 U/L Amylase-[id number] Reviewed date:11/23/2024 08:13:13 AM Interpretation: Performing Lab:[facility], [address] [facility], Phone - [phone], Director - [facility] Notes/Report: Amylase 57 31-110 U/L Comp. Metabolic Panel (14)-3 [id number] Reviewed date:06/27/2025 08:00:51 AM Interpretation: Performing Lab:[facility], [address] [facility], [place], Phone - [phone], Director - [facility] Notes/Report: Glucose 106 70-99 mg/dL BUN 14 8-27 mg/dL Creatinine 0.91 0.57-1.00 mg/dL eGFR 66 >59 mL/min/1.73 BUN/Creatinine Ratio 15 12-28 Sodium 141 134-144 mmol/L Potassium 4.4 3.5-5.2 mmol/L Chloride 103 96-106 mmol/L Carbon Dioxide, Total 22 20-29 mmol/L Calcium 9.3 8.7-10.3 mg/dL Protein, Total 6.6 6.0-8.5 g/dL Albumin 4.3 3.8-4.8 g/dL Globulin, Total 2.3 1.5-4.5 g/dL Bilirubin, Total 0.4 0.0-1.2 mg/dL Alkaline Phosphatase 98 49-135 IU/L Pleas e note reference interval change AST (SGOT) 18 0-40 IU/L ALT (SGPT) 18 0-32 IU/L Lipid Panel-[id number] Reviewed date:06/27/2025 08:00:51 AM Interpretation: Performing Lab:[facility] [place], [facility], Phone - [phone], Director - Jose Notes/Report: Cholesterol, Total 172 100-199 mg/dL Triglycerides 91 0-149 mg/dL HDL Cholesterol 47 >39 mg/dL VLDL Cholesterol Lenny 17 5-40 mg/dL LDL Chol Calc (NIH) 108 0-99 mg/dL Vitamin D, 01-Fipfjsx-[id number] Reviewed date:06/27/2025 08:00:51 AM Interpretation: Performing Lab:[facility] [place], [address] [place] [address], Phone - [phone], Director - Jose Notes/Report: Vitamin D, 25-Hydroxy 37.2 30.0-100.0 ng/mL Vitamin D deficiency has been defined by the [place] of Medicine and an Endocrine Society practice guideline as a level of serum 25-OH vitamin D less than 20 ng/mL (1,2). The Endocrine Society went on to further define vitamin D insufficiency as a level between 21 and 29 ng/mL (2). 1. IOM ([place] of Medicine). 2010. Dietary reference intakes for calcium and D. [place]: The National Academies Press. 2. Elza MF, Vanesa NC, Olayinka HUYNH, et al. Evaluation, treatment, and prevention of vitamin D deficiency: an Endocrine Society clinical practice guideline. JCEM. 2010; 96(7):1911-30. CBC With Differential/Platel et-[id number] Reviewed date:06/27/2025 08:00:47 AM Interpretation: Performing Lab:[facility] [place], [address] [place] [address], [place], Phone - [phone], Director - Jose Notes/Report: WBC 11.8 3.4-10.8 x10E3/uL RBC 4.31 3.77-5.28 x10E6/uL Hemoglobin 13.0 11.1-15.9 g/dL Hematocrit 41.1 34.0-46.6 % MCV 95 79-97 fL MCH 30.2 26.6-33.0 pg MCHC 31.6 31.5-35.7 g/dL RDW 12.7 11.7-15.4 % Platelets 323 150-450 x10E3/uL Neutrophils 69 Not Estab. % Lymphs 22 Not Estab. % Monocytes 6 Not Estab. % Eos 2 Not Estab. % Basos 1 Not Estab. % Neutrophils (Absolute) 8.1 1.4-7.0 x10E3/uL Lymphs (Absolute) 2.6 0.7-3.1 x10E3/uL Monocytes(Absolute) 0.8 0.1-0.9 x10E3/uL Eos (Absolute) 0.2 0.0-0.4 x10E3/uL Baso (Absolute) 0.1 0.0-0.2 x10E3/uL Immature Granulocytes 0 Not Estab. % Immature Grans (Abs) 0.0 0.0-0.1 x10E3/uL Urinalysis, Complete-[id number] Reviewed date:06/27/2025 08:00:51 AM Interpretation: Performing Lab:[facility] [place], [address] [place] [address], Phone - [phone], Director - MDJodry Notes/Report: Specific [place] 1.020 1.005-1.030 pH 7.0 5.0-7.5 Urine-Color Yellow Yellow Appearance Cloudy Clear WBC Esterase 3+ Negative Protein 1+ Negative/Trace Glucose Negative Negative Ketones Trace Negative Occult Blood Trace Negative Bilirubin Negative Negative Urobilinogen,Semi-Qn 1.0 0.2-1.0 mg/dL Nitrite, Urine Positive Negative Microscopic Examination See below: Micr oscopic was indicated and was performed. WBC >30 0 - 5 /hpf RBC 0-2 0 - 2 /hpf Epithelial Cells (non renal) 0-10 0 - 10 /hpf Casts None seen None seen /lpf Bacteria None seen None seen/Few Vitamin [id number] Reviewed date:06/27/2025 08:00:51 AM Interpretation: Performing Lab:[facility] [place], [address] [facility], [place], Phone - [phone], Director - MDdry Notes/Report: Vitamin B12 942 687-9955 pg/mL Lucero Valladares CMP14 Default A hand-written panel/profile was received from your office. In accordance with the [facility] Code Policy dated April 2003, we have completed your order by using the closest currently or formerly recognized AMA panel. We have assigned Comprehensive Metabolic Panel (14), Test Code #[id number] to this request. If this is not the testing you wished to receive on this specimen, please contact the [facility] Client Inquiry/Technical Services Department to clarify the test order. We appreciate your business. Hemoglobin [id number] Reviewed date:06/27/2025 08:00:51 AM Interpretation: Performing Lab:[facility], [address] [place] [address], Phone - [phone], Director - [facility] Notes/Report: Hemoglobin A1c 6.1 4.8-5.6 % . Prediabetes: 5.7 - 6.4 Diabetes: >6.4 Glycemic control for adults with diabetes: <7.0 TSH+T4F+T3Free Reviewed date:11/23/2024 08:13:13 AM Interpretation: Performing Lab:[facility], [address] [facility], [place], Phone - [phone], Director - ORCammy Notes/Report: TSH 0.444 0.450-4.500 uIU/mL Triiodothyronine (T3), Free 3.5 2.0-4.4 pg/mL T4,Free(Direct) 1.59 0.82-1.77 ng/dL EKG Reviewed date:10/31/2024 09:45:06 PM Interpretation: Performing [...] RR_SystolicBP 0 RR_SystolicBP 0 Reason For Referral Diagnosis 1 Back pain, unspecifi ed back location, unspecified back pain laterality, unspecified chronicity (M54.9) Diagnosis 2 Lumbar foraminal ana nosis (M48.061) Referral Organization [facility] DARRYL KO Referring Provider First Name DORIE Referring Provider Last Name KYLE Referring Provider Speciality Internal M edicine Referred Provider Specialty Neurosurgery General Notes Karen Marks 2023 11:45:13 AM >faxed to [place] [phone] p [phone] with mri Clinical Notes Navjot Talbert 02:47:25 PM > The patient was seen on on 10/10/24 Referral Priority Routine Reason Evaluate & Treat Diagnosis 1 Serous otitis media, unspecified chronicity, unspecified laterality (H65.90) Referral Organization [facility] DARRYL KO Referring Provider First Name DORIE Referring Provider Last Name KYLE Referring Provider Speciality Internal M edicine Referred Provider Specialty Ear, nose an d throat surgeon General Notes Anjali Singleton 12/02 02:26:26 PM >Filled out form for ENT and faxed over with recent notes., p.[phone], f.[phone] Clinical Notes Navjot Talbert 03:33:27 PM > The patient was seen on 01/08/25 Referral Priority Routine Medications Medication SIG (Take, Route, Frequency, Duration) Notes Start Date End Date Status Losartan Potassium-HCTZ 100-12.5 MG Take 1 tablet by mouth once daily; Duration: 90 Active LORazepam 0.5 MG Take 1 tablet by joanne twice daily as needed; Duration: 30 07/26/2025 Active Azelastine HCl 137 MCG/SPRAY 2 puffs (1 spray in each nostril) Nasally Twice a day; Duration: 30 days 06/13/2025 Active Celecoxib 200 MG Take 1 capsule by mo [facility] once daily; Duration: 90 Active Trelegy Ellipta 200-62.5-25 MCG/ACT 1 puff Inhalation Once a day Active Calcium 500 MG 1 tablet with meals Orally once daily Active Vitamin D 50 MCG (1999 UT) 1 tablet Oral ly Once a day Active amLODIPine Besylate 5 MG 1 tablet Orally Once a day; Duration: 30 day(s) Active Omeprazole Magnesium 20 MG 1 tablet 1/2 to 1 hour before morning meal Orally Once a day; Duration: 90 days PRN Active Atorvastatin Calcium 40 MG Take 1 tablet by mouth once daily; Duration: 90 Active Cefpodoxime Proxetil 100 MG 1 tablet wit h food Orally every 12 hrs; Duration: 7 days 07/22/2025 Active Albuterol Sulfate (2.5 MG/3ML) 0.083% 3 mL as needed Inhalation every 6 hrs; Duration: 30 days 12/25/2024 Active Venlafaxine HCl ER 37.5 MG 1 capsule wit h food Orally Once a day; Duration: 90 days Active Immunizations Vaccine Route Administration Date Status [...] Status W/U Status Risk Notes Problem Vitamin B>12< deficiency anaemia (92569584) Vitamin B12 deficiency anemia, unspecified (D51.9) Active confirmed Problem Vitamin D deficiency (34214329) Vitamin D deficiency, unspecified (E55.9) Active confirmed Problem Hyperlipidemia (57971683) Hyperlipidemia, unspecified (E78.5) Active confirmed Problem Insomnia (378280408) Insomnia due to medical condition (G47.01) Active confirmed Problem Reactive airway disease (479475207032) Airway disease due to other specific organic dusts (J66.8) Active confirmed Problem Cholelithiasis without obstruction (28664772) Calculus of gallbladder without cholecystitis without obstruction (K80.20) Active confirmed Problem Fibromyalgia (860258063) Fibromyalgia (M79.7) Active confirmed Problem Snoring (42382037) Snoring (R06.83) Active conf irmed Problem Epigastric pain (64331338) Epigastric pain (R10.13) Active confirmed Problem C-reactive protein abnormal (025842812) Elevated C-reactive protein (CRP) (R79.82) Active confirmed Problem Adult health examination (556123472) Encounter for general adult medical examination without abnormal findings (Z00.00) Active confirmed Problem Abnormal blood pressure (27200162) Encounter for examination of blood pressure with abnormal findings (Z01.31) Active confirmed Problem Diabetes mellitus screening (336145246) Encounter for screening for diabetes mellitus (Z13.1) Active confirmed Problem Screening for cardiovascular system disease (385478662) Encounter for screening for cardiovascular disorders (Z13.6) Active confirmed Problem Prediabetes (912472113) Prediabetes (R73.03) Active confirmed Problem Neuropathy (832753718) Neuropathy (G62.9) Active confirmed Problem Hyperlipidaemia (21396815) Hyperlipidemia, unspecified hyperlipidemia type (E78.5) Active confirmed Problem Migraine (85053483) Migraine without status migrainosus, not intractable, unspecified migraine type (G43.909) Active confirmed Problem Acquired hypothyroidism (075510560) Acquired hypothyroidism (E03.9) Active confirmed Problem Anxiety (65923142) Anxiety (F41.9) Active confi rmed Problem Hypothyroidism (20581481) Hypothyroidism, unspecified type (E03.9) Active confirmed Problem Vitamin D deficiency (91677800) Vitamin D deficiency (E55.9) Active confirmed Problem Obesity (238521147) Obesity (BMI 30-39.9) (E66.9) Active confirmed Problem Headache (05737798) Headache, unspecified (R51.9) Active confirmed Problem New daily persistent headache (disorder) (423432696444220) Persistent headaches (R51.9) Active confirmed Problem Amnesia (03635127) Memory change (R41.3) Active confirmed Problem Vitamin B>12< deficiency anaemia (09804218) Anemia due to vitamin B12 deficiency, unspecified B12 deficiency type (D51.9) Active confirmed Problem Primary hypertension (82189829) Primary hypertension (I10) Active confirmed Problem Moderate recurrent major depression (96800214) Moderate episode 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) Active confirmed Problem Peripheral vascular disease (214614705) Claudication of both lower extremities (I73.9) Active confirmed Problem Liver disease (713554593) Hepatic lesion (K76.9) Active confirmed Problem Claudication (28460334) Claudication (I73.9) Active confirmed Problem CT of abdomen abnormal (51070681320835347 ) Abnormal CT of the abdomen (R93.5) Active confirmed Problem Asthma (481702823) Asthma (J45.909) Active conf irmed Problem Lipid screening (743634012) Lipid screening (Z13.220) Active confirmed Problem Low back pain (finding) (616144880) Lumbar back pain (M54.50) Active confirmed Problem Globus sensation (165273043) Globus sensation (R09.A2) Active confirmed Problem Spondylosis without myelopathy (56087241) 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) Active confirmed Problem Cervical arthritis (671309425) Cervical arthritis (M47.812) Active confirmed Problem Lumbar spinal stenosis (90391642) Lumbar foraminal stenosis (M48.061) Active confirmed Problem Non-suppurative otitis media (787816766) Serous otitis media, unspecified chronicity, unspecified laterality (H65.90) Active confirmed Vital Signs Heart Rate 96 /min 07/22/2025 Oximetry 93 % 07/22/2025 Blood pressure diastolic 86 mm Hg 07/22/2025 Height 61 in 07/22/2025 Blood pressure systolic 158 mm Hg 07/22/2025 Weight 163.4 lbs 07/22/2025 BMI 30.87 kg/m2 07/22/2025 Encounters Encounter Location Date Provider Diagnosis [facility] [address] 08/23/2024 MARCIE ALBRECHT Lumbar back pain M54 .50 ; Medicare annual wellness visit, subsequent Z00.00 ; Depression screen Z13.31 ; Encounter for screening for other disorder Z13.89 ; Obesity (BMI 30-39.9) E66.9 and Advanced care planning/counseling discussion Z71.[address] 10/25/2024 MARCIE ALBRECHT Obesity (BMI 30-39.9 ) E66.9 ; Primary hypertension I10 ; Prediabetes R73.03 ; Anxiety F41.9 and Insomnia due to medical condition G47.[address] 10/31/2024 NBA MULLER Acute upper respirat ory infection, unspecified J06.9 ; Fibromyalgia M79.7 ; Primary hypertension I10 ; Anxiety F41.9 ; Headache, unspecified R51.9 and Dizzy R42 [facility] 11/22/2024 MARCIE ALBRECHT Shortness of breath R06.02 ; Acute upper respiratory infection, unspecified J06.9 ; Fibromyalgia M79.7 ; Anxiety F41.9 ; Headache, unspecified R51.9 and Dizzy R42 [facility] [address] [place], [place] 12/25/2024 MARCIE ALBRECHT Primary hypertension I10 ; Insomnia due to medical condition G47.01 ; Asthma J45.909 and Fibromyalgia M79.[address] [facility] [address] [place], [place] 03/06/2025 DORIE WRIGHT Primary hypertension I10 ; Encounter for examination of blood pressure with abnormal findings Z01.31 and Anxiety F41.9 [facility] [address] [place], [place] 03/12/2025 MARCIE AMBROCIO Shortness of breath R06.02 ; Primary hypertension I10 ; Anxiety F41.9 and Encounter for examination of blood pressure with abnormal findings Z01.31 [facility] [address] [place], [place] 06/13/2025 MARCIE AMBROCIO Shortness of breath R06.02 ; Post-nasal drip R09.82 ; Primary hypertension I10 ; Anxiety F41.9 and Encounter for examination of blood pressure with abnormal findings Z01.31 [facility] [address] [place], [place] 07/22/2025 MARCIE ALBRECHT Dysuria R30.0 ; Post-nasal drip R09.82 ; Primary hypertension I10 ; Anxiety F41.9 and Encounter for examination of blood pressure with abnormal findings Z01.31 [facility] [address] [facility] [address] [place], [place] 07/23/2025 MARCIE CAMPBELLA [facility] [address] [place], [place] 08/23/2024 DORIE WRIGHT [facility] [address] [facility] [address] [place], [place] 10/30/2024 MARCIE AMBROCIO [facility] [address] [facility] [address] [place], [place] 10/31/2024 NBA MULLER [facility] [address] [facility] [address] [place], [place] 11/20/2024 MARCIE AMBROCIO [facility] [address] [facility] [address] [place], [place] 11/22/[address]ORIE WRIGHT [facility] [address] [place] [address] 03/25/2025 MARCIE CAMPBELLA [facility] [address] [place] [address] 04/01/2025 DORIE WRIGHT [facility] [address] [facility] [address] [place] [address] 07/19/2025 MARCIE CAMPBELLA Assessments Encounter Date Diagnosis (ICD Code) Assessment Notes Treatment Notes Treatment Clinical Notes Section Notes 08/23/2024 Medicare annual wellness visit, subsequent (ICD-10 [...] log exercise and discussed fitness Apps like emere which can help keep log off calories [...] lumbar spine. Case discussed with collaborating physician Mrelin Stafford who reviewed the assessment and plan. Chart, medications, labs, vital signs reviewed. Dictation was accomplished with the use of Ditto voice recognition software, prone to medical misidentifications [...] log exercise and discussed fitness Apps like emere which can help keep log off calories [...] Dictation was accomplished with the use of Ditto voice recognition software, prone to medical misidentifications [...] spine. Case discussed with collaborating physician Luke tSafford who reviewed the assessment and plan. Chart, medications, labs, vital signs reviewed. Dictation was accomplished with the use of Ditto voice recognition software, prone to medical misidentifications [...] Dictation was accomplished with the use of Ditto voice recognition software, prone to medical misidentifications [...] Dictation was accomplished with the use of Ditto voice recognition software, which is prone to [...] Dictation was accomplished with the use of Ditto voice recognition software, which is prone to [...] Dictation was accomplished with the use of Ditto voice recognition software, which is prone to [...] Dictation was accomplished with the use of Ditto voice recognition software, which is prone to [...] Dictation was accomplished with the use of Ditto voice recognition software, which is prone to medical misidentifications and grammatical errors. This are unintentional and the practitioner does try to identify and correct these, but some could still be present. Please do not hesitate to contact practitioner for clarification. 12/25/2024 Insomnia due to medical condition (ICD-10 - G47.01) #Chronic Exertional Dyspnea : Sees desizing machine back tender and was prescribed Trelegy Ellipta for her dyspnea. She reports some relief of her congestion symptoms from the nasal solution prescribed by the desizing machine back tender. Continued use of Trelegy Ellipta should be [...] Dictation was accomplished with the use of Ditto voice recognition software, prone to medical misidentifications [...] - I10) #Chronic Exertional Dyspnea : Sees desizing machine back tender and was prescribed Trelegy Ellipta for her dyspnea. She reports some relief of her congestion symptoms from the nasal solution prescribed by the desizing machine back tender. Continued use of Trelegy Ellipta should be [...] Dictation was accomplished with the use of Ditto voice recognition software, prone to medical misidentifications [...] Dictation was accomplished with the use of Ditto voice recognition software, prone to medical misidentifications [...] Dictation was accomplished with the use of Ditto voice recognition software, prone to medical misidentifications [...] Dictation was accomplished with the use of Ditto voice recognition software, prone to medical misidentifications [...] Dictation was accomplished with the use of Ditto voice recognition software, prone to medical misidentifications and grammatical errors. This is unintentional and the practitioner does try to identify and correct these, but some could still be present. Please do not hesitate to contact practitioner for clarification. 06/13/2025 Shortness of breath (ICD-10 - R06.02) Irina is a pleasant 74-year-old female presents the office for follow up # Hypertension: Patient taking losartan hydrochlorothiazide 100/12.5 mg and amlodopine 5 mg po daily. BP improved. Will resume. # Post nasal gtt. Trial Azestaline. # Anxiety: Patient also admits to increased [...] Dictation was accomplished with the use of Ditto voice recognition software, prone to medical misidentifications and grammatical errors. This is unintentional and the practitioner does try to identify and correct these, but some could still be present. Please do not hesitate to contact practitioner for clarification. 06/13/2025 Post-nasal drip (ICD-10 - R09.82) Irina is a pleasant 74-year-old female presents the office for follow up # Hypertension: Patient taking losartan hydrochlorothiazide 100/12.5 mg and amlodopine 5 mg po daily. BP improved. Will resume. # Post nasal gtt. Trial Azestaline. # Anxiety: Patient also admits to increased [...] Dictation was accomplished with the use of Ditto voice recognition software, prone to medical misidentifications and grammatical errors. This is unintentional and the practitioner does try to identify and correct these, but some could still be present. Please do not hesitate to contact practitioner for clarification. 07/22/2025 Dysuria (ICD-10 - R30.0) Irina is a pleasant 74-year-old female presents the office for follow up # UTI, pyuria.Will send out for official urine culture. Will treat with cefpodoxime. # Hypertension: Patient taking losartan hydrochlorothiazide 100/12.5 mg and amlodopine 5 mg po daily. BP improved. Will resume. # Post nasal gtt. Trial Azestaline. # Anxiety: Patient also admits to increased [...] Dictation was accomplished with the use of Ditto voice recognition software, prone to medical misidentifications and grammatical errors. This is unintentional and the practitioner does try to identify and correct these, but some could still be present. Please do not hesitate to contact practitioner for clarification. 07/22/2025 Post-nasal drip (ICD-10 - R09.82) Irina is a pleasant 74-year-old female presents the office for follow up # UTI, pyuria.Will send out for official urine culture. Will treat with cefpodoxime. # Hypertension: Patient taking losartan hydrochlorothiazide 100/12.5 mg and amlodopine 5 mg po daily. BP improved. Will resume. # Post nasal gtt. Trial Azestaline. # Anxiety: Patient also admits to increased [...] Dictation was accomplished with the use of Ditto voice recognition software, prone to medical misidentifications and grammatical errors. This is unintentional and the practitioner does try to identify and correct these, but some could still be present. Please do not hesitate to contact practitioner for clarification. 07/22/2025 Primary hypertension (ICD-10 - I10) Irina is a pleasant 74-year-old female presents the office for follow up # UTI, pyuria.Will send out for official urine culture. Will treat with cefpodoxime. # Hypertension: Patient taking losartan hydrochlorothiazide 100/12.5 mg and amlodopine 5 mg po daily. BP improved. Will resume. # Post nasal gtt. Trial Azestaline. # Anxiety: Patient also admits to increased [...] Dictation was accomplished with the use of Ditto voice recognition software, prone to medical misidentifications and grammatical errors. This is unintentional and the practitioner does try to identify and correct these, but some could still be present. Please do not hesitate to contact practitioner for clarification. 06/13/2025 Primary hypertension (ICD-10 - I10) Irina is a pleasant 74-year-old female presents the office for follow up # Hypertension: Patient taking losartan hydrochlorothiazide 100/12.5 mg and amlodopine 5 mg po daily. BP improved. Will resume. # Post nasal gtt. Trial Azestaline. # Anxiety: Patient also admits to increased [...] Dictation was accomplished with the use of Ditto voice recognition software, prone to medical misidentifications [...] Dictation was accomplished with the use of Ditto voice recognition software, prone to medical misidentifications [...] Dictation was accomplished with the use of Ditto voice recognition software, prone to medical misidentifications and grammatical errors. This is unintentional and the practitioner does try to identify and correct these, but some could still be present. Please do not hesitate to contact practitioner for clarification. 12/25/2024 Asthma (ICD-10 - J45.909) #Chronic Exertional Dyspnea : Sees desizing machine back tender and was prescribed Trelegy Ellipta for her dyspnea. She reports some relief of her congestion symptoms from the nasal solution prescribed by the desizing machine back tender. Continued use of Trelegy Ellipta should be [...] Dictation was accomplished with the use of Ditto voice recognition software, prone to medical misidentifications [...] Dictation was accomplished with the use of Ditto voice recognition software, which is prone to [...] Dictation was accomplished with the use of Ditto voice recognition software, prone to medical misidentifications [...] log exercise and discussed fitness Apps like emere which can help keep log off calories [...] Dictation was accomplished with the use of Ditto voice recognition software, prone to medical misidentifications [...] log exercise and discussed fitness Apps like emere which can help keep log off calories [...] Dictation was accomplished with the use of Ditto voice recognition software, prone to medical misidentifications [...] Dictation was accomplished with the use of Ditto voice recognition software, prone to medical misidentifications [...] Dictation was accomplished with the use of Ditto voice recognition software, which is prone to medical misidentifications and grammatical errors. This are unintentional and the practitioner does try to identify and correct these, but some could still be present. Please do not hesitate to contact practitioner for clarification. 12/25/2024 Fibromyalgia (ICD-10 - M79.7) #Chronic Exertional Dyspnea : Sees desizing machine back tender and was prescribed Trelegy Ellipta for her dyspnea. She reports some relief of her congestion symptoms from the nasal solution prescribed by the desizing machine back tender. Continued use of Trelegy Ellipta should be [...] Dictation was accomplished with the use of Ditto voice recognition software, prone to medical misidentifications [...] Dictation was accomplished with the use of Ditto voice recognition software, which is prone to [...] Dictation was accomplished with the use of Ditto voice recognition software, prone to medical misidentifications and grammatical errors. This is unintentional and the practitioner does try to identify and correct these, but some could still be present. Please do not hesitate to contact practitioner for clarification. 06/13/2025 Anxiety (ICD-10 - F41.9) Irina is a pleasant 74-year-old female presents the office for follow up # Hypertension: Patient taking losartan hydrochlorothiazide 100/12.5 mg and amlodopine 5 mg po daily. BP improved. Will resume. # Post nasal gtt. Trial Azestaline. # Anxiety: Patient also admits to increased [...] Dictation was accomplished with the use of Ditto voice recognition software, prone to medical misidentifications and grammatical errors. This is unintentional and the practitioner does try to identify and correct these, but some could still be present. Please do not hesitate to contact practitioner for clarification. 07/22/2025 Anxiety (ICD-10 - F41.9) Irina is a pleasant 74-year-old female presents the office for follow up # UTI, pyuria.Will send out for official urine culture. Will treat with cefpodoxime. # Hypertension: Patient taking losartan hydrochlorothiazide 100/12.5 mg and amlodopine 5 mg po daily. BP improved. Will resume. # Post nasal gtt. Trial Azestaline. # Anxiety: Patient also admits to increased [...] Dictation was accomplished with the use of Ditto voice recognition software, prone to medical misidentifications and grammatical errors. This is unintentional and the practitioner does try to identify and correct these, but some could still be present. Please do not hesitate to contact practitioner for clarification. 07/22/2025 Encounter for examination of blood pressure with abnormal findings (ICD-10 - Z01.31) Irina is a pleasant 74-year-old female presents the office for follow up # UTI, pyuria.Will send out for official urine culture. Will treat with cefpodoxime. # Hypertension: Patient taking losartan hydrochlorothiazide 100/12.5 mg and amlodopine 5 mg po daily. BP improved. Will resume. # Post nasal gtt. Trial Azestaline. # Anxiety: Patient also admits to increased [...] Dictation was accomplished with the use of Ditto voice recognition software, prone to medical misidentifications and grammatical errors. This is unintentional and the practitioner does try to identify and correct these, but some could still be present. Please do not hesitate to contact practitioner for clarification. 06/13/2025 Encounter for examination of blood pressure with abnormal findings (ICD-10 - Z01.31) Irina is a pleasant 74-year-old female presents the office for follow up # Hypertension: Patient taking losartan hydrochlorothiazide 100/12.5 mg and amlodopine 5 mg po daily. BP improved. Will resume. # Post nasal gtt. Trial Azestaline. # Anxiety: Patient also admits to increased [...] Dictation was accomplished with the use of Ditto voice recognition software, prone to medical misidentifications [...] Dictation was accomplished with the use of Ditto voice recognition software, which is prone to [...] Dictation was accomplished with the use of Ditto voice recognition software, which is prone to [...] Dictation was accomplished with the use of Ditto voice recognition software, prone to medical misidentifications [...] log exercise and discussed fitness Apps like emere which can help keep log off calories [...] Dictation was accomplished with the use of Ditto voice recognition software, prone to medical misidentifications [...] log exercise and discussed fitness Apps like emere which can help keep log off calories [...] Dictation was accomplished with the use of Ditto voice recognition software, prone to medical misidentifications [...] Dictation was accomplished with the use of Ditto voice recognition software, which is prone to [...] Dictation was accomplished with the use of Ditto voice recognition software, which is prone to [...] LIPID PANEL, STANDARD 05/29/2024 LIPID PANEL, STANDARD 06/13/2025 LIPID PANEL, STANDARD 05/16/2023 LIPID PANEL, STANDARD 06/10/2022 COMPREHENSIVE METABOLIC PANEL 05/16/2023 COMPREHENSIVE METABOLIC PANEL 06/10/2022 COMPREHENSIVE METABOLIC PANEL 05/29/2024 COMPREHENSIVE METABOLIC PANEL 10/25/2024 COMPREHENSIVE METABOLIC PANEL 06/13/2025 COMPREHENSIVE METABOLIC PANEL 01/10/2023 COMPREHENSIVE METABOLIC PANEL 11/22/2024 CBC (INCLUDES DIFF/PLT) 11/22/2024 CBC (INCLUDES DIFF/PLT) 01/10/2023 CBC (INCLUDES DIFF/PLT) 06/13/2025 CBC (INCLUDES DIFF/PLT) 10/25/2024 CBC (INCLUDES DIFF/PLT) 05/29/2024 CBC (INCLUDES DIFF/PLT) 06/10/2022 CBC (INCLUDES DIFF/PLT) 05/16/2023 URINALYSIS, COMPLETE 05/16/2023 URINALYSIS, COMPLETE 06/10/2022 URINALYSIS, COMPLETE 05/29/2024 URINALYSIS, COMPLETE 06/13/2025 URINALYSIS, COMPLETE W/REFLEX TO CULTURE 07/22/2025 HEMOGLOBIN A1c 06/13/2025 HEMOGLOBIN A1c 05/29/2024 HEMOGLOBIN A1c 10/25/2024 HEMOGLOBIN A1c 05/16/2023 LIPASE 11/22/2024 LIPASE 01/10/2023 AMYLASE 01/10/2023 AMYLASE 11/22/2024 VITAMIN B12 05/29/2024 VITAMIN B12 06/13/2025 VITAMIN B12 11/22/2024 T4, FREE 05/29/2024 TSH 05/29/2024 TSH 05/16/2023 T3, FREE 05/29/2024 VITAMIN D,25-OH,TOTAL,IA 05/29/2024 VITAMIN D,25-OH,TOTAL,IA 05/16/2023 VITAMIN D,25-OH,TOTAL,IA 06/10/2022 VITAMIN D,25-OH,TOTAL,IA 06/13/2025 PPC Urine Dip 07/22/2025 Next Appt Details Provider Name:MACRIE ALBRECHT, 08/27/2025 10:30:00 AM, [address], [place], [address], Insurance Providers Payer Name Payer Address Payer Phone Subscriber Number Group Number Insured Name Patient Relationship to Insured Coverage Start Date Coverage End Date [employer] [address] [place] [address] [phone] [id number] IRINA BOONE Self - patient is the insured Medical (General) History Medical History History ICD Code GERD without esophagitis K21.9 Essential (primary) hypertension I10 Fibromyalgia M79.7 Hyperlipidemia, mild E78.5 Anxiety F41.9 Insomnia due to medical condition G47.01 Overweight E66.3 Migraines Exertional dyspnea R06.00 Surgical History Surgery Date(Month/Year) cervical surgery Status post cholecystectomy September 2 at [facility]
== END 2025-07-29 10:35 | disposition home or self-care (01) ==
LOC: HO.HPS 10:17
PROVIDERS: PCP Internal Medicine; Visit Provider Internal Medicine Pulmonary Disease
DX: J45.909 Unspecified asthma, uncomplicated (principal); Z91.09 Other allergy status, other than to drugs and biological substances; R06.02 Shortness of breath
CPT/HCPCS: 99214; G2211

== ENCOUNTER → 2025-07-29 10:16 | Outpatient (BNVA) | payer MEDICARE, SELFPAY | PROVIDERS: PCP Internal Medicine; Visit Provider Internal Medicine Pulmonary Disease | DX: J45.909 Unspecified asthma, uncomplicated (principal); Z91.09 Other allergy status, other than to drugs and biological substances; R06.02 Shortness of breath | CPT/HCPCS: 99212 ==